=== PATIENT | female | born 1950 | race Caucasian/White ===

== ENCOUNTER 2017-06-25 18:42 | Inpatient (IN) | payer MEDICARE, OTHER ==
[~2017-06-25] VITALS: Ht 165.1 cm; Wt 77.0 kg
[~2017-06-25 18:42] MED LIST: ATROPINE 1 MG/10 ML SYRINGE ONE; CA CHLORIDE 10% 10 ML SYRINGE ONE; EPINEPHrine 0.1 MG/ML SYG ONE; NA BICARBONATE 8.4% 50 ML SYG ONE
[2017-06-25 19:22] LABS: ABNORMAL IP MESSAGE 1; HEMATOCRIT 38.6 % (37.0-47.0); HEMOGLOBIN 12.5 g/dl (12.0-16.0); MEAN CORPUSCULAR HEMOGLOBIN 33.4 pg (29.0-33.0); MEAN CORPUSCULAR HGB CONC 32.4 g/dl (32.0-37.0); MEAN CORPUSCULAR VOLUME 103.2 fl (82.0-101.0); MEAN PLATELET VOLUME 10.5 fl (7.4-10.4); NUCLEATED RED BLOOD CELLS% 0.5 /100WBC (0.0-0.0); PLATELET COUNT 165 10^3/UL (140-415); RED BLOOD COUNT 3.74 10^6/ul (4.20-5.40); RED CELL DISTRIBUTION WIDTH 12.4 % (11.5-14.5); WHITE BLOOD COUNT 6.4 10^3/ul (4.8-10.8)
[2017-06-25 19:25] LABS: POSITIVE DIFF @See below
[2017-06-25 19:37] LABS: INR 1.15; PROTIME 14.7 Sec (12.2-14.2); PT RATIO 1.1
[2017-06-25 19:38] LABS: PARTIAL THROMBOPLASTIN TIME 45.8 Sec (25.0-35.0)
--- NOTE | 2017-06-25 19:39 | RADRPT ---
PROCEDURE: XR Chest. CLINICAL INDICATION: Chest Pain. TECHNIQUE: Single frontal view of the chest was obtained COMPARISON: None FINDINGS: External defibrillator pads project over the lower thorax and left upper quadrant, obscuring underly ing anatomy, and limiting evaluation. There is an endotracheal tube which terminates approximate are centimeters above the walker. There are low lung volumes. The cardiomediastinal silhouette is likely within normal limits, evaluation is limited, as above. There is atherosclerotic calcification of the aorta. There is mild central bronchial wall thickening and diffuse mild interstitial prominence with hazy i nterstitial opacities throughout the left lung. No pneumothorax or significant pleural effusion is seen. The osseous structures, as visualized, are unremarkable. IMPRESSION: 1. Endotracheal tube terminating approximate 4 cm above the walker. 2. Central bronchial wall thickening and diffuse mild prominence of interstitial markings with diff use interstitial opacities, more prominent throughout the left lung, nonspecific but suggestive of a symmetric interstitial pulmonary edema versus bronchogenic pneumonia. 3. Thoracic aortic atherosclerotic disease. RPTAT: QQ Physician Poncho Date Time Electronically viewed and signed by Physician Poncho on 06/25/2017 19:38 LEONIDAS/
[2017-06-25 19:48] LABS: AADO2 Arterial 559.3 mmHg (7.0-24.0); Arterial Base Excess -23.8 mmol/L (-3.0-3); Arterial COHb 0.3 % (0.0-3.0); Arterial Fraction of Oxyhgb 93.1 % (93.0-99.0); Arterial HCO3 8.7 mmol/L (22.0-26.0); Arterial MetHb 0.4 % (0.0-1.5); Arterial Total Hemglobin 12.7 g/dl (12.0-18.0); Blood Gas Mean Airway Pressure 9.7; Blood Gas PS 15; MODE VENT - AC
[2017-06-25 20:00] LABS: MONOCYTES % (M) 3 % (0-11); PLATELET ESTIMATE NORMAL
[2017-06-25] MEDS ORDERED: NA BICARBONATE 8.4% 50 ML SYG IV ONE ×2 (20:00→21:30)
[2017-06-25 20:19] LABS: ALBUMIN 3.4 g/dl (3.3-4.9); ALBUMIN/GLOBULIN RATIO 1.47; BILIRUBIN,INDIRECT 0.1 mg/dl (0-1.1); BILIRUBIN,TOTAL 0.1 mg/dl (0.2-1.3); CALCIUM 9.3 mg/dl (8.4-10.2); CREATININE 1.18 mg/dl (0.44-1.00); TOTAL PROTEIN 5.7 g/dl (6.1-8.1)
[2017-06-25 20:30] LABS: TROPONIN-I 0.078 ng/ml (0.00-0.12)
[2017-06-25] MEDS ORDERED: IOHEXOL 350MG/ML 50 ML BTL ONE (20:59)
[2017-06-25] MEDS ORDERED: IOHEXOL 100 ML ONE (20:59)
[2017-06-25] MEDS ORDERED: SOD CHLORIDE 0.9% 100 ML ONE (20:59)
[2017-06-25] MEDS ORDERED: SOD CHLORIDE 0.9% 1,000 ML IV SCH (21:01)
[2017-06-25] MEDS: SOD CHLORIDE 0.9% 1,000 ML IV SCH (21:01)
[2017-06-25] MEDS ORDERED: ALBUTEROL/IPRATROPIUM (NEB) 3 ML AMP NEB PRN (21:30)
[2017-06-25] MEDS ORDERED: ACETAMINOPHEN 650MG/20.3ML CUP PO PRN ×2 (21:30)
[2017-06-25] MEDS ORDERED: LORAZEPAM 2 MG INJ IV PRN (21:30)
[2017-06-25] MEDS ORDERED: PROPOFOL 100 ML IV SCH (21:30)
[2017-06-25] MEDS ORDERED: ONDANSETRON 4 MG INJ IV PRN (21:30)
[2017-06-25] MEDS ORDERED: ACETAMINOPHEN 650 MG SUPP PR PRN ×2 (21:30)
[2017-06-25] MEDS: ACCU-CHEK XX SCH ×3 (21:30→23:30)
[2017-06-25] MEDS ORDERED: DEXTROSE 50% 50 ML SYRINGE IV PRN ×2 (21:30)
[2017-06-25] MEDS ORDERED: LEVETIRACETAM 1000 MG (PMX) 100 ML IVPB ONE (21:30)
[2017-06-25] MEDS ORDERED: DEXAMETHASONE 10 MG/ML 1 ML INJ IV ONE (21:30)
[2017-06-25] MEDS ORDERED: MEPERIDINE 25 MG INJ IV PRN ×2 (21:30)
[2017-06-25] MEDS ORDERED: NORepinephrine 8MG/250 ML (PMX 250 ML IV SCH (21:30)
--- NOTE | 2017-06-25 23:28 | RADRPT ---
PROCEDURE: CTA chest pulmonary angiography. CLINICAL INDICATION: Cardiac arrest. Possible pulmonary embolism. TECHNIQUE: CT angiography of the chest was performed after the uneventful intravenous administratio n of 125 cc of Omnipaque 350. Coronal and sagittal reformations were performed. 3-D/multiplanar re formations were performed by the technologist and an independent workstation. The total exam CTDI = 42.25, 90.15 mGy and the DLP equals 770.64 mGy-cm. One or more of the following dose reduction techniques were used: - Automated exposure control. - Adjustment of the mA and/or kV according to patient size. - Use of iterative reconstruction technique. COMPARISON: Chest x-ray dated 06/25/2017. FINDINGS: Pulmonary angiogram: There are no emboli through the level of the subsegmental pulmonary arteries. The main pulmonary artery is normal in caliber and there is no evidence of right heart strain. Lungs, pleura, airways, and thoracic inlet: There is dense consolidation throughout the entire left lower lobe, within the superior segment of the right lower lobe, and dependent upper lobes bilatera lly. There is extensive interlobular septal thickening with superimpose ground-glass opacity in the remaining aerated upper lobes, which is patchy through the remaining aerated lower lobes. There are small bilateral pleural effusions. There is no pneumothorax. There is a well-positioned tracheosto my in place and an NG tube with its tip in the stomach. There is a 15 mm hypodense nodule in the lef t thyroid lobe. Cardiovascular system, mediastinum, and lymphatics: The heart is normal in size without pericardial thickening or effusion. There is a small retrosternal hematoma, possibly related to resuscitation. T here are atherosclerotic changes of the aorta, which is nonaneurysmal. There is a ductus diverticulu m of the aorta. There is no axillary, hilar, or mediastinal adenopathy. Visualized upper abdomen: There are benign cysts within the visualized liver. Musculoskeletal system and soft tissues: There are no concerning osseous lesions. The soft tissues are unremarkable. IMPRESSION: 1. No pulmonary emboli through the level of the subsegmental pulmonary arteries. 2. Extensive consolidation involving the entire left lower lobe, superior segment of the right lowe r lobe, and dependent upper lobes bilaterally. Extensive interlobular septal thickening with superim posed ground-glass opacity throughout the remaining aerated lung. Differential considerations inclu de ARDS, extensive aspiration, and multifocal pneumonia. Small bilateral pleural effusions. No pneu mothorax. 3. Small retrosternal hematoma, which may be related to resuscitation. 4. Hypodense nodule in the left thyroid lobe measuring 1.5 cm. Ultrasound can be performed for fur ther evaluation. RPTAT: HLBP .Jani Uribe MD, MD Date Time Electronically viewed and signed by .Jani Uribe MD, on 06/25/2017 23:28 .P/
[2017-06-25 23:29] LABS: AADO2 Arterial 570.2 mmHg (7.0-24.0); Arterial COHb 0.3 % (0.0-3.0); Arterial Fraction of Oxyhgb 96.8 % (93.0-99.0); Arterial HCO3 15.5 mmol/L (22.0-26.0); Arterial MetHb 0.3 % (0.0-1.5); Arterial Total Hemglobin 12.3 g/dl (12.0-18.0); Blood Gas Mean Airway Pressure 14; MODE VENT - AC
--- NOTE | 2017-06-25 23:39 | RADRPT ---
PROCEDURE: CT brain without contrast. CLINICAL INDICATION: Altered mental status. TECHNIQUE: CT scan of the brain was performed on a multi-detector high-resolution CT scanner. Co ntiguous axial images were obtained from the skull base to the vertex without intravenous contrast. Coronal and sagittal reformatted images were also obtained. Images were reviewed on the PACS works tation. One or more of the following dose reduction techniques were used: - Automated exposure control. - Adjustment of the mA and/or kV according to patient size. - Use of iterative reconstruction technique. Exam CTD/vol = 43.18 mGy. Total exam DLP = 851.98 mGy-cm. COMPARISON: None. FINDINGS: The ventricles and cortical sulci are prominent consistent with mild cerebral volume loss. There are no areas of abnormal attenuation within the brain parenchyma. There is no mass effect or midline sh ift. There is no intracranial hemorrhage or abnormal extra-axial collection. There is a small calcif ication within the right lateral ventricle. There are mild atherosclerotic calcifications within keri ateral distal internal carotid arteries. The calvarium is intact. There is no evidence of fracture. Visualized paranasal sinuses and mastoid air cells are clear. IMPRESSION: No acute intracranial abnormality identified. Mild cerebral volume loss. Mild cerebral atherosclerosis. .Ric Montez MD, Date Time Electronically viewed and signed by .Ric Montez MD, on 06/25/2017 23:38 .T/
[2017-06-25] MEDS: PROPOFOL 100 ML IV SCH (23:59)
[2017-06-26] VITALS (48 sets, daily range): BP systolic 94–166; BP diastolic 56–118; PULSE 56–86; RESP 15–20; TEMP 92; Ht 165.1 cm; Wt 77.0 kg
[2017-06-26] MEDS ORDERED: VECURONIUM 10 MG VIAL IV SCH
[2017-06-26] MEDS: INSULIN HUMAN REGULAR 100 UNIT in SOD CHLORIDE 0.9% 99 ML IV SCH (00:18)
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
[2017-06-26] MEDS: ACCU-CHEK XX SCH ×24 (00:31→23:39)
[2017-06-26] MEDS: VECURONIUM 100 MG in DEXTROSE 5% 100 ML IV SCH ×2 (01:30→21:48)
[2017-06-26 01:51] LABS: CK-MB 80.1 ng/ml (0.0-2.4)
[2017-06-26] MEDS ORDERED: NA BICARBONATE 8.4% 50 ML SYG IV ONE (02:00)
[2017-06-26] MEDS ORDERED: CEFEPIME 1GM/50 ML (PMX) 50 ML IVPB ONE (02:00)
[2017-06-26] MEDS ORDERED: VANCOMYCIN 1.5 GM in SOD CHLORIDE 0.9% 250 ML IVPB ONE (02:00)
[2017-06-26 02:06] LABS: TROPONIN-I 1.18 ng/ml (0.00-0.12)
[2017-06-26] MEDS: ARTIFICIAL TEARS 15 ML OPH BOTH EYES SCH ×4 (04:30→18:28)
[2017-06-26] MEDS: OCULAR LUBRICANT 3.5 GM OPH OINT BOTH EYES SCH ×4 (04:30→18:22)
[2017-06-26 05:59] LABS: ABNORMAL IP MESSAGE 1; BASOPHILS % 0.1 % (0.0-2.0); HEMATOCRIT 40.5 % (37.0-47.0); HEMOGLOBIN 13.2 g/dl (12.0-16.0); LYMPHOCYTES # 0.6 10^3/ul (0.8-2.9); MEAN CORPUSCULAR HEMOGLOBIN 31.4 pg (29.0-33.0); MEAN CORPUSCULAR HGB CONC 32.6 g/dl (32.0-37.0); MEAN CORPUSCULAR VOLUME 96.2 fl (82.0-101.0); MEAN PLATELET VOLUME 9.6 fl (7.4-10.4); MONOCYTE # 0.4 10^3/ul (0.3-0.9); MONOCYTES % 2.9 % (0.0-11.0); NEUTROPHILS % 92.5 % (39.0-77.0); PLATELET COUNT 141 10^3/UL (140-415); RED BLOOD COUNT 4.21 10^6/ul (4.20-5.40); RED CELL DISTRIBUTION WIDTH 12.9 % (11.5-14.5); WHITE BLOOD COUNT 14.1 10^3/ul (4.8-10.8)
[2017-06-26] MEDS ORDERED: PANTOPRAZOLE 40 MG INJ IV SCH (06:00)
[2017-06-26 06:02] LABS: INR 1.15; PROTIME 14.7 Sec (12.2-14.2); PT RATIO 1.1
[2017-06-26 06:03] LABS: PARTIAL THROMBOPLASTIN TIME 24.4 Sec (25.0-35.0)
[2017-06-26 06:15] LABS: ALBUMIN 3.7 g/dl (3.3-4.9); ALBUMIN/GLOBULIN RATIO 1.68; BILIRUBIN,INDIRECT 0.4 mg/dl (0-1.1); BILIRUBIN,TOTAL 0.4 mg/dl (0.2-1.3); CALCIUM 8.3 mg/dl (8.4-10.2); CREATININE 0.83 mg/dl (0.44-1.00); TOTAL PROTEIN 5.9 g/dl (6.1-8.1)
[2017-06-26 06:17] LABS: MAGNESIUM 1.8 mg/dl (1.7-2.5); PHOSPHORUS 2.4 mg/dl (2.5-4.9); POSITIVE DIFF @See below; POTASSIUM 2.9 mmol/L (3.5-5.1)
[2017-06-26] MEDS: SOD CHLORIDE 0.9% 1,000 ML IV SCH (06:54)
[2017-06-26] MEDS ORDERED: VANCOMYCIN IV PER PHARMACY XX SCH (07:00)
[2017-06-26] MEDS ORDERED: POTASSIUM CHLORIDE 250 ML IVPB ONE (07:00)
[2017-06-26 07:09] LABS: TROPONIN-I 1.2 ng/ml (0.00-0.12)
--- NOTE | 2017-06-26 07:13 | HP ---
Date/Time of Note Date/Time of Note DATE: 06/26/17 TIME: 06:55 Assessment/Plan VTE Prophylaxis VTE Prophylaxis Intervention: SCD's Lines/Catheters IV C[facility]ter Type [facility]from [facility] Central Line Urinary Cath still in place: Yes Assessment/Plan Assessment/Plan 1. Status post V-fib cardiopulmonary arrest: 40 minutes of resuscitation before ROSC -Will initiate hypothermia protocol -Broad-spectrum antibiotic -Continue vent support. Pressor support as needed -Cardiology and pulmonary consult -will obtain a 2D echo -Neurology consult to evaluate for brain activity -Prognosis is extremely poor 2. Vent dependent respiratory failure -Chest x-ray with extensive consolidation in the right lower lung, most likely aspiration aspiration -Continue vent support and antibiotic -Pulmonary to manage 3. Severe metabolic acidosis -Started bicarb drip 4. Shock liver -Continue hemodynamic stability 5. Renal insufficiency -Nephrology consult CODE STATUS: Full Prognosis: Extremely poor Total critical time spent: About 1 hour HPI/ROS Admit Date/Time Admit Date/Time Jun 25, 2017 at 21:12 Hx of Present Illness This is a 51-year-old female with no past medical history who was brought to the ER after cardiac arrest. Patient was doing water aerobic exercise when she collapsed. CPR was initiated by bystanders. When EMS arrived, she had agonal breathing and had very faint pulse. Shortly after however pulse was lost and was found to be in ventricular fibrillation. ROSC after about 40 minutes of resuscitation including shocks. When she arrived to the ER, she was unresponsive with dilated pupils. No gag or corneal reflex. Initially febrile with a temperature of 100.5. Labs shows creatinine 1.18, bicarb 12, glucose 369, AST 534, ALT 340. ABG on 100% FiO2 showed a pH of 6.9, PCO2 44, PO2 109 bicarb 9. . PMH/Family/Social Past Medical History Medical History: other (Unknown) Past Surgical History Past Surgical Hx: other (Unknown) Family History Significant Family History: other (Unknown) Social History Alcohol Use: other (Unknown) Smoking Status: Unknown if ever smoked Drug Use: other (Unknown) Exam/Review of Systems Vital Signs Vitals Vital Signs Date Time Temp Pulse Resp B/P Pulse Ox O2 Delivery O2 Flow Rate FiO2 06/26/17 06:30 74 20 122/92 100 06/26/17 06:25 50 06/26/17 06:00 Mechanical Ventilator 06/26/17 05:00 90.6 Intake and Output 06/25/17 06/25/17 06/26/17 15:00 23:00 07:00 Intake Total 0 ml Output Total 1613 ml Balance -1613 ml Exam Constitutional: other (Intubated sedated, unresponsive) Head: atraumatic, normocephalic Respiratory: crackles/rales, diminished breath sounds, wheezing Cardiovascular: other (Tachycardic) Gastrointestinal: soft Extremities: normal pulses Labs Result Diagram: 06/26/1751906/26/17 05 Medications Medications Current Medications Sodium Chloride (NS) 1,000 ml @ 100 mls/hr Q10H IV Last administered on 21:01; Admin Dose 100 MLS/HR; Start 06/25/17 at 21:01 Ondansetron HCl (Zofran Inj) 4 mg Q6H PRN IV NAUSEA AND/OR VOMITING; Start at 21:30 Acetaminophen (Tylenol Supp) 650 mg Q4H PRN [place] PAIN LEVEL 1-3 OR FEVER; Start 06/25/17 at 21:30 Lorazepam (Ativan) 1 mg Q2H PRN IV ANXIETY Last administered on 06/25/17 22:02 ; Admin Dose 1 MG; Start 06/25/17 at 21:30 Pantoprazole (Protonix Iv) 40 mg DAILY@06 IV ; Start 06/26/17 at 06:00 Diagnostic Test (Pha) (Accu-Chek) 1 ea Q1H XX Last administered on 06/26/17 05 :41; Admin Dose 1 EA; Start 06/25/17 at 21:30 Dextrose (D50w Syringe) 25 ml Q15M PRN IV Till BS 80 mg/dL or above x2; Start 06/25/17 at 21:30 Dextrose (D50w Syringe) 50 ml Q15M PRN IV Till BS 80 mg/dL or above x2; Start 06/25/17 at 21:30 Meperidine HCl (Demerol) 12.5 mg Q4H PRN IV POST OPERATIVE SHIVERING; Start at 21:30 Meperidine HCl (Demerol) 25 mg Q4H PRN IV POST OPERATIVE SHIVERING; Start 06/25 at 21:30 Eye Lubricant (Akwa Oint) 1 applic Q6 BOTH EYES ; Start 06/26/17 at 00:00 Eye Lubricant 2 drop 2 drop Q6 BOTH EYES ; Start 06/26/17 at 00:00 Vecuronium [place] 100 mg/ Dextrose 100 ml @ 4.62 mls/hr [id number] IV Last administered on 06/26/17t 01:30; Admin Dose 4.62 MLS/HR; Start 06/26/17 at 00:30 Potassium Chloride 250 ml @ 62.5 mls/hr ONCE ONCE IVPB ; Start 06/26/17 at 07: 00; Stop 06/26/17 at 10:59 Potassium Chloride 20 meq/ Sodium Chloride 110 ml @ 55 mls/hr ONCE ONCE IVPB ; Start 06/26/17 at 11:00; Stop 06/26/17 at 12:59 Cefepime HCl (Maxipime 1gm/50 ml (Pmx)) 50 ml @ 100 mls/hr Q12 IVPB ; Start at 09:00; Status UNV DIA RODRIGUEZ MD Jun 26, 2017 07:11
[2017-06-26 08:49] LABS: AADO2 Arterial 493.8 mmHg (7.0-24.0); Arterial Base Excess -12.3 mmol/L (-3.0-3); Arterial COHb 0.3 % (0.0-3.0); Arterial Fraction of Oxyhgb 98.3 % (93.0-99.0); Arterial HCO3 14.7 mmol/L (22.0-26.0); Arterial MetHb 0.4 % (0.0-1.5); Arterial Total Hemglobin 14.1 g/dl (12.0-18.0); Blood Gas Mean Airway Pressure 15; MODE VENT - AC
[2017-06-26] MEDS: CEFEPIME 1GM/50 ML (PMX) 50 ML IVPB SCH ×2 (09:02→22:19)
[2017-06-26 09:46] LABS: Allen Test ACCEPTAB; Arterial Base Excess -9.6 mmol/L (-3.0-3); Arterial COHb 0.3 % (0.0-3.0); Arterial Fraction of Oxyhgb 96.6 % (93.0-99.0); Arterial HCO3 15.6 mmol/L (22.0-26.0); Arterial MetHb 0.3 % (0.0-1.5); Arterial Total Hemglobin 14.6 g/dl (12.0-18.0); MODE VENT - AC
--- NOTE | 2017-06-26 10:24 | CONS ---
Date/Time of Note Date/Time of Note DATE: 06/26/17 TIME: 10:18 Assessment/Plan Assessment/Plan Additional Assessment/Plan CT head was done yesterday which is essentially unremarkable. Chest x-ray also was reviewed which is showing endotracheal tube at an adequate level. There are patchy bilateral alveolar infiltrates. Next Current ventilator setting; AC of 20, tidal volume 500, PEEP of 5, 40% FiO2. Patient is on propofol at 5 mics per kilogram per minute. Insulin drip. Vecuronium drip. Assessment and recommendations; 1. Patient admitted with cardiac arrest status post along CPR. 2. Likely aspiration pneumonia. 3. Rhabdo myelolysis. 4. Acute renal injury. 5. Shock liver. Continue current treatment. Add sodium bicarbonate drip. Monitor renal function. Will obtain follow-up chest x-ray in 24 hours. Continue current antibiotics. Outcome will depend upon adequate neurological recovery. Consultation Date/Type/Reason Admit Date/Time Jun 25, 2017 at 21:12 Date of Consultation: Jun 26, 2017 Type of Consultation: Pulmonary/critical care Reason for Consultation Pulmonary consultation obtained for evaluation of respiratory failure. Next History of presenting illness; patient is a 66-year-old white lady who was brought into the hospital yesterday after sustaining cardiac arrest while doing aerobic exercise. Patient had a long CPR done lasting approximately 40 minutes with revival of vital signs. By the time I saw the patient this morning the patient is orally intubated, on mechanical ventilation and on hypothermia protocol. History was obtained from medical records. Past medical history; essentially unremarkable. Next Medications; reviewed. Allergies; not available. Family history, social history, occupational histories not available. Review of systems; currently unable to be obtained. General exam; elderly woman, orally intubated, sedated and paralyzed. Past Medical History Medical History: other (Unknown) Past Surgical History Past Surgical Hx: other (Unknown) Social History Alcohol Use: other (Unknown) Smoking Status: Unknown if ever smoked Drug Use: other (Unknown) Exam/Review of Systems Vital Signs Vitals Vital Signs Date Time Temp Pulse Resp B/P Pulse Ox O2 Delivery O2 Flow Rate FiO2 06/26/17 08:00 82 06/26/17 07:00 91.5 06/26/17 06:30 20 122/92 100 06/26/17 06:25 50 06/26/17 06:00 Mechanical Ventilator Intake and Output 06/25/17 06/25/17 06/26/17 15:00 23:00 07:00 Intake Total 16.32 ml Output Total 1792 ml Balance -1775.68 ml Exam HEENT exam; supple neck, no JVD. No lymphadenopathy. Midline trachea. No thyromegaly. Orally intubated. Pupils are midsize and sluggishly reactive to light. Patient has fair dentition. Chest exam; clear to auscultation. S1-S2 audible, no murmurs. Regular rhythm. Abdomen exam; soft, no organomegaly. Bowel sounds are absent. Extremity exam; no peripheral edema. Pulses 1+ bilaterally. TRAINING DEVELOPMENT SPECIALIST exam; patient is sedated and paralyzed. Results Result Diagram: 06/26/17 0520 06/26/17 0520 Results 24 hrs Laboratory Tests Test 06/25/17 19:00 06/25/17 19:10 06/25/17 19:50 06/25/17 21:01 Blood Gas Specimen Source Blood arterial Blood arterial Arterial Blood Date Drawn 06/25/2017 7:40:28 PM 06/25/2017 11:20:35 PM Arterial Blood pH (Temp corrected) 6.907 *L 7.256 *L Arterial Blood pCO2 (Temp correct) 44.5 35.3 Arterial Blood pO2 (Temp corrected) 109.2 H 110.1 H Arterial Blood HCO3 8.7 *L 15.5 L Arterial Blood Base Excess -23.8 L -11.0 L Arterial Blood Oxygen Saturation 93.8 L 97.4 Azeem Test N/A N/A Arterial Blood Gas Puncture Site LB Femoral Arterial Blood Carboxyhemoglobin 0.3 0.3 Arterial Blood Methemoglobin 0.4 0.3 Blood Gas A-a O2 Differential 559.3 H 570.2 H Oxyhemoglobin Percent 93.1 96.8 Total Hemoglobin 12.7 12.3 Blood Gas Temperature 37.0 36.0 Blood Gas Respiration Rate 20.0 20.0 Blood Gas Actual Respiration Rate 27 30 Blood Gas Modality VENT - AC VENT - AC FiO2 100.0 100.0 Blood Gas Tidal Volume 450.0 450.0 Blood Gas Mean Airway Pressure 9.7 14 Blood Gas Low PEEP Setting 10.0 10.0 Blood Gas Inspiratory Pressure 15.0 24.0 Blood Gas Pressure Support 15 Blood Gas Critical Value Read Back [place] PERDOMO DR., G. Blood Gas Notified Whom BL BL Blood Gas Notified Time 06/25/2017 7:48:27 PM 06/25/2017 11:28:50 PM White Blood Count 6.4 Red Blood Count 3.74 L Hemoglobin 12.5 Hematocrit 38.6 Mean Corpuscular Volume 103.2 H Mean Corpuscular Hemoglobin 33.4 H Mean Corpuscular Hemoglobin Concent 32.4 Red Cell Distribution Width 12.4 Platelet Count 165 Mean Platelet Volume 10.5 H Neutrophils % Segmented Neutrophils % (Manual) 6 L Lymphocytes % Lymphocytes % (Manual) 91 H Monocytes % Monocytes % (Manual) 3 Eosinophils % Basophils % Nucleated Red Blood Cells % 0.5 H Neutrophils # (Manual) Absolute Lymphocytes (Manual) 5.8 H Lymphocytes # Monocytes # Absolute Monocytes (Manual) 0.1 L Eosinophils # Basophils # Nucleated Red Blood Cells # Platelet Estimate NORMAL Prothrombin Time 14.7 H Prothrombin Time Ratio 1.1 INR International Normalized Ratio 1.15 Activated Partial Thromboplast Time 45.8 H Sodium Level 137 Potassium Level 4.0 Chloride Level 104 Carbon Dioxide Level 12 L Anion Gap 25 H Blood Urea Nitrogen 18 Creatinine 1.18 H Glucose Level 369 H Calcium Level 9.3 Total Bilirubin 0.1 L Direct Bilirubin 0.00 Indirect Bilirubin 0.1 Aspartate Amino Transf (AST/SGOT) 534 H Alanine Aminotransferase (ALT/SGPT) 340 H Alkaline Phosphatase 64 Troponin I 0.078 Total Protein 5.7 L Albumin 3.4 Globulin 2.30 Albumin/Globulin Ratio 1.47 Test 06/25/17 23:59 06/26/17 00:37 06/26/17 01:09 06/26/17 01:27 Bedside Glucose 237 H 235 H 193 Creatine Kinase Creatine Kinase Index 0.8 Creatinine Kinase MB (Mass) 80.10 H Troponin I 1.180 *H Test 06/26/17 02:28 06/26/17 03:01 06/26/17 03:27 06/26/17 04:52 Bedside Glucose 165 170 171 Blood Gas Specimen Source Blood arterial Arterial Blood Date Drawn 06/26/2017 3:10:20 AM Arterial Blood pH (Temp corrected) 7.263 *L Arterial Blood pCO2 (Temp correct) 31.7 L Arterial Blood pO2 (Temp corrected) 196.5 H Arterial Blood HCO3 14.7 L Arterial Blood Base Excess -12.3 L Arterial Blood Oxygen Saturation 99.0 H Azeem Test N/A Arterial Blood Gas Puncture Site Femoral Arterial Blood Carboxyhemoglobin 0.3 Arterial Blood Methemoglobin 0.4 Blood Gas A-a O2 Differential 493.8 H Oxyhemoglobin Percent 98.3 Total Hemoglobin 14.1 Blood Gas Temperature 33.2 Blood Gas Respiration Rate 20.0 Blood Gas Actual Respiration Rate 20 Blood Gas Modality VENT - AC FiO2 100.0 Blood Gas Tidal Volume 450.0 Blood Gas Mean Airway Pressure 15 Blood Gas Low PEEP Setting 10.0 Blood Gas Inspiratory Pressure 26.0 Blood Gas Critical Value Read Back HYDRO EXCAVATION OPERATORJIMMY ARTEAGA. Blood Gas Notified Whom BL Blood Gas Notified Time 06/26/2017 3:19:02 AM Test 06/26/17 05:20 06/26/17 05:40 06/26/17 06:31 06/26/17 07:59 White Blood Count 14.1 #H Red Blood Count 4.21 Hemoglobin 13.2 Hematocrit 40.5 Mean Corpuscular Volume 96.2 Mean Corpuscular Hemoglobin 31.4 Mean Corpuscular Hemoglobin Concent 32.6 Red Cell Distribution Width 12.9 Platelet Count 141 Mean Platelet Volume 9.6 Neutrophils % 92.5 H Lymphocytes % 4.0 L Monocytes % 2.9 Eosinophils % 0.0 Basophils % 0.1 Nucleated Red Blood Cells % 0.0 Neutrophils # (Manual) 13 H Lymphocytes # 0.6 L Monocytes # 0.4 Eosinophils # 0.0 Basophils # 0.0 Nucleated Red Blood Cells # 0.0 Prothrombin Time 14.7 H Prothrombin Time Ratio 1.1 INR International Normalized Ratio 1.15 Activated Partial Thromboplast Time 24.4 L Fibrinogen 160.0 L Sodium Level 148 H Potassium Level 2.9 *L Chloride Level 109 Carbon Dioxide Level 21 Anion Gap 21 H Blood Urea Nitrogen 19 Creatinine 0.83 Glucose Level 185 # Calcium Level 8.3 L Phosphorus Level 2.4 L Magnesium Level 1.8 Total Bilirubin 0.4 Direct Bilirubin 0.00 Indirect Bilirubin 0.4 Aspartate Amino Transf (AST/SGOT) 992 H Alanine Aminotransferase (ALT/SGPT) 406 H Alkaline Phosphatase 75 Creatine Kinase 00330 H Creatine Kinase Index 0.8 Creatinine Kinase MB (Mass) 115.00 H Troponin I 1.200 *H Total Protein 5.9 L Albumin 3.7 Globulin 2.20 Albumin/Globulin Ratio 1.68 Amylase Level 244 H Bedside Glucose 167 167 136 Test 06/26/17 09:01 06/26/17 10:05 Blood Gas Specimen Source Blood arterial Arterial Blood Date Drawn 06/26/2017 9:35:27 AM Arterial Blood pH (Temp corrected) 7.338 L Arterial Blood pCO2 (Temp correct) 28.9 L Arterial Blood pO2 (Temp corrected) 85.6 Arterial Blood HCO3 15.6 L Arterial Blood Base Excess -9.6 L Arterial Blood Oxygen Saturation 97.2 Azeem Test ACCEPTAB Arterial Blood Gas Puncture Site Right Radial Arterial Blood Carboxyhemoglobin 0.3 Arterial Blood Methemoglobin 0.3 Blood Gas A-a O2 Differential 169.0 H Oxyhemoglobin Percent 96.6 Total Hemoglobin 14.6 Blood Gas Temperature 34.3 Blood Gas Respiration Rate 20.0 Blood Gas Actual Respiration Rate 20 Blood Gas Modality VENT - AC FiO2 40.0 Blood Gas Tidal Volume 500.0 Blood Gas Low PEEP Setting 5.0 Blood Gas Notified Whom CW Blood Gas Notified Time 06/26/2017 9:46:28 AM Bedside Glucose 150 Medications Medications Current Medications Sodium Chloride (NS) 1,000 ml @ 100 mls/hr Q10H IV Last administered on 06:54; Admin Dose 100 MLS/HR; Start 06/25/17 at 21:01 Ondansetron HCl (Zofran Inj) 4 mg Q6H PRN IV NAUSEA AND/OR VOMITING; Start at 21:30 Acetaminophen (Tylenol Supp) 650 mg Q4H PRN [place] PAIN LEVEL 1-3 OR FEVER; Start 06/25/17 at 21:30 Lorazepam (Ativan) 1 mg Q2H PRN IV ANXIETY Last administered on 06/25/17 22:02 ; Admin Dose 1 MG; Start 06/25/17 at 21:30 Pantoprazole (Protonix Iv) 40 mg DAILY@06 IV Last administered on 06/26/17 06: 53; Admin Dose 40 MG; Start 06/26/17 at 06:00 Diagnostic Test (Pha) (Accu-Chek) 1 ea Q1H XX Last administered on 06/26/17 08 :00; Admin Dose 1 EA; Start 06/25/17 at 21:30 Dextrose (D50w Syringe) 25 ml Q15M PRN IV Till BS 80 mg/dL or above x2; Start 06/25/17 at 21:30 Dextrose (D50w Syringe) 50 ml Q15M PRN IV Till BS 80 mg/dL or above x2; Start 06/25/17 at 21:30 Meperidine HCl (Demerol) 12.5 mg Q4H PRN IV POST OPERATIVE SHIVERING; Start at 21:30 Meperidine HCl (Demerol) 25 mg Q4H PRN IV POST OPERATIVE SHIVERING; Start 06/25 at 21:30 Eye Lubricant (Akwa Oint) 1 applic Q6 BOTH EYES Last administered on 06/26/17 06:53; Admin Dose 1 APPLIC; Start 06/26/17 at 00:00 Eye Lubricant 2 drop 2 drop Q6 BOTH EYES Last administered on 06/26/17 06:53; Admin Dose 2 DROP; Start 06/26/17 at 00:00 Vecuronium [place] 100 mg/ Dextrose 100 ml @ 4.62 mls/hr [id number] IV Last administered on 06/26/17 01:30; Admin Dose 4.62 MLS/HR; Start 06/26/17 at 00:30 Potassium Chloride 250 ml @ 62.5 mls/hr ONCE ONCE IVPB Last administered on 06:54; Admin Dose 62.5 MLS/HR; Start 06/26/17 at 07:00; Stop 06/26/17 at 10:59 Potassium Chloride 20 meq/ Sodium Chloride 110 ml @ 55 mls/hr ONCE ONCE IVPB ; Start 06/26/17 at 11:00; Stop 06/26/17 at 12:59 Cefepime HCl 50 ml @ 100 mls/hr Q12 IVPB Last administered on 06/26/17 09:02 ; Admin Dose 100 MLS/HR; Start 06/26/17 at 09:00 Vancomycin HCl (Vancocin) 250 ml @ 125 mls/hr Q12H IVPB ; Start 06/26/17 at 15: 00 KATEY ROWE Jun 26, 2017 10:24
--- NOTE | 2017-06-26 10:52 | RADRPT ---
PROCEDURE: XR Chest. CLINICAL INDICATION: Shortness of breath. TECHNIQUE: A single portable view of the chest was obtained. COMPARISON: 06/25/2017 FINDINGS: A nasogastric tube is seen in the proximal gastric lumen. The endotracheal tube is essentially uncha nged. The cardiomediastinal silhouette is within normal limits. Diffuse ill-defined air space diseas e is seen which is increased compared to the prior examination. No discrete pleural effusion is seen . The soft tissues and osseous structures are unremarkable. IMPRESSION: 1. Interval placement of a nasogastric tube with the tip in the proximal gastric lumen. Recommend advancement approximately 45 cm. 2. Diffuse ill-defined air space disease which is increased compared to the prior examination. RPTAT: HPNM Physician Kavin Date Time Electronically viewed and signed by Physician Kavin on 06/26/2017 10:52 /
[2017-06-26] MEDS ORDERED: POTASSIUM CHLORIDE 20 MEQ in SOD CHLORIDE 0.9% 100 ML IVPB ONE (11:00)
[2017-06-26 11:26] LABS: ABNORMAL IP MESSAGE 1; BASOPHILS % 0.2 % (0.0-2.0); HEMOGLOBIN 13.4 g/dl (12.0-16.0); LYMPHOCYTES # 0.6 10^3/ul (0.8-2.9); LYMPHOCYTES % 4.1 % (15.0-51.0); MEAN CORPUSCULAR HEMOGLOBIN 32.4 pg (29.0-33.0); MEAN CORPUSCULAR HGB CONC 34.4 g/dl (32.0-37.0); MEAN CORPUSCULAR VOLUME 94.4 fl (82.0-101.0); MEAN PLATELET VOLUME 9.6 fl (7.4-10.4); MONOCYTE # 0.6 10^3/ul (0.3-0.9); MONOCYTES % 4.2 % (0.0-11.0); PLATELET COUNT 132 10^3/UL (140-415); RED BLOOD COUNT 4.13 10^6/ul (4.20-5.40); RED CELL DISTRIBUTION WIDTH 12.6 % (11.5-14.5); WHITE BLOOD COUNT 14.5 10^3/ul (4.8-10.8)
[2017-06-26 11:29] LABS: POSITIVE DIFF @See below
[2017-06-26 11:30] LABS: NEUTROPHILS % 90.9 % (39.0-77.0)
[2017-06-26 11:36] LABS: INR 1.03; PARTIAL THROMBOPLASTIN TIME 23.3 Sec (25.0-35.0); PROTIME 13.5 Sec (12.2-14.2); PT RATIO 1.1
[2017-06-26 11:40] LABS: CALCIUM 7.9 mg/dl (8.4-10.2); CREATININE 0.73 mg/dl (0.44-1.00); MAGNESIUM 1.6 mg/dl (1.7-2.5); PHOSPHORUS 2.2 mg/dl (2.5-4.9); POTASSIUM 3.5 mmol/L (3.5-5.1)
[2017-06-26 11:51] LABS: TROPONIN-I 1.25 ng/ml (0.00-0.12)
[2017-06-26] MEDS: SODIUM BICARBONATE (IV ADD) 100 MEQ in DEXTROSE 5% 900 ML IV SCH (12:16)
--- NOTE | 2017-06-26 13:48 | RADRPT ---
Vent Rate: 71 bpm RR Interval: 0 msec CO Interval: 174 msec QRS Duration: 104 msec QT Interval: 484 msec QTC Interval: 525 msec P-R-T [place]: 77 - 20 - 72 degrees Sinus rhythm with occasional , and consecutive premature ventricular complexes Nonspecific ST abnormality Prolonged QT Abnormal ECG Electronically Signed By: Leif Obrien [id number]
--- NOTE | 2017-06-26 13:53 | RADRPT ---
Vent Rate: 72 bpm RR Interval: 0 msec NM Interval: 176 msec QRS Duration: 104 msec QT Interval: 470 msec QTC Interval: 514 msec P-R-T [place]: 73 - 18 - 70 degrees Sinus rhythm with occasional premature ventricular complexes Nonspecific ST abnormality Prolonged QT Abnormal ECG Electronically Signed By: Leif Obrien [id number]
[2017-06-26] MEDS ORDERED: LABETALOL HCL 20MG INJ IV PRN (15:00)
[2017-06-26] MEDS ORDERED: MAGNESIUM SULFATE 1 GM/D5W 100 ML IVPB ONE (15:00)
[2017-06-26] MEDS: VANCOMYCIN 1 GM in NS 250 ML IVPB SCH (15:20)
[2017-06-26 15:21] LABS: AADO2 Arterial 195.8 mmHg (7.0-24.0); Allen Test ACCEPTAB; Arterial Base Excess -10.1 mmol/L (-3.0-3); Arterial COHb 0.3 % (0.0-3.0); Arterial Fraction of Oxyhgb 94.7 % (93.0-99.0); Arterial HCO3 14.9 mmol/L (22.0-26.0); Arterial MetHb 0.1 % (0.0-1.5); Arterial Total Hemglobin 14.5 g/dl (12.0-18.0); MODE VENT - AC
[2017-06-26 18:06] LABS: BASOPHILS % 0.1 % (0.0-2.0); HEMATOCRIT 35.3 % (37.0-47.0); HEMOGLOBIN 12.1 g/dl (12.0-16.0); LYMPHOCYTES # 0.8 10^3/ul (0.8-2.9); LYMPHOCYTES % 7.7 % (15.0-51.0); MEAN CORPUSCULAR HEMOGLOBIN 32.2 pg (29.0-33.0); MEAN CORPUSCULAR HGB CONC 34.3 g/dl (32.0-37.0); MEAN CORPUSCULAR VOLUME 93.9 fl (82.0-101.0); MEAN PLATELET VOLUME 9.5 fl (7.4-10.4); MONOCYTE # 0.3 10^3/ul (0.3-0.9); NEUTROPHILS % 88.6 % (39.0-77.0); PLATELET COUNT 115 10^3/UL (140-415); RED BLOOD COUNT 3.76 10^6/ul (4.20-5.40); RED CELL DISTRIBUTION WIDTH 12.5 % (11.5-14.5); WHITE BLOOD COUNT 10.7 10^3/ul (4.8-10.8)
[2017-06-26 18:22] LABS: INR 1.03; PROTIME 13.5 Sec (12.2-14.2); PT RATIO 1.1
[2017-06-26 18:23] LABS: PARTIAL THROMBOPLASTIN TIME 23.5 Sec (25.0-35.0)
[2017-06-26 18:27] LABS: CALCIUM 7.6 mg/dl (8.4-10.2); CREATININE 0.66 mg/dl (0.44-1.00); MAGNESIUM 2.1 mg/dl (1.7-2.5)
[2017-06-26 18:41] LABS: TROPONIN-I 1.43 ng/ml (0.00-0.12)
[2017-06-26] MEDS: PROPOFOL 100 ML IV SCH (20:05)
[2017-06-26 21:05] LABS: Allen Test ACCEPTAB; Arterial Base Excess -4.7 mmol/L (-3.0-3); Arterial COHb 0.3 % (0.0-3.0); Arterial Fraction of Oxyhgb 96.8 % (93.0-99.0); Arterial HCO3 18.5 mmol/L (22.0-26.0); Arterial MetHb 0.1 % (0.0-1.5); Arterial Total Hemglobin 13.3 g/dl (12.0-18.0); Blood Gas Mean Airway Pressure 11; MODE VENT - AC
[2017-06-26] MEDS ORDERED: ACETAMINOPHEN 650 MG SUPP PR SCH (21:30)
[2017-06-26] MEDS ORDERED: ACETAMINOPHEN 650MG/20.3ML CUP PO SCH (21:30)
[2017-06-26] MEDS: FAMOTIDINE 20 MG INJ IV SCH (22:19)
[2017-06-26 23:41] LABS: BASOPHILS % 0.1 % (0.0-2.0); EOSINOPHILS % 0.1 % (0.0-7.0); HEMATOCRIT 35.1 % (37.0-47.0); HEMOGLOBIN 12.5 g/dl (12.0-16.0); LYMPHOCYTES # 0.9 10^3/ul (0.8-2.9); LYMPHOCYTES % 5.7 % (15.0-51.0); MEAN CORPUSCULAR HEMOGLOBIN 32.6 pg (29.0-33.0); MEAN CORPUSCULAR HGB CONC 35.6 g/dl (32.0-37.0); MEAN CORPUSCULAR VOLUME 91.4 fl (82.0-101.0); MEAN PLATELET VOLUME 10.3 fl (7.4-10.4); MONOCYTE # 0.6 10^3/ul (0.3-0.9); MONOCYTES % 3.7 % (0.0-11.0); NEUTROPHILS % 89.7 % (39.0-77.0); PLATELET COUNT 127 10^3/UL (140-415); RED BLOOD COUNT 3.84 10^6/ul (4.20-5.40); RED CELL DISTRIBUTION WIDTH 12.5 % (11.5-14.5); WHITE BLOOD COUNT 15.2 10^3/ul (4.8-10.8)
[2017-06-27] VITALS (62 sets, daily range): BP systolic 77–159; BP diastolic 44–107; PULSE 55–111; RESP 14–24
[2017-06-27 00:01] LABS: INR 0.95; PROTIME 12.7 Sec (12.2-14.2)
[2017-06-27 00:01] LABS: AADO2 Arterial 276.8 mmHg (7.0-24.0); Allen Test ACCEPTAB; Arterial Base Excess -3.7 mmol/L (-3.0-3); Arterial COHb 0.3 % (0.0-3.0); Arterial Fraction of Oxyhgb 98.4 % (93.0-99.0); Arterial HCO3 18.8 mmol/L (22.0-26.0); Arterial MetHb 0.1 % (0.0-1.5); Arterial Total Hemglobin 13.7 g/dl (12.0-18.0); Blood Gas Mean Airway Pressure 11; MODE VENT - AC
[2017-06-27 00:02] LABS: CALCIUM 7.7 mg/dl (8.4-10.2); CREATININE 0.53 mg/dl (0.44-1.00); MAGNESIUM 1.7 mg/dl (1.7-2.5); PHOSPHORUS 2.7 mg/dl (2.5-4.9); POTASSIUM 3.1 mmol/L (3.5-5.1)
[2017-06-27 00:15] LABS: TROPONIN-I 1.57 ng/ml (0.00-0.12)
[2017-06-27] MEDS: ACCU-CHEK XX SCH ×24 (00:30→23:32)
[2017-06-27] MEDS: ARTIFICIAL TEARS 15 ML OPH BOTH EYES SCH ×5 (00:56→23:55)
[2017-06-27] MEDS: OCULAR LUBRICANT 3.5 GM OPH OINT BOTH EYES SCH ×5 (00:56→23:55)
[2017-06-27] MEDS: INSULIN HUMAN REGULAR 100 UNIT in SOD CHLORIDE 0.9% 99 ML IV SCH (00:59)
[2017-06-27] MEDS ORDERED: SOD CHLORIDE 0.9% 1,000 ML IV ONE (01:00)
[2017-06-27] MEDS: SODIUM BICARBONATE (IV ADD) 100 MEQ in DEXTROSE 5% 900 ML IV SCH (01:03)
[2017-06-27] MEDS: ACETAMINOPHEN 650MG/20.3ML CUP NGT SCH ×5 (02:13→23:54)
[2017-06-27] MEDS: VANCOMYCIN 1 GM in NS 250 ML IVPB SCH ×2 (03:58→15:20)
[2017-06-27 05:34] LABS: BASOPHILS % 0.1 % (0.0-2.0); HEMOGLOBIN 11.5 g/dl (12.0-16.0); LYMPHOCYTES % 6.4 % (15.0-51.0); MEAN CORPUSCULAR HEMOGLOBIN 31.2 pg (29.0-33.0); MEAN CORPUSCULAR HGB CONC 34.8 g/dl (32.0-37.0); MEAN CORPUSCULAR VOLUME 89.4 fl (82.0-101.0); MEAN PLATELET VOLUME 10.2 fl (7.4-10.4); MONOCYTE # 0.6 10^3/ul (0.3-0.9); NEUTROPHILS % 88.9 % (39.0-77.0); PLATELET COUNT 121 10^3/UL (140-415); RED BLOOD COUNT 3.69 10^6/ul (4.20-5.40); RED CELL DISTRIBUTION WIDTH 12.3 % (11.5-14.5); WHITE BLOOD COUNT 15.6 10^3/ul (4.8-10.8)
[2017-06-27 05:52] LABS: INR 1.01; PROTIME 13.3 Sec (12.2-14.2)
[2017-06-27 05:53] LABS: PARTIAL THROMBOPLASTIN TIME 25.5 Sec (25.0-35.0)
[2017-06-27 06:03] LABS: CALCIUM 7.2 mg/dl (8.4-10.2); CREATININE 0.46 mg/dl (0.44-1.00); MAGNESIUM 1.5 mg/dl (1.7-2.5); PHOSPHORUS 2.7 mg/dl (2.5-4.9)
[2017-06-27 06:08] LABS: POTASSIUM 2.8 mmol/L (3.5-5.1); TROPONIN-I 1.66 ng/ml (0.00-0.12)
[2017-06-27 07:39] LABS: AADO2 Arterial 224.7 mmHg (7.0-24.0); Allen Test ACCEPTAB; Arterial Base Excess -5.6 mmol/L (-3.0-3); Arterial COHb 0.3 % (0.0-3.0); Arterial Fraction of Oxyhgb 98.1 % (93.0-99.0); Arterial MetHb 0.1 % (0.0-1.5); Arterial Total Hemglobin 12.3 g/dl (12.0-18.0); Blood Gas Mean Airway Pressure 11; MODE VENT - AC
[2017-06-27] MEDS ORDERED: VECURONIUM 100 MG in DEXTROSE 5% 100 ML IV SCH (08:00)
[2017-06-27] MEDS: CEFEPIME 1GM/50 ML (PMX) 50 ML IVPB SCH ×2 (09:08→21:13)
[2017-06-27] MEDS: FAMOTIDINE 20 MG INJ IV SCH ×2 (09:08→21:08)
--- NOTE | 2017-06-27 09:14 | RADRPT ---
Echocardiogram Report Patient Name: VICKI TEIXEIRA Gender: Female Date: 1950 Study Date: 26-Jun-2017 Social Media Strategist: MELISSA Location: I Ref. Physician: DIA RODRIGUEZ Quality: Technically Difficult Study Procedures: Transthoracic echocardiogram examination. Indications: Cardiac Arrest. 2D/M Mode Doppler Measurement Value Normal Range Measurement Value Normal Range AV Peak Power 0.8 m/sec AV Peak PG 2.7 mmHg LVOT Peak Power 0.5 m/sec LVOT Peak PG 1.2 mmHg MV E Peak Power 0.4 m/sec MV A Peak Power 0.8 m/sec MV E/A 0.4 MV Decel Time 163 msec MV Decel Mower 2 MV E/A 0.4 Findings Left Ventricle: Normal left ventricular cavity size. Severe left ventricular systolic dysfunction. Tissue Doppler/Mitral Doppler indices are consistent with impaired relaxation (Stage I diastolic dysfunction). Normal left ventricular wall thickness. The left ventricular ejection fraction is visually estimated at <25 %. These segments of the LV are akinetic: anterior apex segment, lateral apex segment, inferior apex segment, mid anterior segment, lateral mid segment, posterior mid segment, inferior mid segment and mid septum segment. Right Ventricle: Normal right ventricular size. Left Atrium: The left atrium is normal in size and appearance. Right Atrium: The right atrium is normal in size and appearance. Atrial Septum: The atrial septum is not well visualized. Mitral Valve: Normal appearance of the mitral valve leaflets. No mitral valve regurgitation is seen. Aortic Valve: The aortic valve is not well visualized. No hemodynamically significant aortic stenosis by Doppler. No aortic regurgitation. Tricuspid Valve: Normal appearance of the tricuspid valve. No evidence of tricuspid regurgitation. Pulmonic Valve: The pulmonic valve is not well visualized. Pericardium: Normal pericardium with no significant pericardial effusion. Aorta: Normal aortic root. IVC: Normal inferior vena cava appearance. Pulmonary Artery: Pulmonary artery is not well visualized. Conclusions 1.Normal left ventricular cavity size. Severe left ventricular systolic dysfunction. Tissue Doppler/Mitral Doppler indices are consistent with impaired relaxation (Stage I diastolic dysfunction). Normal left ventricular wall thickness. The left ventricular ejection fraction is visually estimated at <25 %. These segments of the LV are akinetic: anterior apex segment, lateral apex segment, inferior apex segment, mid anterior segment, lateral mid segment, posterior mid segment, inferior mid segment and mid septum segment. Electronically Signed By: Ygoi Ozuna 27-Jun-2017 09:13:37 -0700 Patient Name: VICKI TEIXEIRA Study Date: 26-Jun-2017 [id number]
--- NOTE | 2017-06-27 09:24 | CONS ---
Date/Time of Note Date/Time of Note DATE: 06/27/17 TIME: 09:21 Assessment/Plan Assessment/Plan Additional Assessment/Plan Ventilator settings AC of 20, tidal volume 500, PEEP of 5, 40% FiO2. Patient also is on bicarb drip. Currently been weaned off paralytic agent. Assessment and recommendations; 1. Patient admitted with cardiac arrest status post along CPR likely causing anoxic brain injury as evidenced by myoclonic jerking. 2. Shock liver. 3. Possibly some element of aspiration pneumonia. 4. Patient currently has been hyperventilated. 5. Rhabdomyolysis. Ventilator settings have been adjusted. Discontinue sodium bicarbonate drip. Add Depakote 500 mg every 8 hours. Obtain follow-up chest x-ray. Prognosis depends upon adequate mental status recovery. 35 minutes of critical care time was spent evaluating the patient. Consultation Date/Type/Reason Admit Date/Time Jun 25, 2017 at 21:12 Initial Consult Date 06/26/17 Type of Consultation: Pulmonary/critical care 24 HR Interval Summary Free Text/Dictation Patient condition remains critical. Patient now been taken off hypothermia protocol. Currently still sedated and paralyzed. Patient is having what appears to be myoclonic jerking. General exam; elderly woman, orally intubated, sedated and paralyzed. Currently in no distress. Occasional ocular myoclonic jerking observed. Exam/Review of Systems Vital Signs Vitals Vital Signs Date Time Temp Pulse Resp B/P Pulse Ox O2 Delivery O2 Flow Rate FiO2 06/27/17 08:00 40 06/27/17 08:00 86 06/27/17 07:00 93.0 06/27/17 06:30 20 138/105 100 Mechanical Ventilator Intake and Output 06/26/17 06/26/17 06/27/17 15:00 23:00 07:00 Intake Total 982.32 ml 1072.76 ml 1941.12 ml Output Total 1110 ml 282 ml 787 ml Balance -127.68 ml 790.76 ml 1154.12 ml Exam HEENT exam; supple neck, no JVD. No lymphadenopathy. Midline trachea. No thyromegaly. Orally intubated. Pupils are very sluggishly reactive to light. Patient has fair dentition. Chest exam; clear to auscultation. S1-S2 audible, no murmurs. Regular rhythm. Abdomen exam; soft, nondistended. Bowel sounds are sluggish. No organomegaly felt. Extremity exam; no peripheral edema. [employer] exam; patient is sedated and paralyzed but is still having occasional ocular myoclonic jerking. Results Result Diagram: 06/27/17 0510 06/27/17 0510 Results 24 hrs Laboratory Tests Test 06/26/17 10:05 06/26/17 11:05 06/26/17 12:38 06/26/17 13:31 Bedside Glucose 150 193 150 White Blood Count 14.5 H Red Blood Count 4.13 L Hemoglobin 13.4 Hematocrit 39.0 Mean Corpuscular Volume 94.4 Mean Corpuscular Hemoglobin 32.4 Mean Corpuscular Hemoglobin Concent 34.4 Red Cell Distribution Width 12.6 Platelet Count 132 L Mean Platelet Volume 9.6 Neutrophils % 90.9 H Lymphocytes % 4.1 L Monocytes % 4.2 Eosinophils % 0.0 Basophils % 0.2 Nucleated Red Blood Cells % 0.0 Neutrophils # (Manual) 13 H Lymphocytes # 0.6 L Monocytes # 0.6 Eosinophils # 0.0 Basophils # 0.0 Nucleated Red Blood Cells # 0.0 Prothrombin Time 13.5 Prothrombin Time Ratio 1.1 INR International Normalized Ratio 1.03 Activated Partial Thromboplast Time 23.3 L Fibrinogen 170.0 L Sodium Level 142 Potassium Level 3.5 Chloride Level 112 H Carbon Dioxide Level 19 L Anion Gap 15 Blood Urea Nitrogen 16 Creatinine 0.73 Glucose Level 178 Calcium Level 7.9 L Phosphorus Level 2.2 L Magnesium Level 1.6 L Troponin I 1.250 *H Amylase Level 179 H Lipase 26 Test 06/26/17 15:00 06/26/17 15:47 06/26/17 17:01 06/26/17 17:50 Blood Gas Specimen Source Blood arterial Arterial Blood Date Drawn 06/26/2017 3:10:05 PM Arterial Blood pH (Temp corrected) 7.352 Arterial Blood pCO2 (Temp correct) 26.4 L Arterial Blood pO2 (Temp corrected) 62.4 L Arterial Blood HCO3 14.9 L Arterial Blood Base Excess -10.1 L Arterial Blood Oxygen Saturation 95.1 Azeem Test ACCEPTAB Arterial Blood Gas Puncture Site Right Radial Arterial Blood Carboxyhemoglobin 0.3 Arterial Blood Methemoglobin 0.1 Blood Gas A-a O2 Differential 195.8 H Oxyhemoglobin Percent 94.7 Total Hemoglobin 14.5 Blood Gas Temperature 33.5 Blood Gas Respiration Rate 20.0 Blood Gas Actual Respiration Rate 20 Blood Gas Modality VENT - AC FiO2 40.0 Blood Gas Tidal Volume 500.0 Blood Gas Low PEEP Setting 5.0 Blood Gas Notified Whom CW Blood Gas Notified Time 06/26/2017 3:21:22 PM Bedside Glucose 187 142 White Blood Count 10.7 # Red Blood Count 3.76 L Hemoglobin 12.1 Hematocrit 35.3 L Mean Corpuscular Volume 93.9 Mean Corpuscular Hemoglobin 32.2 Mean Corpuscular Hemoglobin Concent 34.3 Red Cell Distribution Width 12.5 Platelet Count 115 L Mean Platelet Volume 9.5 Neutrophils % 88.6 H Lymphocytes % 7.7 L Monocytes % 3.0 Eosinophils % 0.0 Basophils % 0.1 Nucleated Red Blood Cells % 0.0 Neutrophils # (Manual) 9 H Lymphocytes # 0.8 Monocytes # 0.3 Eosinophils # 0.0 Basophils # 0.0 Nucleated Red Blood Cells # 0.0 Prothrombin Time 13.5 Prothrombin Time Ratio 1.1 INR International Normalized Ratio 1.03 Activated Partial Thromboplast Time 23.5 L Fibrinogen 239.0 # Sodium Level 140 Potassium Level 3.0 L Chloride Level 110 Carbon Dioxide Level 19 L Anion Gap 14 Blood Urea Nitrogen 15 Creatinine 0.66 Glucose Level 134 # Calcium Level 7.6 L Phosphorus Level 2.0 L Magnesium Level 2.1 Troponin I 1.430 *H Amylase Level 170 H Lipase 16 L Test 06/26/17 18:21 06/26/17 20:23 06/26/17 21:00 06/26/17 21:50 Bedside Glucose 135 111 112 Blood Gas Specimen Source Blood arterial Arterial Blood Date Drawn 06/26/2017 8:55:40 PM Arterial Blood pH (Temp corrected) 7.483 H Arterial Blood pCO2 (Temp correct) 24.2 L Arterial Blood pO2 (Temp corrected) 71.5 L Arterial Blood HCO3 18.5 L Arterial Blood Base Excess -4.7 L Arterial Blood Oxygen Saturation 97.2 Azeem Test ACCEPTAB Arterial Blood Gas Puncture Site Right Radial Arterial Blood Carboxyhemoglobin 0.3 Arterial Blood Methemoglobin 0.1 Blood Gas A-a O2 Differential 263.0 H Oxyhemoglobin Percent 96.8 Total Hemoglobin 13.3 Blood Gas Temperature 32.6 Blood Gas Respiration Rate 20.0 Blood Gas Actual Respiration Rate 20 Blood Gas Modality VENT - AC FiO2 50.0 Blood Gas Tidal Volume 500.0 Blood Gas Mean Airway Pressure 11 Blood Gas Low PEEP Setting 5.0 Blood Gas Inspiratory Pressure 23.0 Blood Gas Notified Whom Wilmer[facility]aribelROX [facility] Blood Gas Notified Time 06/26/2017 9:05:34 PM Test 06/26/17 23:29 06/26/17 23:30 06/27/17 02:00 06/27/17 03:01 Bedside Glucose 134 107 White Blood Count 15.2 #H Red Blood Count 3.84 L Hemoglobin 12.5 Hematocrit 35.1 L Mean Corpuscular Volume 91.4 Mean Corpuscular Hemoglobin 32.6 Mean Corpuscular Hemoglobin Concent 35.6 Red Cell Distribution Width 12.5 Platelet Count 127 L Mean Platelet Volume 10.3 Neutrophils % 89.7 H Lymphocytes % 5.7 L Monocytes % 3.7 Eosinophils % 0.1 Basophils % 0.1 Nucleated Red Blood Cells % 0.0 Neutrophils # (Manual) 14 H Lymphocytes # 0.9 Monocytes # 0.6 Eosinophils # 0.0 Basophils # 0.0 Nucleated Red Blood Cells # 0.0 Prothrombin Time 12.7 Prothrombin Time Ratio 1.0 INR International Normalized Ratio 0.95 Activated Partial Thromboplast Time 24.0 L Fibrinogen 357.0 # Sodium Level 142 Potassium Level 3.1 L Chloride Level 104 Carbon Dioxide Level 23 Anion Gap 18 H Blood Urea Nitrogen 15 Creatinine 0.53 Glucose Level 127 Calcium Level 7.7 L Phosphorus Level 2.7 Magnesium Level 1.7 Troponin I 1.570 *H Amylase Level 157 H Lipase 13 L Blood Gas Specimen Source Blood arterial Arterial Blood Date Drawn 06/27/2017 2:46:25 AM Arterial Blood pH (Temp corrected) 7.518 H Arterial Blood pCO2 (Temp correct) 20.4 L Arterial Blood pO2 (Temp corrected) 114.5 H Arterial Blood HCO3 17.0 L Arterial Blood Base Excess -5.6 L Arterial Blood Oxygen Saturation 98.5 H Azeem Test ACCEPTAB Arterial Blood Gas Puncture Site Right Radial Arterial Blood Carboxyhemoglobin 0.3 Arterial Blood Methemoglobin 0.1 Blood Gas A-a O2 Differential 224.7 H Oxyhemoglobin Percent 98.1 Total Hemoglobin 12.3 Blood Gas Temperature 32.0 Blood Gas Respiration Rate 20.0 Blood Gas Actual Respiration Rate 20 Blood Gas Modality VENT - AC FiO2 50.0 Blood Gas Tidal Volume 500.0 Blood Gas Mean Airway Pressure 11 Blood Gas Low PEEP Setting 5.0 Blood Gas Inspiratory Pressure 25.0 Blood Gas Notified Whom [email or web address] [facility] Blood Gas Notified Time 06/27/2017 2:58:17 AM Test 06/27/17 04:02 06/27/17 05:10 06/27/17 06:14 06/27/17 07:51 Bedside Glucose 121 136 168 White Blood Count 15.6 H Red Blood Count 3.69 L Hemoglobin 11.5 L Hematocrit 33.0 L Mean Corpuscular Volume 89.4 Mean Corpuscular Hemoglobin 31.2 Mean Corpuscular Hemoglobin Concent 34.8 Red Cell Distribution Width 12.3 Platelet Count 121 L Mean Platelet Volume 10.2 Neutrophils % 88.9 H Lymphocytes % 6.4 L Monocytes % 4.0 Eosinophils % 0.0 Basophils % 0.1 Nucleated Red Blood Cells % 0.0 Neutrophils # (Manual) 14 H Lymphocytes # 1.0 Monocytes # 0.6 Eosinophils # 0.0 Basophils # 0.0 Nucleated Red Blood Cells # 0.0 Prothrombin Time 13.3 Prothrombin Time Ratio 1.0 INR International Normalized Ratio 1.01 Activated Partial Thromboplast Time 25.5 Fibrinogen 290.0 # Sodium Level 140 Potassium Level 2.8 *L Chloride Level 103 Carbon Dioxide Level 23 Anion Gap 17 H Blood Urea Nitrogen 11 Creatinine 0.46 Glucose Level 130 Hemoglobin A1c 5.3 Calcium Level 7.2 L Phosphorus Level 2.7 Magnesium Level 1.5 L Troponin I 1.660 *H Amylase Level 125 H Lipase 15 L Medications Medications Current Medications Ondansetron HCl (Zofran Inj) 4 mg Q6H PRN IV NAUSEA AND/OR VOMITING; Start at 21:30 Acetaminophen (Tylenol Supp) 650 mg Q4H PRN PA PAIN LEVEL 1-3 OR FEVER; Start 06/25/17 at 21:30 Lorazepam (Ativan) 1 mg Q2H PRN IV ANXIETY Last administered on 06/25/17 22:02 ; Admin Dose 1 MG; Start 06/25/17 at 21:30 Diagnostic Test (Pha) (Accu-Chek) 1 ea Q1H XX Last administered on 06/27/17 08 :00; Admin Dose 1 EA; Start 06/25/17 at 21:30 Dextrose (D50w Syringe) 25 ml Q15M PRN IV Till BS 80 mg/dL or above x2; Start 06/25/17 at 21:30 Dextrose (D50w Syringe) 50 ml Q15M PRN IV Till BS 80 mg/dL or above x2; Start 06/25/17 at 21:30 Meperidine HCl (Demerol) 12.5 mg Q4H PRN IV POST OPERATIVE SHIVERING; Start at 21:30 Meperidine HCl (Demerol) 25 mg Q4H PRN IV POST OPERATIVE SHIVERING; Start 06/25 at 21:30 Eye Lubricant (Akwa Oint) 1 applic Q6 BOTH EYES Last administered on 06/27/17 06:10; Admin Dose 1 APPLIC; Start 06/26/17 at 00:00 Eye Lubricant 2 drop 2 drop Q6 BOTH EYES Last administered on 06/27/17 06:10; Admin Dose 2 DROP; Start 06/26/17 at 00:00 Cefepime HCl 50 ml @ 100 mls/hr Q12 IVPB Last administered on 06/27/17 09:08 ; Admin Dose 100 MLS/HR; Start 06/26/17 at 09:00 Vancomycin HCl 250 ml @ 125 mls/hr Q12H IVPB Last administered on 06/27/17 03 :58; Admin Dose 125 MLS/HR; Start 06/26/17 at 15:00 Norepinephrine/ Dextrose (Levophed/D5W) 500 ml @ 1.87 mls/hr TITRATE IV ; Start 06/26/17 at 10:30 Miscellaneous Information VANCOMYCIN TROUGH AT 1400 ONCE ONCE XX ; Start 06/27/17 at 14:00; Stop 06/27/17 at 14:01 Sodium Bicarbonate/ Dextrose (Na Bicarb/D5W) 1,000 ml @ 75 mls/hr [id number] IV Last administered on 06/27/17 01:03; Admin Dose 75 MLS/HR; Start 06/26/17 at 11 :30 Famotidine (Pepcid Iv) 20 mg Q12H IV Last administered on 06/27/17 09:08; Admin Dose 20 MG; Start 06/26/17 at 21:00 Labetalol HCl (Labetalol) 10 mg Q2 PRN IV SBP GREATER THAN 160 Last administered on 06/26/17 15:24; Admin Dose 10 MG; Start 06/26/17 at 15:00 Acetaminophen 500 mg 500 mg Q6 NGT Last administered on 06/27/17t 06:10; Admin Dose 500 MG; Start 06/27/17 at 02:00; Stop 06/28/17 at 01:59 Vecuronium [place]/Dextrose (Norcuron/D5W) 100 ml @ 4.762 mls/ hr TITRATE IV ; Start 06/27/17 at 08:00 KATEY ROWE Jun 27, 2017 09:24
[2017-06-27 09:27] LABS: Allen Test ACCEPTAB; Arterial Base Excess -3.6 mmol/L (-3.0-3); Arterial COHb 0.3 % (0.0-3.0); Arterial Fraction of Oxyhgb 96.2 % (93.0-99.0); Arterial HCO3 19.1 mmol/L (22.0-26.0); Arterial MetHb 0.2 % (0.0-1.5); Arterial Total Hemglobin 12.7 g/dl (12.0-18.0); MODE VENT - AC
--- NOTE | 2017-06-27 10:02 | RADRPT ---
PROCEDURE: XR Chest. CLINICAL INDICATION: Follow-up TECHNIQUE: AP Portable chest. COMPARISON: 06/25/2017 FINDINGS: Defibrillator pad overlies the left chest. Interval placement of a nasogastric tube with the tip in the stomach. The endotracheal tube is in satisfactory position. The cardiomediastinal silhouette is normal.The aortic arch is calcified. Bilateral interstitial dens ities and small pleural effusions are visualized, increased in the right lower lobe. The left hemid iaphragm is obscured. No pneumothorax is seen. The osseous structures are intact. IMPRESSION: Interval placement of an NG tube with the tip in the stomach. ET tube in satisfactory position. Bilateral interstitial infiltrates or edema. Small bilateral pleural effusions. Physician Ramirez Date Time Electronically viewed and signed by Physician Ramirez on 06/27/2017 10:02 CS/
[2017-06-27] MEDS: DIVALPROEX (EC) 500 MG TAB PO SCH ×2 (10:38→14:30)
[2017-06-27 12:10] LABS: HEMATOCRIT 34.2 % (37.0-47.0); HEMOGLOBIN 11.8 g/dl (12.0-16.0); MEAN CORPUSCULAR HEMOGLOBIN 31.6 pg (29.0-33.0); MEAN CORPUSCULAR HGB CONC 34.5 g/dl (32.0-37.0); MEAN CORPUSCULAR VOLUME 91.4 fl (82.0-101.0); MEAN PLATELET VOLUME 10.3 fl (7.4-10.4); PLATELET COUNT 122 10^3/UL (140-415); RED BLOOD COUNT 3.74 10^6/ul (4.20-5.40); RED CELL DISTRIBUTION WIDTH 12.8 % (11.5-14.5); WHITE BLOOD COUNT 19.7 10^3/ul (4.8-10.8)
[2017-06-27 12:22] LABS: POSITIVE DIFF @See below
[2017-06-27 12:32] LABS: CREATININE 0.53 mg/dl (0.44-1.00); MAGNESIUM 1.5 mg/dl (1.7-2.5); PHOSPHORUS 3.6 mg/dl (2.5-4.9); PROTIME 13.2 Sec (12.2-14.2)
[2017-06-27 12:33] LABS: PARTIAL THROMBOPLASTIN TIME 23.4 Sec (25.0-35.0)
[2017-06-27 12:52] LABS: ANISOCYTOSIS 1+ (0-0); MICROCYTOSIS 1+ (0-0); MONOCYTES % (M) 3 % (0-11); POIKILOCYTOSIS 1+ (0-0); POLYCHROMASIA 3+ (0-0)
[2017-06-27 12:53] LABS: TROPONIN-I 1.59 ng/ml (0.00-0.12)
--- NOTE | 2017-06-27 13:45 | RADRPT ---
Vent Rate: 82 bpm RR Interval: 0 msec DE Interval: 142 msec QRS Duration: 86 msec QT Interval: 492 msec QTC Interval: 574 msec P-R-T [place]: 61 - 46 - 94 degrees Normal sinus rhythm Nonspecific T wave abnormality Prolonged QT Abnormal ECG Electronically Signed By: Leif Obrien [id number]
--- NOTE | 2017-06-27 13:47 | RADRPT ---
Vent Rate: 97 bpm RR Interval: 0 msec MO Interval: 144 msec QRS Duration: 72 msec QT Interval: 380 msec QTC Interval: 482 msec P-R-T [place]: -22 - 18 - 89 degrees Normal sinus rhythm Anterolateral TW inversions, consider ischemia Abnormal ECG Electronically Signed By: Leif Obrien [id number]
[2017-06-27] MEDS: DEXTROSE 5%-0.9% NACL 1,000 ML IV SCH (14:02)
[2017-06-27 17:24] LABS: HEMATOCRIT 31.8 % (37.0-47.0); HEMOGLOBIN 11.2 g/dl (12.0-16.0); MEAN CORPUSCULAR HEMOGLOBIN 32.5 pg (29.0-33.0); MEAN CORPUSCULAR HGB CONC 35.2 g/dl (32.0-37.0); MEAN CORPUSCULAR VOLUME 92.2 fl (82.0-101.0); MEAN PLATELET VOLUME 9.6 fl (7.4-10.4); PLATELET COUNT 127 10^3/UL (140-415); RED BLOOD COUNT 3.45 10^6/ul (4.20-5.40); RED CELL DISTRIBUTION WIDTH 12.9 % (11.5-14.5); WHITE BLOOD COUNT 19.5 10^3/ul (4.8-10.8)
[2017-06-27 17:29] LABS: POSITIVE DIFF @See below
[2017-06-27 17:38] LABS: INR 1.07; PROTIME 13.9 Sec (12.2-14.2); PT RATIO 1.1
[2017-06-27 17:39] LABS: PARTIAL THROMBOPLASTIN TIME 22.6 Sec (25.0-35.0)
[2017-06-27 17:46] LABS: CALCIUM 6.5 mg/dl (8.4-10.2); CREATININE 0.59 mg/dl (0.44-1.00); MAGNESIUM 1.4 mg/dl (1.7-2.5); PHOSPHORUS 3.6 mg/dl (2.5-4.9); POTASSIUM 3.5 mmol/L (3.5-5.1)
[2017-06-27 17:54] LABS: LYMPHOCYTES # 2.3 10^3/ul (0.8-2.9); MONOCYTE # 1.4 10^3/ul (0.3-0.9); MONOCYTES % (M) 7 % (0-11); NEUTROPHIL # 13.3 10^3/ul (1.6-7.5)
[2017-06-27 17:57] LABS: TROPONIN-I 1.3 ng/ml (0.00-0.12)
--- NOTE | 2017-06-27 18:17 | PN ---
Date/Time of Note Date/Time of Note DATE: 06/27/17 TIME: 17:52 Assessment/Plan VTE Prophylaxis VTE Prophylaxis Intervention: SCD's Assessment/Plan Chief Complaint/Hosp Course 1. Status post V-fib cardiopulmonary arrest: 40 minutes of resuscitation before ROSC -Echo shows cardiomyopathy with an EF less than 25% -s/p hypothermia protocol -Broad-spectrum antibiotic -Continue vent support. Pressor support as needed -Cardiology and pulmonary consults obtained -Neurology consult obtained to evaluate for brain activity 2. Vent dependent respiratory failure secondary to above -Chest x-ray with extensive consolidation in the right lower lung, most likely aspiration -Continue vent support and antibiotics -Pulmonary to manage 3. Severe metabolic acidosis-resolved -s/p bicarb drip 4. Shock liver -Continue hemodynamic stability 5. Renal insufficiency-resolved 6. Anoxic encephalopathy -Neurology consultation obtained Prophylaxis: SCDs CODE STATUS: Full Problems: Subjective 24 Hr Interval Summary Subjective hx not possible: pt non-verbal Exam/Review of Systems Vital Signs Vitals Vital Signs Date Time Temp Pulse Resp B/P Pulse Ox O2 Delivery O2 Flow Rate FiO2 06/27/17 17:30 111 14 96 30 06/27/17 16:30 127/77 06/27/17 16:00 97.6 Mechanical Ventilator Intake and Output 06/26/17 06/26/17 06/27/17 15:00 23:00 07:00 Intake Total 982.32 ml 1072.76 ml 2023.43 ml Output Total 1110 ml 282 ml 787 ml Balance -127.68 ml 790.76 ml 1236.43 ml Exam Constitutional: non-verbal Head: normocephalic ENMT: intubated Respiratory: clear to auscultation Gastrointestinal: soft, No distended Musculoskeletal: nl extremities to inspection Results Result Diagram: 06/27/175 06/27/17 1715 Results 24 hrs Laboratory Tests Test 06/26/17 18:21 06/26/17 20:23 06/26/17 21:00 06/26/17 21:50 Bedside Glucose 135 111 112 Blood Gas Specimen Source Blood arterial Arterial Blood Date Drawn 06/26/2017 8:55:40 PM Arterial Blood pH (Temp corrected) 7.483 H Arterial Blood pCO2 (Temp correct) 24.2 L Arterial Blood pO2 (Temp corrected) 71.5 L Arterial Blood HCO3 18.5 L Arterial Blood Base Excess -4.7 L Arterial Blood Oxygen Saturation 97.2 Azeem Test ACCEPTAB Arterial Blood Gas Puncture Site Right Radial Arterial Blood Carboxyhemoglobin 0.3 Arterial Blood Methemoglobin 0.1 Blood Gas A-a O2 Differential 263.0 H Oxyhemoglobin Percent 96.8 Total Hemoglobin 13.3 Blood Gas Temperature 32.6 Blood Gas Respiration Rate 20.0 Blood Gas Actual Respiration Rate 20 Blood Gas Modality VENT - AC FiO2 50.0 Blood Gas Tidal Volume 500.0 Blood Gas Mean Airway Pressure 11 Blood Gas Low PEEP Setting 5.0 Blood Gas Inspiratory Pressure 23.0 Blood Gas Notified Whom TYRON POLE SHAVER Blood Gas Notified Time 06/26/2017 9:05:34 PM Test 06/26/17 23:29 06/26/17 23:30 06/27/17 02:00 06/27/17 03:01 Bedside Glucose 134 107 White Blood Count 15.2 #H Red Blood Count 3.84 L Hemoglobin 12.5 Hematocrit 35.1 L Mean Corpuscular Volume 91.4 Mean Corpuscular Hemoglobin 32.6 Mean Corpuscular Hemoglobin Concent 35.6 Red Cell Distribution Width 12.5 Platelet Count 127 L Mean Platelet Volume 10.3 Neutrophils % 89.7 H Lymphocytes % 5.7 L Monocytes % 3.7 Eosinophils % 0.1 Basophils % 0.1 Nucleated Red Blood Cells % 0.0 Neutrophils # (Manual) 14 H Lymphocytes # 0.9 Monocytes # 0.6 Eosinophils # 0.0 Basophils # 0.0 Nucleated Red Blood Cells # 0.0 Prothrombin Time 12.7 Prothrombin Time Ratio 1.0 INR International Normalized Ratio 0.95 Activated Partial Thromboplast Time 24.0 L Fibrinogen 357.0 # Sodium Level 142 Potassium Level 3.1 L Chloride Level 104 Carbon Dioxide Level 23 Anion Gap 18 H Blood Urea Nitrogen 15 Creatinine 0.53 Glucose Level 127 Calcium Level 7.7 L Phosphorus Level 2.7 Magnesium Level 1.7 Troponin I 1.570 *H Amylase Level 157 H Lipase 13 L Blood Gas Specimen Source Blood arterial Arterial Blood Date Drawn 06/27/2017 2:46:25 AM Arterial Blood pH (Temp corrected) 7.518 H Arterial Blood pCO2 (Temp correct) 20.4 L Arterial Blood pO2 (Temp corrected) 114.5 H Arterial Blood HCO3 17.0 L Arterial Blood Base Excess -5.6 L Arterial Blood Oxygen Saturation 98.5 H Azeem Test ACCEPTAB Arterial Blood Gas Puncture Site Right Radial Arterial Blood Carboxyhemoglobin 0.3 Arterial Blood Methemoglobin 0.1 Blood Gas A-a O2 Differential 224.7 H Oxyhemoglobin Percent 98.1 Total Hemoglobin 12.3 Blood Gas Temperature 32.0 Blood Gas Respiration Rate 20.0 Blood Gas Actual Respiration Rate 20 Blood Gas Modality VENT - AC FiO2 50.0 Blood Gas Tidal Volume 500.0 Blood Gas Mean Airway Pressure 11 Blood Gas Low PEEP Setting 5.0 Blood Gas Inspiratory Pressure 25.0 Blood Gas Notified Yassine ACKERMAN RCP Blood Gas Notified Time 06/27/2017 2:58:17 AM Test 06/27/17 04:02 06/27/17 05:10 06/27/17 06:14 06/27/17 07:51 Bedside Glucose 121 136 168 White Blood Count 15.6 H Red Blood Count 3.69 L Hemoglobin 11.5 L Hematocrit 33.0 L Mean Corpuscular Volume 89.4 Mean Corpuscular Hemoglobin 31.2 Mean Corpuscular Hemoglobin Concent 34.8 Red Cell Distribution Width 12.3 Platelet Count 121 L Mean Platelet Volume 10.2 Neutrophils % 88.9 H Lymphocytes % 6.4 L Monocytes % 4.0 Eosinophils % 0.0 Basophils % 0.1 Nucleated Red Blood Cells % 0.0 Neutrophils # (Manual) 14 H Lymphocytes # 1.0 Monocytes # 0.6 Eosinophils # 0.0 Basophils # 0.0 Nucleated Red Blood Cells # 0.0 Prothrombin Time 13.3 Prothrombin Time Ratio 1.0 INR International Normalized Ratio 1.01 Activated Partial Thromboplast Time 25.5 Fibrinogen 290.0 # Sodium Level 140 Potassium Level 2.8 *L Chloride Level 103 Carbon Dioxide Level 23 Anion Gap 17 H Blood Urea Nitrogen 11 Creatinine 0.46 Glucose Level 130 Hemoglobin A1c 5.3 Calcium Level 7.2 L Phosphorus Level 2.7 Magnesium Level 1.5 L Troponin I 1.660 *H Amylase Level 125 H Lipase 15 L Test 06/27/17 09:00 06/27/17 10:49 06/27/17 11:35 06/27/17 12:27 Blood Gas Specimen Source Blood arterial Arterial Blood Date Drawn 06/27/2017 9:05:25 AM Arterial Blood pH (Temp corrected) 7.487 H Arterial Blood pCO2 (Temp correct) 25.3 L Arterial Blood pO2 (Temp corrected) 76.3 L Arterial Blood HCO3 19.1 L Arterial Blood Base Excess -3.6 L Arterial Blood Oxygen Saturation 96.7 Azeem Test ACCEPTAB Arterial Blood Gas Puncture Site Right Radial Arterial Blood Carboxyhemoglobin 0.3 Arterial Blood Methemoglobin 0.2 Blood Gas A-a O2 Differential 182.0 H Oxyhemoglobin Percent 96.2 Total Hemoglobin 12.7 Blood Gas Temperature 34.7 Blood Gas Respiration Rate 20.0 Blood Gas Actual Respiration Rate 20 Blood Gas Modality VENT - AC FiO2 40.0 Blood Gas Tidal Volume 500.0 Blood Gas Low PEEP Setting 5.0 Blood Gas Notified Whom CW Blood Gas Notified Time 06/27/2017 9:26:41 AM Bedside Glucose 129 119 White Blood Count 19.7 #H Red Blood Count 3.74 L Hemoglobin 11.8 L Hematocrit 34.2 L Mean Corpuscular Volume 91.4 Mean Corpuscular Hemoglobin 31.6 Mean Corpuscular Hemoglobin Concent 34.5 Red Cell Distribution Width 12.8 Platelet Count 122 L Mean Platelet Volume 10.3 Neutrophils % Segmented Neutrophils % (Manual) 67 Band Neutrophils % (Manual) 20 H Lymphocytes % Lymphocytes % (Manual) 10 L Monocytes % Monocytes % (Manual) 3 Eosinophils % Basophils % Nucleated Red Blood Cells % 0.0 Neutrophils # (Manual) 14 H Band Neutrophils # 3.9 H Absolute Lymphocytes (Manual) 1.9 Lymphocytes # Monocytes # Absolute Monocytes (Manual) 0.5 Eosinophils # Basophils # Nucleated Red Blood Cells # Polychromasia 3+ Poikilocytosis 1+ Anisocytosis 1+ Microcytosis 1+ Prothrombin Time 13.2 Prothrombin Time Ratio 1.0 INR International Normalized Ratio 1.00 Activated Partial Thromboplast Time 23.4 L Fibrinogen 401.0 # Sodium Level 136 Potassium Level 3.0 L Chloride Level 102 Carbon Dioxide Level 23 Anion Gap 14 Blood Urea Nitrogen 10 Creatinine 0.53 Glucose Level 112 Calcium Level 7.0 L Phosphorus Level 3.6 Magnesium Level 1.5 L Troponin I 1.590 *H Amylase Level 104 Lipase 14 L Test 06/27/17 13:50 06/27/17 14:41 06/27/17 16:12 06/27/17 17:15 Vancomycin Level Trough 6.5 L Bedside Glucose 98 112 White Blood Count 19.5 H Red Blood Count 3.45 L Hemoglobin 11.2 L Hematocrit 31.8 L Mean Corpuscular Volume 92.2 Mean Corpuscular Hemoglobin 32.5 Mean Corpuscular Hemoglobin Concent 35.2 Red Cell Distribution Width 12.9 Platelet Count 127 L Mean Platelet Volume 9.6 Neutrophils % Lymphocytes % Monocytes % Eosinophils % Basophils % Nucleated Red Blood Cells % 0.0 Neutrophils # (Manual) 17 H Lymphocytes # Monocytes # Eosinophils # Basophils # Nucleated Red Blood Cells # Prothrombin Time 13.9 Prothrombin Time Ratio 1.1 INR International Normalized Ratio 1.07 Activated Partial Thromboplast Time 22.6 L Fibrinogen Pending Sodium Level 136 Potassium Level 3.5 Chloride Level 103 Carbon Dioxide Level 25 Anion Gap 12 Blood Urea Nitrogen 10 Creatinine 0.59 Glucose Level 119 Calcium Level 6.5 L Phosphorus Level 3.6 Magnesium Level 1.4 L Troponin I Pending Amylase Level 78 Lipase 11 L Medications Medications Current Medications Ondansetron HCl (Zofran Inj) 4 mg Q6H PRN IV NAUSEA AND/OR VOMITING; Start at 21:30 Acetaminophen (Tylenol Supp) 650 mg Q4H PRN [place] PAIN LEVEL 1-3 OR FEVER; Start 06/25/17 at 21:30 Lorazepam (Ativan) 1 mg Q2H PRN IV ANXIETY Last administered on 06/25/17 22:02 ; Admin Dose 1 MG; Start 06/25/17 at 21:30 Diagnostic Test (Pha) (Accu-Chek) 1 ea Q1H XX Last administered on 06/27/17 16 :00; Admin Dose 1 EA; Start 06/25/17 at 21:30 Dextrose (D50w Syringe) 25 ml Q15M PRN IV Till BS 80 mg/dL or above x2; Start 06/25/17 at 21:30 Dextrose (D50w Syringe) 50 ml Q15M PRN IV Till BS 80 mg/dL or above x2; Start 06/25/17 at 21:30 Meperidine HCl (Demerol) 12.5 mg Q4H PRN IV POST OPERATIVE SHIVERING; Start at 21:30 Meperidine HCl (Demerol) 25 mg Q4H PRN IV POST OPERATIVE SHIVERING; Start 06/25 at 21:30 Eye Lubricant (Akwa Oint) 1 applic Q6 BOTH EYES Last administered on 06/27/17 12:19; Admin Dose 1 APPLIC; Start 06/26/17 at 00:00 Eye Lubricant 2 drop 2 drop Q6 BOTH EYES Last administered on 06/27/17 12:18; Admin Dose 2 DROP; Start 06/26/17 at 00:00 Cefepime HCl 50 ml @ 100 mls/hr Q12 IVPB Last administered on 06/27/17 09:08 ; Admin Dose 100 MLS/HR; Start 06/26/17 at 09:00 Vancomycin HCl 250 ml @ 125 mls/hr Q12H IVPB Last administered on 06/27/17 15 :20; Admin Dose 125 MLS/HR; Start 06/26/17 at 15:00; Stop 06/27/17 at 19:00 Norepinephrine/ Dextrose (Levophed/D5W) 500 ml @ 1.87 mls/hr TITRATE IV ; Start 06/26/17 at 10:30 Famotidine (Pepcid Iv) 20 mg Q12H IV Last administered on 06/27/17 09:08; Admin Dose 20 MG; Start 06/26/17 at 21:00 Labetalol HCl (Labetalol) 10 mg Q2 PRN IV SBP GREATER THAN 160 Last administered on 06/26/17 15:24; Admin Dose 10 MG; Start 06/26/17 at 15:00 Acetaminophen 500 mg 500 mg Q6 NGT Last administered on 06/27/17 12:17; Admin Dose 500 MG; Start 06/27/17 at 02:00; Stop 06/28/17 at 01:59 Vecuronium [place]/Dextrose (Norcuron/D5W) 100 ml @ 4.762 mls/ hr TITRATE IV ; Start 06/27/17 at 08:00 Divalproex Sodium 500 mg 500 mg TID PO Last administered on 06/27/17 14:30; Admin Dose 500 MG; Start 06/27/17 at 10:00 Dextrose/Sodium Chloride 1,000 ml @ 75 mls/hr [id number] IV Last administered on 06/27/17 14:02; Admin Dose 75 MLS/HR; Start 06/27/17 at 13:00 Vancomycin HCl/ Sodium Chloride (Vancocin/NS) 250 ml @ 83.333 mls/ hr Q12H IVPB ; Start 06/28/17 at 00:00 HAYDEN LACEY Jun 27, 2017 18:02
[2017-06-27] MEDS ORDERED: MAGNESIUM SULFATE 4 GM/100 ML 100 ML IVPB ONE (19:30)
[2017-06-27] MEDS: LEVETIRACETAM 500 MG (PMX) 100 ML IVPB SCH (20:26)
[2017-06-27] MEDS ORDERED: SOD CHLORIDE 0.9% 500 ML IV ONE (20:30)
[2017-06-28] VITALS (92 sets, daily range): BP systolic 71–139; BP diastolic 44–87; PULSE 86–127; RESP 15–32
[2017-06-28] MEDS: ACCU-CHEK XX SCH ×7 (00:02→05:54)
[2017-06-28] MEDS: VANCOMYCIN 1.5 GM in SOD CHLORIDE 0.9% 250 ML IVPB SCH ×2 (01:19→12:00)
[2017-06-28] MEDS: DEXTROSE 5%-0.9% NACL 1,000 ML IV SCH ×3 (02:24→19:05)
[2017-06-28] MEDS: OCULAR LUBRICANT 3.5 GM OPH OINT BOTH EYES SCH ×3 (05:50→17:51)
[2017-06-28] MEDS: ARTIFICIAL TEARS 15 ML OPH BOTH EYES SCH ×3 (05:50→17:51)
[2017-06-28 06:01] LABS: ABNORMAL IP MESSAGE 1; HEMATOCRIT 30.2 % (37.0-47.0); HEMOGLOBIN 9.9 g/dl (12.0-16.0); MEAN CORPUSCULAR HEMOGLOBIN 32.5 pg (29.0-33.0); MEAN CORPUSCULAR HGB CONC 32.8 g/dl (32.0-37.0); MEAN PLATELET VOLUME 10.7 fl (7.4-10.4); PLATELET COUNT 77 10^3/UL (140-415); RED BLOOD COUNT 3.05 10^6/ul (4.20-5.40); RED CELL DISTRIBUTION WIDTH 13.3 % (11.5-14.5); WHITE BLOOD COUNT 16.2 10^3/ul (4.8-10.8)
[2017-06-28 06:13] LABS: POSITIVE DIFF @See below
[2017-06-28 06:22] LABS: CREATININE 0.67 mg/dl (0.44-1.00); MAGNESIUM 2.5 mg/dl (1.7-2.5); PHOSPHORUS 2.9 mg/dl (2.5-4.9); POTASSIUM 3.9 mmol/L (3.5-5.1)
--- NOTE | 2017-06-28 07:43 | CONS ---
Date/Time of Note Date/Time of Note DATE: 06/28/17 TIME: 07:38 Assessment/Plan Assessment/Plan Additional Assessment/Plan Status post V-fib cardiopulmonary arrest: 40 minutes of resuscitation before ROSC RLL Aspiration PNA Vent dependent respiratory failure secondary to above Shock Liver Anoxic encephalopathy Hypotension Severe Cardiomyopathy -s/p hyopthermia protocol -continue pressor support -no antiarrythmics necessar at this time -recheck echo in a few days -if patient recovers possible cath/AICD -no caridac meds for low EF due to hypotension -possible dobutamine if bp improves Consultation Date/Type/Reason Admit Date/Time Jun 25, 2017 at 21:12 Hx of Present Illness This is a 51-year-old female with no past medical history who was brought to the ER after cardiac arrest. Patient was doing water aerobic exercise when she collapsed. CPR was initiated by bystanders. When EMS arrived, she had agonal breathing and had very faint pulse. Shortly after however pulse was lost and was found to be in ventricular fibrillation. ROSC after about 40 minutes of resuscitation including shocks. When she arrived to the ER, she was unresponsive with dilated pupils. No gag or corneal reflex. Initially febrile with a temperature of 100.5. Labs shows creatinine 1.18, bicarb 12, glucose 369, AST 534, ALT 340. ABG on 100% FiO2 showed a pH of 6.9, PCO2 44, PO2 109 bicarb 9. Past Medical History Medical History: other (Unknown) Past Surgical History Past Surgical Hx: other (Unknown) Social History Alcohol Use: other (Unknown) Smoking Status: Unknown if ever smoked Drug Use: other (Unknown) Exam/Review of Systems Vital Signs Vitals Vital Signs Date Time Temp Pulse Resp B/P Pulse Ox O2 Delivery O2 Flow Rate FiO2 06/28/17 06:45 91 15 104/63 100 Mechanical Ventilator 06/28/17 05:00 30 06/28/17 04:00 99.3 Intake and Output 06/27/17 06/27/17 06/28/17 15:00 23:00 07:00 Intake Total 490.34 ml 770.62 ml 981.75 ml Output Total 329 ml 247 ml 346 ml Balance 161.34 ml 523.62 ml 635.75 ml Results Result Diagram: 06/28/17 0500 06/28/17 0500 Results 24 hrs Laboratory Tests Test 06/27/17 07:51 06/27/17 09:00 06/27/17 10:49 06/27/17 11:35 Bedside Glucose 168 129 Blood Gas Specimen Source Blood arterial Arterial Blood Date Drawn 06/27/2017 9:05:25 AM Arterial Blood pH (Temp corrected) 7.487 H Arterial Blood pCO2 (Temp correct) 25.3 L Arterial Blood pO2 (Temp corrected) 76.3 L Arterial Blood HCO3 19.1 L Arterial Blood Base Excess -3.6 L Arterial Blood Oxygen Saturation 96.7 Azeem Test ACCEPTAB Arterial Blood Gas Puncture Site Right Radial Arterial Blood Carboxyhemoglobin 0.3 Arterial Blood Methemoglobin 0.2 Blood Gas A-a O2 Differential 182.0 H Oxyhemoglobin Percent 96.2 Total Hemoglobin 12.7 Blood Gas Temperature 34.7 Blood Gas Respiration Rate 20.0 Blood Gas Actual Respiration Rate 20 Blood Gas Modality VENT - AC FiO2 40.0 Blood Gas Tidal Volume 500.0 Blood Gas Low PEEP Setting 5.0 Blood Gas Notified Whom CW Blood Gas Notified Time 06/27/2017 9:26:41 AM White Blood Count 19.7 #H Red Blood Count 3.74 L Hemoglobin 11.8 L Hematocrit 34.2 L Mean Corpuscular Volume 91.4 Mean Corpuscular Hemoglobin 31.6 Mean Corpuscular Hemoglobin Concent 34.5 Red Cell Distribution Width 12.8 Platelet Count 122 L Mean Platelet Volume 10.3 Neutrophils % Segmented Neutrophils % (Manual) 67 Band Neutrophils % (Manual) 20 H Lymphocytes % Lymphocytes % (Manual) 10 L Monocytes % Monocytes % (Manual) 3 Eosinophils % Basophils % Nucleated Red Blood Cells % 0.0 Neutrophils # (Manual) 14 H Band Neutrophils # 3.9 H Absolute Lymphocytes (Manual) 1.9 Lymphocytes # Monocytes # Absolute Monocytes (Manual) 0.5 Eosinophils # Basophils # Nucleated Red Blood Cells # Polychromasia 3+ Poikilocytosis 1+ Anisocytosis 1+ Microcytosis 1+ Prothrombin Time 13.2 Prothrombin Time Ratio 1.0 INR International Normalized Ratio 1.00 Activated Partial Thromboplast Time 23.4 L Fibrinogen 401.0 # Sodium Level 136 Potassium Level 3.0 L Chloride Level 102 Carbon Dioxide Level 23 Anion Gap 14 Blood Urea Nitrogen 10 Creatinine 0.53 Glucose Level 112 Calcium Level 7.0 L Phosphorus Level 3.6 Magnesium Level 1.5 L Troponin I 1.590 *H Amylase Level 104 Lipase 14 L Test 06/27/17 12:27 06/27/17 13:50 06/27/17 14:41 06/27/17 16:12 Bedside Glucose 119 98 112 Vancomycin Level Trough 6.5 L Test 06/27/17 17:15 06/27/17 18:14 06/27/17 20:13 06/27/17 21:07 White Blood Count 19.5 H Red Blood Count 3.45 L Hemoglobin 11.2 L Hematocrit 31.8 L Mean Corpuscular Volume 92.2 Mean Corpuscular Hemoglobin 32.5 Mean Corpuscular Hemoglobin Concent 35.2 Red Cell Distribution Width 12.9 Platelet Count 127 L Mean Platelet Volume 9.6 Neutrophils % Segmented Neutrophils % (Manual) 68 Band Neutrophils % (Manual) 13 H Lymphocytes % Lymphocytes % (Manual) 12 L Monocytes % Monocytes % (Manual) 7 Eosinophils % Basophils % Nucleated Red Blood Cells % 0.0 Neutrophils # 13.3 H Neutrophils # (Manual) 14 H Band Neutrophils # 2.5 H Absolute Lymphocytes (Manual) 2.3 Lymphocytes # 2.3 Monocytes # 1.4 H Absolute Monocytes (Manual) 1.3 H Eosinophils # Basophils # Nucleated Red Blood Cells # Prothrombin Time 13.9 Prothrombin Time Ratio 1.1 INR International Normalized Ratio 1.07 Activated Partial Thromboplast Time 22.6 L Fibrinogen 442.0 # Sodium Level 136 Potassium Level 3.5 Chloride Level 103 Carbon Dioxide Level 25 Anion Gap 12 Blood Urea Nitrogen 10 Creatinine 0.59 Glucose Level 119 Calcium Level 6.5 L Phosphorus Level 3.6 Magnesium Level 1.4 L Troponin I 1.300 *H Amylase Level 78 Lipase 11 L Bedside Glucose 112 105 90 Test 06/27/17 22:19 06/27/17 23:09 06/28/17 00:00 06/28/17 01:11 Bedside Glucose 94 89 85 106 Test 06/28/17 02:14 06/28/17 04:33 06/28/17 05:00 Bedside Glucose 89 100 White Blood Count 16.2 H Red Blood Count 3.05 L Hemoglobin 9.9 L Hematocrit 30.2 L Mean Corpuscular Volume 99.0 Mean Corpuscular Hemoglobin 32.5 Mean Corpuscular Hemoglobin Concent 32.8 Red Cell Distribution Width 13.3 Platelet Count 77 #L Mean Platelet Volume 10.7 H Neutrophils % Lymphocytes % Monocytes % Eosinophils % Basophils % Nucleated Red Blood Cells % 0.0 Neutrophils # (Manual) 13 H Lymphocytes # Monocytes # Eosinophils # Basophils # Nucleated Red Blood Cells # Sodium Level 138 Potassium Level 3.9 Chloride Level 105 Carbon Dioxide Level 20 L Anion Gap 17 H Blood Urea Nitrogen 10 Creatinine 0.67 Glucose Level 82 Calcium Level 7.0 L Phosphorus Level 2.9 Magnesium Level 2.5 # Medications Medications Current Medications Ondansetron HCl (Zofran Inj) 4 mg Q6H PRN IV NAUSEA AND/OR VOMITING; Start at 21:30 Acetaminophen (Tylenol Supp) 650 mg Q4H PRN [place] PAIN LEVEL 1-3 OR FEVER; Start 06/25/17 at 21:30 Lorazepam (Ativan) 1 mg Q2H PRN IV ANXIETY Last administered on 06/25/17 22:02 ; Admin Dose 1 MG; Start 06/25/17 at 21:30 Diagnostic Test (Pha) (Accu-Chek) 1 ea Q1H XX Last administered on 06/28/17 04 :30; Admin Dose 1 EA; Start 06/25/17 at 21:30 Dextrose (D50w Syringe) 25 ml Q15M PRN IV Till BS 80 mg/dL or above x2; Start 06/25/17 at 21:30 Dextrose (D50w Syringe) 50 ml Q15M PRN IV Till BS 80 mg/dL or above x2; Start 06/25/17 at 21:30 Meperidine HCl (Demerol) 12.5 mg Q4H PRN IV POST OPERATIVE SHIVERING; Start at 21:30 Meperidine HCl (Demerol) 25 mg Q4H PRN IV POST OPERATIVE SHIVERING; Start 06/25 at 21:30 Eye Lubricant (Akwa Oint) 1 applic Q6 BOTH EYES Last administered on 06/28/17 05:50; Admin Dose 1 APPLIC; Start 06/26/17 at 00:00 Eye Lubricant 2 drop 2 drop Q6 BOTH EYES Last administered on 06/28/17 05:50; Admin Dose 2 DROP; Start 06/26/17 at 00:00 Cefepime HCl 50 ml @ 100 mls/hr Q12 IVPB Last administered on 06/27/17 21:13 ; Admin Dose 100 MLS/HR; Start 06/26/17 at 09:00 Norepinephrine/ Dextrose (Levophed/D5W) 500 ml @ 1.87 mls/hr TITRATE IV Last administered on 06/28/17 00:51; Admin Dose 3.75 MLS/HR; Start 06/26/17 at 10:30 Famotidine (Pepcid Iv) 20 mg Q12H IV Last administered on 06/27/17 21:08; Admin Dose 20 MG; Start 06/26/17 at 21:00 Labetalol HCl 10 mg 10 mg Q2 PRN IV SBP GREATER THAN 160 Last administered on 15:24; Admin Dose 10 MG; Start 06/26/17 at 15:00 Vecuronium [place] 100 mg/ Dextrose 100 ml @ 4.762 mls/ hr TITRATE IV ; Start 06/27/17 at 08:00 Dextrose/Sodium Chloride 1,000 ml @ 75 mls/hr [id number] IV Last administered on 06/28/17 02:24; Admin Dose 75 MLS/HR; Start 06/27/17 at 13:00 Vancomycin HCl 1.5 gm/Sodium Chloride 250 ml @ 83.333 mls/ hr Q12H IVPB Last administered on 06/28/17 01:19; Admin Dose 83.333 MLS/HR; Start 06/28/17 at 00: 00 Levetiracetam (Keppra 500 Mg/ 100ml (Pmx)) 100 ml @ 400 mls/hr Q12 IVPB Last administered on 06/27/17 20:26; Admin Dose 400 MLS/HR; Start 06/27/17 at 21:00 JON EUCEDA MD Jun 28, 2017 07:43
[2017-06-28] MEDS: CEFEPIME 1GM/50 ML (PMX) 50 ML IVPB SCH ×2 (08:28→20:03)
[2017-06-28] MEDS: FAMOTIDINE 20 MG INJ IV SCH ×2 (08:28→20:02)
[2017-06-28] MEDS: LEVETIRACETAM 500 MG (PMX) 100 ML IVPB SCH ×2 (08:28→22:29)
--- NOTE | 2017-06-28 08:49 | RADRPT ---
PROCEDURE: Chest radiograph CLINICAL INDICATION: Respiratory failure. COMPARISON: Radiograph from 06/27/2017. TECHNIQUE: Single frontal chest radiograph. FINDINGS: The endotracheal tube terminates about 3 cm above the walker. The enteric tube terminates in the gastric body. The left diaphragm and costophrenic sulcus are obscured, which may be due to a combination of atelec tasis, pneumonia, or effusion. Veiled opacification of the left mid and lower lung, consistent with pleural effusion. The cardiomediastinal silhouette is normal. No suspicious bone lesion. IMPRESSION: 1. All support lines and tubes in appropriate position. 2. Moderate left pleural effusion. This opacity could obscure a underlying atelectasis or a pneumo stephan. RPTAT: PP Physician Delia Date Time Electronically viewed and signed by Physician Delia on 06/28/2017 08:48 LG/
[2017-06-28 09:27] LABS: MONOCYTES % (M) 4 % (0-11); PLATELET ESTIMATE DECREASED
--- NOTE | 2017-06-28 10:11 | CONS ---
Date/Time of Note Date/Time of Note DATE: 06/28/17 TIME: 10:04 Assessment/Plan Assessment/Plan Chief Complaint/Hosp Course 66 yo female admitted with cardiac arrest with ROSC after 40 mins was in PEA and V fib s/p shock admitted to ICU with shock liver, respiratory failure, VPA added for myoclonus. Recommendations: continue seizure precautions may c/w VPA 500 mg q8h check free total/levels MRI Brain w/o contrast Routine EEG prognosis guarded at this time, will continue to follow Problems: Consultation Date/Type/Reason Admit Date/Time Jun 25, 2017 at 21:12 Date of Consultation: Jun 28, 2017 Type of Consultation: Neurology Reason for Consultation cardiac arrest s/p hypothermia Referring Provider: HAYDEN LACEY Hx of Present Illness 51 year old female with no known medical history, admitted 06/25 after she was doing water aerobic exercises and she collapsed CPR initiated by bystanders with PEA and V Fib, ROSC after 40 mins including shocks. On arrival to ED was unresponsive with dilated pupils absent gag and corneal treated with hypothermia protocol off sedation since 6 pm yesterday she remains intubated on bicarb drip with shock liver. Myoclonic jerking was observed Depakote 500 mg q8h has been initiated. Initial Head CT 06/25 shows no acute process. Subjective hx not possible: pt non-verbal, pt critical Past Medical History Medical History: other (Unknown) Past Surgical History Past Surgical Hx: other (Unknown) Social History Alcohol Use: other (Unknown) Smoking Status: Unknown if ever smoked Drug Use: other (Unknown) Exam/Review of Systems Vital Signs Vitals Vital Signs Date Time Temp Pulse Resp B/P Pulse Ox O2 Delivery O2 Flow Rate FiO2 06/28/17 09:00 95 18 100 30 06/28/17 06:45 104/63 Mechanical Ventilator 06/28/17 04:00 99.3 Intake and Output 06/27/17 06/27/17 06/28/17 15:00 23:00 07:00 Intake Total 490.34 ml 770.62 ml 981.75 ml Output Total 329 ml 247 ml 346 ml Balance 161.34 ml 523.62 ml 635.75 ml Exam intubated off any sedation unable to open her eyes to verbal stimuli CN: 5 mm non reactive, applied saline drops to check corneals, brisk bilaterally she maintains eye opening for a few minutes afterwards, no tracking limited/partial doll's Motor: no myoclonus noted, tone decreased throughout cold extremities absent withdrawal to noxious stimuli Reflexes absent UE and LE toes mute to babinski Results Result Diagram: 06/28/17 0500 06/28/17 0500 Results 24 hrs Laboratory Tests Test 06/27/17 10:49 06/27/17 11:35 06/27/17 12:27 06/27/17 13:50 Bedside Glucose 129 119 White Blood Count 19.7 #H Red Blood Count 3.74 L Hemoglobin 11.8 L Hematocrit 34.2 L Mean Corpuscular Volume 91.4 Mean Corpuscular Hemoglobin 31.6 Mean Corpuscular Hemoglobin Concent 34.5 Red Cell Distribution Width 12.8 Platelet Count 122 L Mean Platelet Volume 10.3 Neutrophils % Segmented Neutrophils % (Manual) 67 Band Neutrophils % (Manual) 20 H Lymphocytes % Lymphocytes % (Manual) 10 L Monocytes % Monocytes % (Manual) 3 Eosinophils % Basophils % Nucleated Red Blood Cells % 0.0 Neutrophils # (Manual) 14 H Band Neutrophils # 3.9 H Absolute Lymphocytes (Manual) 1.9 Lymphocytes # Monocytes # Absolute Monocytes (Manual) 0.5 Eosinophils # Basophils # Nucleated Red Blood Cells # Polychromasia 3+ Poikilocytosis 1+ Anisocytosis 1+ Microcytosis 1+ Prothrombin Time 13.2 Prothrombin Time Ratio 1.0 INR International Normalized Ratio 1.00 Activated Partial Thromboplast Time 23.4 L Fibrinogen 401.0 # Sodium Level 136 Potassium Level 3.0 L Chloride Level 102 Carbon Dioxide Level 23 Anion Gap 14 Blood Urea Nitrogen 10 Creatinine 0.53 Glucose Level 112 Calcium Level 7.0 L Phosphorus Level 3.6 Magnesium Level 1.5 L Troponin I 1.590 *H Amylase Level 104 Lipase 14 L Vancomycin Level Trough 6.5 L Test 06/27/17 14:41 06/27/17 16:12 06/27/17 17:15 06/27/17 18:14 Bedside Glucose 98 112 112 White Blood Count 19.5 H Red Blood Count 3.45 L Hemoglobin 11.2 L Hematocrit 31.8 L Mean Corpuscular Volume 92.2 Mean Corpuscular Hemoglobin 32.5 Mean Corpuscular Hemoglobin Concent 35.2 Red Cell Distribution Width 12.9 Platelet Count 127 L Mean Platelet Volume 9.6 Neutrophils % Segmented Neutrophils % (Manual) 68 Band Neutrophils % (Manual) 13 H Lymphocytes % Lymphocytes % (Manual) 12 L Monocytes % Monocytes % (Manual) 7 Eosinophils % Basophils % Nucleated Red Blood Cells % 0.0 Neutrophils # 13.3 H Neutrophils # (Manual) 14 H Band Neutrophils # 2.5 H Absolute Lymphocytes (Manual) 2.3 Lymphocytes # 2.3 Monocytes # 1.4 H Absolute Monocytes (Manual) 1.3 H Eosinophils # Basophils # Nucleated Red Blood Cells # Prothrombin Time 13.9 Prothrombin Time Ratio 1.1 INR International Normalized Ratio 1.07 Activated Partial Thromboplast Time 22.6 L Fibrinogen 442.0 # Sodium Level 136 Potassium Level 3.5 Chloride Level 103 Carbon Dioxide Level 25 Anion Gap 12 Blood Urea Nitrogen 10 Creatinine 0.59 Glucose Level 119 Calcium Level 6.5 L Phosphorus Level 3.6 Magnesium Level 1.4 L Troponin I 1.300 *H Amylase Level 78 Lipase 11 L Test 06/27/17 20:13 06/27/17 21:07 06/27/17 22:19 06/27/17 23:09 Bedside Glucose 105 90 94 89 Test 06/28/17 00:00 06/28/17 01:11 06/28/17 02:14 06/28/17 04:33 Bedside Glucose 85 106 89 100 Test 06/28/17 05:00 White Blood Count 16.2 H Red Blood Count 3.05 L Hemoglobin 9.9 L Hematocrit 30.2 L Mean Corpuscular Volume 99.0 Mean Corpuscular Hemoglobin 32.5 Mean Corpuscular Hemoglobin Concent 32.8 Red Cell Distribution Width 13.3 Platelet Count 77 #L Mean Platelet Volume 10.7 H Neutrophils % Segmented Neutrophils % (Manual) 77 Band Neutrophils % (Manual) 6 H Lymphocytes % Lymphocytes % (Manual) 13 L Monocytes % Monocytes % (Manual) 4 Eosinophils % Basophils % Nucleated Red Blood Cells % 0.0 Neutrophils # (Manual) 13 H Band Neutrophils # 0.9 H Absolute Lymphocytes (Manual) 2.1 Lymphocytes # Monocytes # Absolute Monocytes (Manual) 0.6 Eosinophils # Basophils # Nucleated Red Blood Cells # Platelet Estimate DECREASED Sodium Level 138 Potassium Level 3.9 Chloride Level 105 Carbon Dioxide Level 20 L Anion Gap 17 H Blood Urea Nitrogen 10 Creatinine 0.67 Glucose Level 82 Calcium Level 7.0 L Phosphorus Level 2.9 Magnesium Level 2.5 # Medications Medications Current Medications Ondansetron HCl (Zofran Inj) 4 mg Q6H PRN IV NAUSEA AND/OR VOMITING; Start at 21:30 Acetaminophen (Tylenol Supp) 650 mg Q4H PRN [place] PAIN LEVEL 1-3 OR FEVER; Start 06/25/17 at 21:30 Lorazepam (Ativan) 1 mg Q2H PRN IV ANXIETY Last administered on 06/25/17 22:02 ; Admin Dose 1 MG; Start 06/25/17 at 21:30 Diagnostic Test (Pha) (Accu-Chek) 1 ea Q1H XX Last administered on 06/28/17 04 :30; Admin Dose 1 EA; Start 06/25/17 at 21:30 Dextrose (D50w Syringe) 25 ml Q15M PRN IV Till BS 80 mg/dL or above x2; Start 06/25/17 at 21:30 Dextrose (D50w Syringe) 50 ml Q15M PRN IV Till BS 80 mg/dL or above x2; Start 06/25/17 at 21:30 Meperidine HCl (Demerol) 12.5 mg Q4H PRN IV POST OPERATIVE SHIVERING; Start at 21:30 Meperidine HCl (Demerol) 25 mg Q4H PRN IV POST OPERATIVE SHIVERING; Start 06/25 at 21:30 Eye Lubricant (Akwa Oint) 1 applic Q6 BOTH EYES Last administered on 06/28/17 05:50; Admin Dose 1 APPLIC; Start 06/26/17 at 00:00 Eye Lubricant 2 drop 2 drop Q6 BOTH EYES Last administered on 06/28/17 05:50; Admin Dose 2 DROP; Start 06/26/17 at 00:00 Cefepime HCl 50 ml @ 100 mls/hr Q12 IVPB Last administered on 06/28/17 08:28 ; Admin Dose 100 MLS/HR; Start 06/26/17 at 09:00 Norepinephrine/ Dextrose (Levophed/D5W) 500 ml @ 1.87 mls/hr TITRATE IV Last administered on 06/28/17 00:51; Admin Dose 3.75 MLS/HR; Start 06/26/17 at 10:30 Famotidine (Pepcid Iv) 20 mg Q12H IV Last administered on 06/28/17 08:28; Admin Dose 20 MG; Start 06/26/17 at 21:00 Labetalol HCl 10 mg 10 mg Q2 PRN IV SBP GREATER THAN 160 Last administered on 15:24; Admin Dose 10 MG; Start 06/26/17 at 15:00 Vecuronium [place] 100 mg/ Dextrose 100 ml @ 4.762 mls/ hr TITRATE IV ; Start 06/27/17 at 08:00 Dextrose/Sodium Chloride 1,000 ml @ 75 mls/hr [id number] IV Last administered on 06/28/17 02:24; Admin Dose 75 MLS/HR; Start 06/27/17 at 13:00 Vancomycin HCl 1.5 gm/Sodium Chloride 250 ml @ 83.333 mls/ hr Q12H IVPB Last administered on 06/28/17 01:19; Admin Dose 83.333 MLS/HR; Start 06/28/17 at 00: 00 Levetiracetam (Keppra 500 Mg/ 100ml (Pmx)) 100 ml @ 400 mls/hr Q12 IVPB Last administered on 06/28/17 08:28; Admin Dose 400 MLS/HR; Start 06/27/17 at 21:00 JESSICA HALL MD Jun 28, 2017 10:11
--- NOTE | 2017-06-28 10:48 | CONS ---
Date/Time of Note Date/Time of Note DATE: 06/28/17 TIME: 10:44 Assessment/Plan Assessment/Plan Additional Assessment/Plan Chest x-ray was reviewed from today which is showing a small left pleural effusion/atelectasis. Endotracheal tube is at an adequate level. Patient currently on assist control of 14, tidal volume 500, PEEP of 5, 30% FiO2. Levophed at 8 mics per minute. Assessment recommendations; 1. Patient admitted with cardiac arrest status post long CPR lasting 40 minutes. 2. Likely significant anoxic brain injury as exhibited by myoclonic jerking, currently well controlled with Depakote. 3. Hypotension now requiring Levophed for blood pressure administration. 4. Possibly some element of aspiration pneumonia currently on appropriate antibiotic regimen. Continue current supportive care. Outcome will depend upon adequate neurological recovery. I did have a very detailed discussion the patient's sister who is visiting from [place] as well as her [id number] at bedside and answered all their questions. Prognosis remains guarded. 35 minutes of critical care time was spent evaluating the patient. Consultation Date/Type/Reason Admit Date/Time Jun 25, 2017 at 21:12 Initial Consult Date 06/26/17 Type of Consultation: Pulmonary/critical care Referring Provider: HAYDEN LACEY 24 HR Interval Summary Free Text/Dictation Patient's condition remains critical. Has been off hypothermia protocol and exhibiting profound mental unresponsiveness. However no overt seizure activity noted. No further myoclonic jerking observed as well. General exam; elderly woman, orally intubated, unresponsive, currently in no distress. Exam/Review of Systems Vital Signs Vitals Vital Signs Date Time Temp Pulse Resp B/P Pulse Ox O2 Delivery O2 Flow Rate FiO2 06/28/17 09:00 95 18 100 30 06/28/17 06:45 104/63 Mechanical Ventilator 06/28/17 04:00 99.3 Intake and Output 06/27/17 06/27/17 06/28/17 15:00 23:00 07:00 Intake Total 490.34 ml 770.62 ml 981.75 ml Output Total 329 ml 247 ml 346 ml Balance 161.34 ml 523.62 ml 635.75 ml Exam HEENT exam; supple neck, no JVD. No lymphadenopathy. Midline trachea. No thyromegaly. Pupils are dilated and nonreactive to light. Patient has fair dentition. Orally intubated. Chest exam; diminished but clear breath sound. S1-S2 audible, no murmurs. Regular rhythm. Abdomen exam; soft, no organomegaly. Bowel sounds are audible. Extremity exam; no peripheral edema. Pulses 1+ bilaterally. [employer] exam; patient exhibits only minimal grimacing on deep sternal rubbing. Results Result Diagram: 06/28/17 0500 06/28/17 0500 Results 24 hrs Laboratory Tests Test 06/27/17 10:49 06/27/17 11:35 06/27/17 12:27 06/27/17 13:50 Bedside Glucose 129 119 White Blood Count 19.7 #H Red Blood Count 3.74 L Hemoglobin 11.8 L Hematocrit 34.2 L Mean Corpuscular Volume 91.4 Mean Corpuscular Hemoglobin 31.6 Mean Corpuscular Hemoglobin Concent 34.5 Red Cell Distribution Width 12.8 Platelet Count 122 L Mean Platelet Volume 10.3 Neutrophils % Segmented Neutrophils % (Manual) 67 Band Neutrophils % (Manual) 20 H Lymphocytes % Lymphocytes % (Manual) 10 L Monocytes % Monocytes % (Manual) 3 Eosinophils % Basophils % Nucleated Red Blood Cells % 0.0 Neutrophils # (Manual) 14 H Band Neutrophils # 3.9 H Absolute Lymphocytes (Manual) 1.9 Lymphocytes # Monocytes # Absolute Monocytes (Manual) 0.5 Eosinophils # Basophils # Nucleated Red Blood Cells # Polychromasia 3+ Poikilocytosis 1+ Anisocytosis 1+ Microcytosis 1+ Prothrombin Time 13.2 Prothrombin Time Ratio 1.0 INR International Normalized Ratio 1.00 Activated Partial Thromboplast Time 23.4 L Fibrinogen 401.0 # Sodium Level 136 Potassium Level 3.0 L Chloride Level 102 Carbon Dioxide Level 23 Anion Gap 14 Blood Urea Nitrogen 10 Creatinine 0.53 Glucose Level 112 Calcium Level 7.0 L Phosphorus Level 3.6 Magnesium Level 1.5 L Troponin I 1.590 *H Amylase Level 104 Lipase 14 L Vancomycin Level Trough 6.5 L Test 06/27/17 14:41 06/27/17 16:12 06/27/17 17:15 06/27/17 18:14 Bedside Glucose 98 112 112 White Blood Count 19.5 H Red Blood Count 3.45 L Hemoglobin 11.2 L Hematocrit 31.8 L Mean Corpuscular Volume 92.2 Mean Corpuscular Hemoglobin 32.5 Mean Corpuscular Hemoglobin Concent 35.2 Red Cell Distribution Width 12.9 Platelet Count 127 L Mean Platelet Volume 9.6 Neutrophils % Segmented Neutrophils % (Manual) 68 Band Neutrophils % (Manual) 13 H Lymphocytes % Lymphocytes % (Manual) 12 L Monocytes % Monocytes % (Manual) 7 Eosinophils % Basophils % Nucleated Red Blood Cells % 0.0 Neutrophils # 13.3 H Neutrophils # (Manual) 14 H Band Neutrophils # 2.5 H Absolute Lymphocytes (Manual) 2.3 Lymphocytes # 2.3 Monocytes # 1.4 H Absolute Monocytes (Manual) 1.3 H Eosinophils # Basophils # Nucleated Red Blood Cells # Prothrombin Time 13.9 Prothrombin Time Ratio 1.1 INR International Normalized Ratio 1.07 Activated Partial Thromboplast Time 22.6 L Fibrinogen 442.0 # Sodium Level 136 Potassium Level 3.5 Chloride Level 103 Carbon Dioxide Level 25 Anion Gap 12 Blood Urea Nitrogen 10 Creatinine 0.59 Glucose Level 119 Calcium Level 6.5 L Phosphorus Level 3.6 Magnesium Level 1.4 L Troponin I 1.300 *H Amylase Level 78 Lipase 11 L Test 06/27/17 20:13 06/27/17 21:07 06/27/17 22:19 06/27/17 23:09 Bedside Glucose 105 90 94 89 Test 06/28/17 00:00 06/28/17 01:11 06/28/17 02:14 06/28/17 04:33 Bedside Glucose 85 106 89 100 Test 06/28/17 05:00 White Blood Count 16.2 H Red Blood Count 3.05 L Hemoglobin 9.9 L Hematocrit 30.2 L Mean Corpuscular Volume 99.0 Mean Corpuscular Hemoglobin 32.5 Mean Corpuscular Hemoglobin Concent 32.8 Red Cell Distribution Width 13.3 Platelet Count 77 #L Mean Platelet Volume 10.7 H Neutrophils % Segmented Neutrophils % (Manual) 77 Band Neutrophils % (Manual) 6 H Lymphocytes % Lymphocytes % (Manual) 13 L Monocytes % Monocytes % (Manual) 4 Eosinophils % Basophils % Nucleated Red Blood Cells % 0.0 Neutrophils # (Manual) 13 H Band Neutrophils # 0.9 H Absolute Lymphocytes (Manual) 2.1 Lymphocytes # Monocytes # Absolute Monocytes (Manual) 0.6 Eosinophils # Basophils # Nucleated Red Blood Cells # Platelet Estimate DECREASED Sodium Level 138 Potassium Level 3.9 Chloride Level 105 Carbon Dioxide Level 20 L Anion Gap 17 H Blood Urea Nitrogen 10 Creatinine 0.67 Glucose Level 82 Calcium Level 7.0 L Phosphorus Level 2.9 Magnesium Level 2.5 # Medications Medications Current Medications Ondansetron HCl (Zofran Inj) 4 mg Q6H PRN IV NAUSEA AND/OR VOMITING; Start at 21:30 Acetaminophen (Tylenol Supp) 650 mg Q4H PRN [place] PAIN LEVEL 1-3 OR FEVER; Start 06/25/17 at 21:30 Lorazepam (Ativan) 1 mg Q2H PRN IV ANXIETY Last administered on 06/25/17 22:02 ; Admin Dose 1 MG; Start 06/25/17 at 21:30 Diagnostic Test (Pha) (Accu-Chek) 1 ea Q1H XX Last administered on 06/28/17 04 :30; Admin Dose 1 EA; Start 06/25/17 at 21:30 Dextrose (D50w Syringe) 25 ml Q15M PRN IV Till BS 80 mg/dL or above x2; Start 06/25/17 at 21:30 Dextrose (D50w Syringe) 50 ml Q15M PRN IV Till BS 80 mg/dL or above x2; Start 06/25/17 at 21:30 Meperidine HCl (Demerol) 12.5 mg Q4H PRN IV POST OPERATIVE SHIVERING; Start at 21:30 Meperidine HCl (Demerol) 25 mg Q4H PRN IV POST OPERATIVE SHIVERING; Start 06/25 at 21:30 Eye Lubricant (Akwa Oint) 1 applic Q6 BOTH EYES Last administered on 06/28/17 05:50; Admin Dose 1 APPLIC; Start 06/26/17 at 00:00 Eye Lubricant 2 drop 2 drop Q6 BOTH EYES Last administered on 06/28/17 05:50; Admin Dose 2 DROP; Start 06/26/17 at 00:00 Cefepime HCl 50 ml @ 100 mls/hr Q12 IVPB Last administered on 06/28/17 08:28 ; Admin Dose 100 MLS/HR; Start 06/26/17 at 09:00 Norepinephrine/ Dextrose (Levophed/D5W) 500 ml @ 1.87 mls/hr TITRATE IV Last administered on 06/28/17 00:51; Admin Dose 3.75 MLS/HR; Start 06/26/17 at 10:30 Famotidine (Pepcid Iv) 20 mg Q12H IV Last administered on 06/28/17 08:28; Admin Dose 20 MG; Start 06/26/17 at 21:00 Labetalol HCl 10 mg 10 mg Q2 PRN IV SBP GREATER THAN 160 Last administered on 15:24; Admin Dose 10 MG; Start 06/26/17 at 15:00 Vecuronium [place] 100 mg/ Dextrose 100 ml @ 4.762 mls/ hr TITRATE IV ; Start 06/27/17 at 08:00 Dextrose/Sodium Chloride 1,000 ml @ 75 mls/hr [id number] IV Last administered on 06/28/17 02:24; Admin Dose 75 MLS/HR; Start 06/27/17 at 13:00 Vancomycin HCl 1.5 gm/Sodium Chloride 250 ml @ 83.333 mls/ hr Q12H IVPB Last administered on 06/28/17 01:19; Admin Dose 83.333 MLS/HR; Start 06/28/17 at 00: 00 Levetiracetam (Keppra 500 Mg/ 100ml (Pmx)) 100 ml @ 400 mls/hr Q12 IVPB Last administered on 06/28/17 08:28; Admin Dose 400 MLS/HR; Start 06/27/17 at 21:00 KATEY ROWE Jun 28, 2017 10:48
--- NOTE | 2017-06-28 12:52 | RADRPT ---
Vent Rate: 71 bpm RR Interval: 0 msec ND Interval: 174 msec QRS Duration: 104 msec QT Interval: 484 msec QTC Interval: 525 msec P-R-T [place]: 77 - 20 - 72 degrees Sinus rhythm with occasional , and consecutive premature ventricular complexes Nonspecific ST abnormality Prolonged QT Abnormal ECG Electronically Signed By: Leif Obrien [id number]
--- NOTE | 2017-06-28 12:54 | RADRPT ---
Vent Rate: 74 bpm RR Interval: 0 msec CA Interval: 162 msec QRS Duration: 98 msec QT Interval: 416 msec QTC Interval: 461 msec P-R-T [place]: 73 - 58 - 87 degrees Normal sinus rhythm Nonspecific T wave abnormality Abnormal ECG Electronically Signed By: Leif Obrien [id number]
--- NOTE | 2017-06-28 16:15 | RADRPT ---
PROCEDURE: MR Brain without intravenous contrast CLINICAL INDICATION: Cardiac arrest and concern for hypoxic injury. COMPARISON: CT 06/25/2017. TECHNIQUE: Multiplanar multi-sequence images of the brain were obtained. Images acquired on a 3.0 T esla magnet. FINDINGS: Parenchyma: No acute hemorrhage or mass. Restricted diffusion within the para hippocampal gyri bilat erally (series 3, images 14-15). Ventricles: No ventricular enlargement or ventricular effacement. Extra-axial spaces: No herniation or midline shift. Orbits: Normal. Major intracranial flow voids: Preserved. Paranasal sinuses: Mild paranasal sinus mucosal thickening. Mastoids and middle ears: Bilateral mastoid effusions, larger on the right. Bones: Normal. Extracranial soft tissues: Normal. Additional comment: None. IMPRESSION: 1. 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 2. Bilateral mastoid effusions. Dr. Pat discussed findings with Bethanie Fisher RN, the ICU nurse responsible for this patient, via telephone at 06/28/2017 4:14:15 PM with read back confirmation. RPTAT: PP Physician Delia Date Time Electronically viewed and signed by Physician Delia on 06/28/2017 16:15 /
[2017-06-28] MEDS ORDERED: LIDOCAINE 1% (MPF) 5 ML VIAL SC ONE (16:30)
--- NOTE | 2017-06-28 18:17 | PN ---
Date/Time of Note Date/Time of Note DATE: 06/28/17 TIME: 18:09 Assessment/Plan VTE Prophylaxis VTE Prophylaxis Intervention: LMWH Lines/Catheters IV Catheter Type (from Nrsg): Central Line Central line still needed: Yes Urinary Cath still in place: Yes Reason Cath still needed: urinary retention Assessment/Plan Chief Complaint/Hosp Course 66 yo female who suffered VT arrest with ROSC, found to have systolic cardiomyopathy. S/p hypothermia protocol with poor neurologic status CV: Systolic cardiomyopathy, s/p VT arrest, s/p hypothremia protocol - Continue pressor as needed for BP support - ICD/cath if improved - BB/JESSIE if improved PULM Resipratoyr faiulre 2/2 cerebral ischemia: - contineu MV as needed NEURO: Watershed ischemic injury -Seizure ppx per neurology - MRI - serial neuro checks ID: [email or web address] PPx: HSQ, PPI Full Code Problems: Subjective 24 Hr Interval Summary Free Text/Dictation Completed hypothermia protocol yesterday 6 PM, all sedatives held as well Today, still on pressor, but BP is recovering Sister/brother in law at bedside, informed of very ill state and poor prognosis They are aware, considering GOC, full code at this time Exam/Review of Systems Vital Signs Vitals Vital Signs Date Time Temp Pulse Resp B/P Pulse Ox O2 Delivery O2 Flow Rate FiO2 06/28/17 17:11 103 22 99 30 06/28/17 16:15 110/67 Mechanical Ventilator 06/28/17 14:00 101.0 Intake and Output 06/27/17 06/27/17 06/28/17 14:59 22:59 06:59 Intake Total 493.84 ml 773.93 ml 967.25 ml Output Total 394 ml 240 ml 382 ml Balance 99.84 ml 533.93 ml 585.25 ml Exam Intubated spotnateonus breaths + Gag reflex Negative cranial nerves otherwise, fixed dilated pupils, no dolls eye or blink reflex No response to noxious stimuli throughout Results Result Diagram: 06/28/17 0500 06/28/17 0500 Results 24 hrs Laboratory Tests Test 06/27/17 18:14 06/27/17 20:13 06/27/17 21:07 06/27/17 22:19 Bedside Glucose 112 105 90 94 Test 06/27/17 23:09 06/28/17 00:00 06/28/17 01:11 06/28/17 02:14 Bedside Glucose 89 85 106 89 Test 06/28/17 04:33 06/28/17 05:00 Bedside Glucose 100 White Blood Count 16.2 H Red Blood Count 3.05 L Hemoglobin 9.9 L Hematocrit 30.2 L Mean Corpuscular Volume 99.0 Mean Corpuscular Hemoglobin 32.5 Mean Corpuscular Hemoglobin Concent 32.8 Red Cell Distribution Width 13.3 Platelet Count 77 #L Mean Platelet Volume 10.7 H Neutrophils % Segmented Neutrophils % (Manual) 77 Band Neutrophils % (Manual) 6 H Lymphocytes % Lymphocytes % (Manual) 13 L Monocytes % Monocytes % (Manual) 4 Eosinophils % Basophils % Nucleated Red Blood Cells % 0.0 Neutrophils # (Manual) 13 H Band Neutrophils # 0.9 H Absolute Lymphocytes (Manual) 2.1 Lymphocytes # Monocytes # Absolute Monocytes (Manual) 0.6 Eosinophils # Basophils # Nucleated Red Blood Cells # Platelet Estimate DECREASED Sodium Level 138 Potassium Level 3.9 Chloride Level 105 Carbon Dioxide Level 20 L Anion Gap 17 H Blood Urea Nitrogen 10 Creatinine 0.67 Glucose Level 82 Calcium Level 7.0 L Phosphorus Level 2.9 Magnesium Level 2.5 # Medications Medications Current Medications Ondansetron HCl (Zofran Inj) 4 mg Q6H PRN IV NAUSEA AND/OR VOMITING; Start at 21:30 Acetaminophen (Tylenol Supp) [address] PAIN LEVEL 1-3 OR FEVER; Start 06/25/17 at 21:30 Lorazepam (Ativan) 1 mg Q2H PRN IV ANXIETY Last administered on 06/25/17 22:02 ; Admin Dose 1 MG; Start 06/25/17 at 21:30 Meperidine HCl (Demerol) 12.5 mg Q4H PRN IV POST OPERATIVE SHIVERING; Start at 21:30 Meperidine HCl (Demerol) 25 mg Q4H PRN IV POST OPERATIVE SHIVERING; Start 06/25 at 21:30 Eye Lubricant (Akwa Oint) 1 applic Q6 BOTH EYES Last administered on 06/28/17 17:51; Admin Dose 1 APPLIC; Start 06/26/17 at 00:00 Eye Lubricant 2 drop 2 drop Q6 BOTH EYES Last administered on 06/28/17 17:51; Admin Dose 2 DROP; Start 06/26/17 at 00:00 Cefepime HCl 50 ml @ 100 mls/hr Q12 IVPB Last administered on 06/28/17 08:28 ; Admin Dose 100 MLS/HR; Start 06/26/17 at 09:00 Norepinephrine/ Dextrose (Levophed/D5W) 500 ml @ 1.87 mls/hr TITRATE IV Last administered on 06/28/17 00:51; Admin Dose 3.75 MLS/HR; Start 06/26/17 at 10:30 Famotidine (Pepcid Iv) 20 mg Q12H IV Last administered on 06/28/17 08:28; Admin Dose 20 MG; Start 06/26/17 at 21:00 Labetalol HCl 10 mg 10 mg Q2 PRN IV SBP GREATER THAN 160 Last administered on 15:24; Admin Dose 10 MG; Start 06/26/17 at 15:00 Vecuronium [place] 100 mg/ Dextrose 100 ml @ 4.762 mls/ hr TITRATE IV ; Start 06/27/17 at 08:00 Dextrose/Sodium Chloride 1,000 ml @ 75 mls/hr [id number] IV Last administered on 06/28/17 02:24; Admin Dose 75 MLS/HR; Start 06/27/17 at 13:00 Vancomycin HCl 1.5 gm/Sodium Chloride 250 ml @ 83.333 mls/ hr Q12H IVPB Last administered on 06/28/17 12:00; Admin Dose 83.333 MLS/HR; Start 06/28/17 at 00: 00 Levetiracetam (Keppra 500 Mg/ 100ml (Pmx)) 100 ml @ 400 mls/hr Q12 IVPB Last administered on 06/28/17 08:28; Admin Dose 400 MLS/HR; Start 06/27/17 at 21:00 Miscellaneous Information (*Rx Drug Level Order Reminder*) VANCOMYCIN TROUGH AT 1100 ONCE ONCE XX ; Start 06/29/17 at 11:00; Stop 06/29/17 at 11:01 JULY BOCANEGRA MD Jun 28, 2017 18:16
[2017-06-28] MEDS ORDERED: NACL 3% FOR INHALATION 15 ML NEBU NEB ONE (21:30)
[2017-06-28] MEDS ORDERED: ACETAMINOPHEN 1000MG/100ML IV 100 ML IVPB ONE (21:30)
[2017-06-29] VITALS (45 sets, daily range): BP systolic 118–156; BP diastolic 64–97; PULSE 88–131; RESP 16–28
[2017-06-29] MEDS: ARTIFICIAL TEARS 15 ML OPH BOTH EYES SCH ×5 (00:05→23:36)
[2017-06-29] MEDS: OCULAR LUBRICANT 3.5 GM OPH OINT BOTH EYES SCH ×5 (00:06→23:42)
[2017-06-29] MEDS: VANCOMYCIN 1.5 GM in SOD CHLORIDE 0.9% 250 ML IVPB SCH ×3 (00:08→23:37)
[2017-06-29] MEDS: DEXTROSE 5%-0.9% NACL 1,000 ML IV SCH (04:03)
[2017-06-29] MEDS: LEVETIRACETAM 500 MG (PMX) 100 ML IVPB SCH ×2 (08:08→22:07)
[2017-06-29] MEDS: CEFEPIME 1GM/50 ML (PMX) 50 ML IVPB SCH ×2 (08:08→20:42)
[2017-06-29] MEDS: FAMOTIDINE 20 MG INJ IV SCH ×2 (08:08→20:42)
--- NOTE | 2017-06-29 08:21 | PN ---
Date/Time of Note Date/Time of Note DATE: 06/29/17 TIME: 08:21 Assessment/Plan VTE Prophylaxis VTE Prophylaxis Intervention: SCD's Lines/Catheters IV Catheter Type (from Nrs): Central Line Central line still needed: No Urinary Cath still in place: Yes Reason Cath still needed: urinary retention Assessment/Plan Chief Complaint/Hosp Course This is a 51-year-old female with no past medical history who was brought to the ER after cardiac arrest. Patient was doing water aerobic exercise when she collapsed. CPR was initiated by bystanders. When EMS arrived, she had agonal breathing and had very faint pulse. Shortly after however pulse was lost and was found to be in ventricular fibrillation. ROSC after about 40 minutes of resuscitation including shocks. When she arrived to the ER, she was unresponsive with dilated pupils. No gag or corneal reflex. Initially febrile with a temperature of 100.5. Labs shows creatinine 1.18, bicarb 12, glucose 369, AST 534, ALT 340. ABG on 100% FiO2 showed a pH of 6.9, PCO2 44, PO2 109 bicarb 9. Problems: Assessment/Plan Status post V-fib cardiopulmonary arrest: 40 minutes of resuscitation before ROSC RLL Aspiration PNA Vent dependent respiratory failure secondary to above Shock Liver Anoxic encephalopathy Hypotension Severe Cardiomyopathy -s/p hyopthermia protocol -continue pressor support -no antiarrythmics necessary at this time -recheck echo in a few days -if patient recovers possible cath/AICD -no caridac meds for low EF due to hypotension -possible dobutamine if bp improves Subjective 24 Hr Interval Summary Free Text/Dictation The patient iwth no cahnge Exam/Review of Systems Vital Signs Vitals Vital Signs Date Time Temp Pulse Resp B/P Pulse Ox O2 Delivery O2 Flow Rate FiO2 06/29/17 08:00 101.5 06/29/17 06:00 109 20 139/75 97 Mechanical Ventilator 06/29/17 05:22 30 Intake and Output 06/28/17 06/28/17 06/29/17 15:00 23:00 07:00 Intake Total 922.50 ml 813.12 ml 675 ml Output Total 471 ml 358 ml 311 ml Balance 451.50 ml 455.12 ml 364 ml Results Result Diagram: 06/28/17 0500 06/28/17 0500 Medications Medications Current Medications Ondansetron HCl (Zofran Inj) 4 mg Q6H PRN IV NAUSEA AND/OR VOMITING; Start at 21:30 Acetaminophen (Tylenol Supp) 650 mg Q4H PRN [place] PAIN LEVEL 1-3 OR FEVER; Start 06/25/17 at 21:30 Lorazepam (Ativan) 1 mg Q2H PRN IV ANXIETY Last administered on 06/25/17 22:02 ; Admin Dose 1 MG; Start 06/25/17 at 21:30 Meperidine HCl (Demerol) 12.5 mg Q4H PRN IV POST OPERATIVE SHIVERING; Start at 21:30 Meperidine HCl (Demerol) 25 mg Q4H PRN IV POST OPERATIVE SHIVERING; Start 06/25 at 21:30 Eye Lubricant (Akwa Oint) 1 applic Q6 BOTH EYES Last administered on 06/29/17 05:33; Admin Dose 1 APPLIC; Start 06/26/17 at 00:00 Eye Lubricant 2 drop 2 drop Q6 BOTH EYES Last administered on 06/29/17 05:39; Admin Dose 2 DROP; Start 06/26/17 at 00:00 Cefepime HCl 50 ml @ 100 mls/hr Q12 IVPB Last administered on 06/29/17 08:08 ; Admin Dose 100 MLS/HR; Start 06/26/17 at 09:00 Norepinephrine/ Dextrose (Levophed/D5W) 500 ml @ 1.87 mls/hr TITRATE IV Last administered on 06/28/17 00:51; Admin Dose 3.75 MLS/HR; Start 06/26/17 at 10:30 Famotidine (Pepcid Iv) 20 mg Q12H IV Last administered on 06/29/17 08:08; Admin Dose 20 MG; Start 06/26/17 at 21:00 Labetalol HCl 10 mg 10 mg Q2 PRN IV SBP GREATER THAN 160 Last administered on 15:24; Admin Dose 10 MG; Start 06/26/17 at 15:00 Vecuronium [place] 100 mg/ Dextrose 100 ml @ 4.762 mls/ hr TITRATE IV ; Start 06/27/17 at 08:00 Dextrose/Sodium Chloride 1,000 ml @ 75 mls/hr [id number] IV Last administered on 06/28/17 19:05; Admin Dose 75 MLS/HR; Start 06/27/17 at 13:00 Vancomycin HCl 1.5 gm/Sodium Chloride 250 ml @ 83.333 mls/ hr Q12H IVPB Last administered on 06/29/17 00:08; Admin Dose 83.333 MLS/HR; Start 06/28/17 at 00: 00 Levetiracetam (Keppra 500 Mg/ 100ml (Pmx)) 100 ml @ 400 mls/hr Q12 IVPB Last administered on 06/29/17 08:08; Admin Dose 400 MLS/HR; Start 06/27/17 at 21:00 Miscellaneous Information (*Rx Drug Level Order Reminder*) VANCOMYCIN TROUGH AT 1100 ONCE ONCE XX ; Start 06/29/17 at 11:00; Stop 06/29/17 at 11:01 JON EUCEDA MD Jun 29, 2017 08:21
--- NOTE | 2017-06-29 10:05 | CONS ---
Date/Time of Note Date/Time of Note DATE: 06/29/17 TIME: 10:02 Consult Date/Type/Reason Admit Date/Time Jun 25, 2017 at 21:12 Initial Consult Date 06/28/17 Type of Consultation: Pulmonary/critical care Ordering Provider: HAYDEN LACEY Subjective Patient remains unresponsive on mechanical ventilation Breathing above the set ventilator rate Pupils appears sluggish today Objective Vital Signs Date Time Temp Pulse Resp B/P Pulse Ox O2 Delivery O2 Flow Rate FiO2 06/29/17 08:30 105 19 136/74 98 Mechanical Ventilator 06/29/17 08:00 101.5 06/29/17 05:22 30 Intake and Output 06/28/17 06/28/17 06/29/17 15:00 23:00 07:00 Intake Total 922.50 ml 813.12 ml 675 ml Output Total 471 ml 358 ml 311 ml Balance 451.50 ml 455.12 ml 364 ml Exam PHYSICAL EXAMINATION GENERAL: Well-nourished well-developed lady intubated on mechanical ventilation. Somnolent. VITAL SIGNS: see below. HEENT: Pupils equal, round, and reactive to light. CARDIAC: S1, S2, 2/6 systolic ejection murmur CHEST: Diminished air entry bilaterally. ABDOMEN: Mildly distended. Bowel sounds present no guarding or rebound EXTREMITIES: No cyanosis, clubbing edema +1 NEUROLOGIC: Unable to assess. Results/Medications Result Diagram: 06/28/17 0500 06/28/17 0500 Medications Current Medications Ondansetron HCl (Zofran Inj) 4 mg Q6H PRN IV NAUSEA AND/OR VOMITING; Start at 21:30 Acetaminophen (Tylenol Supp) 650 mg Q4H PRN [place] PAIN LEVEL 1-3 OR FEVER; Start 06/25/17 at 21:30 Lorazepam (Ativan) 1 mg Q2H PRN IV ANXIETY Last administered on 06/25/17t 22:02 ; Admin Dose 1 MG; Start 06/25/17 at 21:30 Meperidine HCl (Demerol) 12.5 mg Q4H PRN IV POST OPERATIVE SHIVERING; Start at 21:30 Meperidine HCl (Demerol) 25 mg Q4H PRN IV POST OPERATIVE SHIVERING; Start 06/25 at 21:30 Eye Lubricant (Akwa Oint) 1 applic Q6 BOTH EYES Last administered on 06/29/17 05:33; Admin Dose 1 APPLIC; Start 06/26/17 at 00:00 Eye Lubricant 2 drop 2 drop Q6 BOTH EYES Last administered on 06/29/17 05:39; Admin Dose 2 DROP; Start 06/26/17 at 00:00 Cefepime HCl 50 ml @ 100 mls/hr Q12 IVPB Last administered on 06/29/17 08:08 ; Admin Dose 100 MLS/HR; Start 06/26/17 at 09:00 Norepinephrine/ Dextrose (Levophed/D5W) 500 ml @ 1.87 mls/hr TITRATE IV Last administered on 06/28/17 00:51; Admin Dose 3.75 MLS/HR; Start 06/26/17 at 10:30 Famotidine (Pepcid Iv) 20 mg Q12H IV Last administered on 06/29/17 08:08; Admin Dose 20 MG; Start 06/26/17 at 21:00 Labetalol HCl 10 mg 10 mg Q2 PRN IV SBP GREATER THAN 160 Last administered on 15:24; Admin Dose 10 MG; Start 06/26/17 at 15:00 Vecuronium [place] 100 mg/ Dextrose 100 ml @ 4.762 mls/ hr TITRATE IV ; Start 06/27/17 at 08:00 Dextrose/Sodium Chloride 1,000 ml @ 75 mls/hr [id number] IV Last administered on 06/28/17 19:05; Admin Dose 75 MLS/HR; Start 06/27/17 at 13:00 Vancomycin HCl 1.5 gm/Sodium Chloride 250 ml @ 83.333 mls/ hr Q12H IVPB Last administered on 06/29/17 00:08; Admin Dose 83.333 MLS/HR; Start 06/28/17 at 00: 00 Levetiracetam (Keppra 500 Mg/ 100ml (Pmx)) 100 ml @ 400 mls/hr Q12 IVPB Last administered on 06/29/17 08:08; Admin Dose 400 MLS/HR; Start 06/27/17 at 21:00 Miscellaneous Information (*Rx Drug Level Order Reminder*) VANCOMYCIN TROUGH AT 1100 ONCE ONCE XX ; Start 06/29/17 at 11:00; Stop 06/29/17 at 11:01 Assessment/Plan Chief Complaint/Hosp Course Assessment 1. V. fib arrest prolonged resuscitation before return of circulation 2. Probable anoxic brain injury 3. Hypoxemic respiratory failure with left lower lobe infiltrate and/or effusion 4. Severe cardiomyopathy with decreased ejection fraction 5. Shock liver., Prolonged resuscitation Plan 1. Continue mechanical ventilation 2. Continue antibiotic coverage 3. Start tube feeding 4. Cardiology recommendations 5. Neurology recommendations Overall prognosis is very poor. Problems: MICHAEL IRENE MD, [facility] Jun 29, 2017 10:05
[2017-06-29 10:45] LABS: ABNORMAL IP MESSAGE 1; BASOPHILS % 0.1 % (0.0-2.0); HEMATOCRIT 24.7 % (37.0-47.0); HEMOGLOBIN 8.1 g/dl (12.0-16.0); LYMPHOCYTES # 1.6 10^3/ul (0.8-2.9); LYMPHOCYTES % 13.2 % (15.0-51.0); MEAN CORPUSCULAR HEMOGLOBIN 31.4 pg (29.0-33.0); MEAN CORPUSCULAR HGB CONC 32.8 g/dl (32.0-37.0); MEAN CORPUSCULAR VOLUME 95.7 fl (82.0-101.0); MEAN PLATELET VOLUME 10.3 fl (7.4-10.4); MONOCYTE # 0.5 10^3/ul (0.3-0.9); MONOCYTES % 4.2 % (0.0-11.0); NEUTROPHILS % 81.6 % (39.0-77.0); PLATELET COUNT 93 10^3/UL (140-415); RED BLOOD COUNT 2.58 10^6/ul (4.20-5.40); RED CELL DISTRIBUTION WIDTH 13.7 % (11.5-14.5); WHITE BLOOD COUNT 12.3 10^3/ul (4.8-10.8)
[2017-06-29 10:47] LABS: POSITIVE DIFF @See below
--- NOTE | 2017-06-29 11:00 | PRO ---
DATE OF PROCEDURE: 06/28/2017 PROCEDURE PERFORMED: Electroencephalogram. INDICATION: The patient is a 66-year-old woman admitted following a cardiorespiratory arrest and was in PEA and ventricular fibrillation. She was resuscitated. CURRENT MEDICATIONS: Keppra. PROCEDURE: Utilizing a 16 channel EEG machine cap scalp electrodes were applied in accordance with the International 10/20 system. Scalp to scalp and scalp to ear montages were displayed. Electrical impedances were measured and reported. DESCRIPTION OF PROCEDURE: During a resting state posterior dominant rhythm was 3-4 hertz delta activity with burst suppression pattern was seen throughout the tracing. INTERPRETATION: This is an abnormal EEG due to presence of burst suppression pattern with extreme slowing with delta waves. Appearance is consistent with severe encephalopathy. Please correlate these findings with the patient's clinical picture. Dictated By: Nieves Galarza MD /[email or web address]/lali /Document#: [id number]
[2017-06-29 11:05] LABS: CALCIUM 7.1 mg/dl (8.4-10.2); CREATININE 0.64 mg/dl (0.44-1.00); POTASSIUM 3.4 mmol/L (3.5-5.1)
--- NOTE | 2017-06-29 11:16 | CONS ---
Date/Time of Note Date/Time of Note DATE: 06/29/17 TIME: 11:14 Consult Date/Type/Reason Admit Date/Time Jun 25, 2017 at 21:12 Initial Consult Date 06/28/17 Type of Consultation: Neurolgoy Reason for Consultation eval for ischemic injury Ordering Provider: HAYDEN LACEY Subjective remains intubated unresponsive gag and corneals present Objective Vital Signs Date Time Temp Pulse Resp B/P Pulse Ox O2 Delivery O2 Flow Rate FiO2 06/29/17 08:30 105 19 136/74 98 Mechanical Ventilator 06/29/17 08:00 101.5 06/29/17 05:22 30 Intake and Output 06/28/17 06/28/17 06/29/17 15:00 23:00 07:00 Intake Total 922.50 ml 813.12 ml 675 ml Output Total 471 ml 358 ml 311 ml Balance 451.50 ml 455.12 ml 364 ml Exam unresponsive to verbal stimuli CN; sluggish dolls partial corneals and gag present Motor absent w/d Results/Medications Result Diagram: 06/29/17 1035 06/29/17 1035 Results 24 hrs Laboratory Tests Test 06/29/17 10:35 White Blood Count 12.3 #H Red Blood Count 2.58 L Hemoglobin 8.1 L Hematocrit 24.7 L Mean Corpuscular Volume 95.7 Mean Corpuscular Hemoglobin 31.4 Mean Corpuscular Hemoglobin Concent 32.8 Red Cell Distribution Width 13.7 Platelet Count 93 #L Mean Platelet Volume 10.3 Neutrophils % 81.6 H Lymphocytes % 13.2 L Monocytes % 4.2 Eosinophils % 0.0 Basophils % 0.1 Nucleated Red Blood Cells % 0.0 Neutrophils # (Manual) 10 H Lymphocytes # 1.6 Monocytes # 0.5 Eosinophils # 0.0 Basophils # 0.0 Nucleated Red Blood Cells # 0.0 Sodium Level 141 Potassium Level 3.4 L Chloride Level 106 Carbon Dioxide Level 27 Anion Gap 11 Blood Urea Nitrogen 14 Creatinine 0.64 Glucose Level 113 Calcium Level 7.1 L Medications Current Medications Ondansetron HCl (Zofran Inj) 4 mg Q6H PRN IV NAUSEA AND/OR VOMITING; Start at 21:30 Acetaminophen (Tylenol Supp) 650 mg Q4H PRN [place] PAIN LEVEL 1-3 OR FEVER; Start 06/25/17 at 21:30 Lorazepam (Ativan) 1 mg Q2H PRN IV ANXIETY Last administered on 06/25/17 22:02 ; Admin Dose 1 MG; Start 06/25/17 at 21:30 Meperidine HCl (Demerol) 12.5 mg Q4H PRN IV POST OPERATIVE SHIVERING; Start at 21:30 Meperidine HCl (Demerol) 25 mg Q4H PRN IV POST OPERATIVE SHIVERING; Start 06/25 at 21:30 Eye Lubricant (Akwa Oint) 1 applic Q6 BOTH EYES Last administered on 06/29/17 05:33; Admin Dose 1 APPLIC; Start 06/26/17 at 00:00 Eye Lubricant 2 drop 2 drop Q6 BOTH EYES Last administered on 06/29/17 05:39; Admin Dose 2 DROP; Start 06/26/17 at 00:00 Cefepime HCl 50 ml @ 100 mls/hr Q12 IVPB Last administered on 06/29/17 08:08 ; Admin Dose 100 MLS/HR; Start 06/26/17 at 09:00 Norepinephrine/ Dextrose (Levophed/D5W) 500 ml @ 1.87 mls/hr TITRATE IV Last administered on 06/28/17 00:51; Admin Dose 3.75 MLS/HR; Start 06/26/17 at 10:30 Famotidine (Pepcid Iv) 20 mg Q12H IV Last administered on 06/29/17 08:08; Admin Dose 20 MG; Start 06/26/17 at 21:00 Labetalol HCl 10 mg 10 mg Q2 PRN IV SBP GREATER THAN 160 Last administered on 15:24; Admin Dose 10 MG; Start 06/26/17 at 15:00 Vecuronium [place] 100 mg/ Dextrose 100 ml @ 4.762 mls/ hr TITRATE IV ; Start 06/27/17 at 08:00 Dextrose/Sodium Chloride 1,000 ml @ 75 mls/hr [id number] IV Last administered on 06/28/17 19:05; Admin Dose 75 MLS/HR; Start 06/27/17 at 13:00 Vancomycin HCl 1.5 gm/Sodium Chloride 250 ml @ 83.333 mls/ hr Q12H IVPB Last administered on 06/29/17 00:08; Admin Dose 83.333 MLS/HR; Start 06/28/17 at 00: 00 Levetiracetam (Keppra 500 Mg/ 100ml (Pmx)) 100 ml @ 400 mls/hr Q12 IVPB Last administered on 06/29/17 08:08; Admin Dose 400 MLS/HR; Start 06/27/17 at 21:00 Assessment/Plan Chief Complaint/Hosp Course 66 yo female admitted with cardiac arrest with ROSC after 40 mins was in PEA and V fib s/p shock admitted to ICU with shock liver, respiratory failure, VPA added for myoclonus. MRI Brain: ischemic injury to bilateral hippocampal gyri EEG with burst suppression pattern 3-4 Hz- generally a/w poor prognosis for meaningful neurologic recovery Recommendations: continue seizure precautions may c/w VPA 500 mg q8h given result of EEG and MRI likely poor prognosis for meaningful recovery appreciate palliative care input as well Problems: JESSICA HALL MD Jun 29, 2017 11:16
--- NOTE | 2017-06-29 13:24 | PN ---
Date/Time of Note Date/Time of Note DATE: 06/29/17 TIME: 13:18 Assessment/Plan VTE Prophylaxis VTE Prophylaxis Intervention: LMWH Lines/Catheters IV Catheter Type (from Nrs): Central Line Central line still needed: Yes Urinary Cath still in place: Yes Reason Cath still needed: urinary retention Assessment/Plan Chief Complaint/Hosp Course 66 yo female who suffered VT arrest with ROSC, found to have systolic cardiomyopathy. S/p hypothermia protocol with poor neurologic status. Family in discussions for possible palliative extubation CV: Systolic cardiomyopathy, s/p VT arrest, s/p hypothermia protocol - Continue pressor as needed for BP support PULM Resipratory faiulre 12/10 cerebral ischemia: - continue MV for now NEURO: Anoxic brain injury leading to comatose state -Seizure ppx per neurology - MRI - serial neuro checks - Consider palliative extubation per family wishes ID: [id number] PPx: HSQ, PPI DNR Considering palliative extubation - [place] consulted Problems: Subjective 24 Hr Interval Summary Free Text/Dictation Minimal change to patient's status MRI and EEG not encouraging for neurologic recovery Off of levophed Discussed case with the patient's sister and brother in law. Sister is serving as her HCP. They wish to have her made DNR at this point and are considering palliative extubation but would like more time to confer with family, possibly have family visit. Exam/Review of Systems Vital Signs Vitals Vital Signs Date Time Temp Pulse Resp B/P Pulse Ox O2 Delivery O2 Flow Rate FiO2 06/29/17 12:00 88 06/29/17 11:00 20 89 30 06/29/17 08:30 136/74 Mechanical Ventilator 06/29/17 08:00 101.5 Intake and Output 06/28/17 06/28/17 06/29/17 15:00 23:00 07:00 Intake Total 922.50 ml 813.12 ml 675 ml Output Total 471 ml 358 ml 311 ml Balance 451.50 ml 455.12 ml 364 ml Exam Intubated on mechanical ventilation No pupillary reflexs No dolls eye + Gag + spontaneous breaths on vent Femoral line in place Results Result Diagram: 06/29/17 1035 06/29/17 1035 Results 24 hrs Laboratory Tests Test 06/29/17 10:35 White Blood Count 12.3 #H Red Blood Count 2.58 L Hemoglobin 8.1 L Hematocrit 24.7 L Mean Corpuscular Volume 95.7 Mean Corpuscular Hemoglobin 31.4 Mean Corpuscular Hemoglobin Concent 32.8 Red Cell Distribution Width 13.7 Platelet Count 93 #L Mean Platelet Volume 10.3 Neutrophils % 81.6 H Lymphocytes % 13.2 L Monocytes % 4.2 Eosinophils % 0.0 Basophils % 0.1 Nucleated Red Blood Cells % 0.0 Neutrophils # (Manual) 10 H Lymphocytes # 1.6 Monocytes # 0.5 Eosinophils # 0.0 Basophils # 0.0 Nucleated Red Blood Cells # 0.0 Sodium Level 141 Potassium Level 3.4 L Chloride Level 106 Carbon Dioxide Level 27 Anion Gap 11 Blood Urea Nitrogen 14 Creatinine 0.64 Glucose Level 113 Calcium Level 7.1 L Vancomycin Level Trough 13.9 Medications Medications Current Medications Ondansetron HCl (Zofran Inj) 4 mg Q6H PRN IV NAUSEA AND/OR VOMITING; Start at 21:30 Acetaminophen (Tylenol Supp) 650 mg Q4H PRN [place] PAIN LEVEL 1-3 OR FEVER; Start 06/25/17 at 21:30 Lorazepam (Ativan) 1 mg Q2H PRN IV ANXIETY Last administered on 06/25/17 22:02 ; Admin Dose 1 MG; Start 06/25/17 at 21:30 Meperidine HCl (Demerol) 12.5 mg Q4H PRN IV POST OPERATIVE SHIVERING; Start at 21:30 Meperidine HCl (Demerol) 25 mg Q4H PRN IV POST OPERATIVE SHIVERING; Start 06/25 at 21:30 Eye Lubricant (Akwa Oint) 1 applic Q6 BOTH EYES Last administered on 06/29/17 12:42; Admin Dose 1 APPLIC; Start 06/26/17 at 00:00 Eye Lubricant 2 drop 2 drop Q6 BOTH EYES Last administered on 06/29/17 12:42; Admin Dose 2 DROP; Start 06/26/17 at 00:00 Cefepime HCl 50 ml @ 100 mls/hr Q12 IVPB Last administered on 06/29/17 08:08 ; Admin Dose 100 MLS/HR; Start 06/26/17 at 09:00 Norepinephrine/ Dextrose (Levophed/D5W) 500 ml @ 1.87 mls/hr TITRATE IV Last administered on 06/28/17 00:51; Admin Dose 3.75 MLS/HR; Start 06/26/17 at 10:30 Famotidine (Pepcid Iv) 20 mg Q12H IV Last administered on 06/29/17 08:08; Admin Dose 20 MG; Start 06/26/17 at 21:00 Labetalol HCl 10 mg 10 mg Q2 PRN IV SBP GREATER THAN 160 Last administered on 15:24; Admin Dose 10 MG; Start 06/26/17 at 15:00 Vecuronium [place] 100 mg/ Dextrose 100 ml @ 4.762 mls/ hr TITRATE IV ; Start 06/27/17 at 08:00 Dextrose/Sodium Chloride 1,000 ml @ 75 mls/hr [id number] IV Last administered on 06/28/17 19:05; Admin Dose 75 MLS/HR; Start 06/27/17 at 13:00 Vancomycin HCl 1.5 gm/Sodium Chloride 250 ml @ 83.333 mls/ hr Q12H IVPB Last administered on 06/29/17 12:15; Admin Dose 83.333 MLS/HR; Start 06/28/17 at 00: 00 Levetiracetam (Keppra 500 Mg/ 100ml (Pmx)) 100 ml @ 400 mls/hr Q12 IVPB Last administered on 06/29/17 08:08; Admin Dose 400 MLS/HR; Start 06/27/17 at 21:00 JULY BOCANEGRA MD Jun 29, 2017 13:24
--- NOTE | 2017-06-29 15:12 | CONS ---
Date/Time of Note Date/Time of Note DATE: 06/29/17 TIME: 15:03 Assessment/Plan Assessment/Plan Additional Assessment/Plan 66-year-old female with witnessed cardiac arrest with spontaneous return of circulation Status post hypothermia protocol Ventricular fibrillation Respiratory failure Intubation Anoxic brain injury I have had extensive conversation with patient's family patient's sister and [id number]. There are 2 other brothers who live in the [facility] otherwise she has no other first-degree family members patient is not and has no children. Recover goals of care patient's prior wishes not to live in a debilitated vegetative condition, control of symptom, ethical, cultural, cheondoism issues were all addressed in our conversation. Patient has no obvious sign of pain symptoms are well controlled. Family have decided to contact patient's 2 brothers tonight and discuss ongoing level of care. It was my recommendation that if family members like to visit they should come now. Otherwise family members request at least a couple of days to allow the rest of family members to make arrangements to come out as soon as possible. Patient is DO NOT RESUSCITATE... Consultation Date/Type/Reason Admit Date/Time Jun 25, 2017 at 21:12 Date of Consultation: Jun 29, 2017 Reason for Consultation Palliative Hx of Present Illness Patient is a 66-year-old female who was exercising and had a witnessed arrest. She had 40 minutes of cardiopulmonary resuscitation, intubated brought to emergency room was placed on hypothermia protocol. She has not had any spontaneous recovery from a neurological standpoint since admission. IMPRESSION: 1. 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 2. Bilateral mastoid effusions. Dr. Pat discussed findings with Bethanie Fisher RN, the ICU nurse responsible for this patient, via telephone at 06/28/2017 4:14:15 PM with read back confirmation. RPTAT: PP Physician Delia Date Time Electronically viewed and signed by Physician Delia on 06/28/2017 16: 15 LG/ CC: JESSICA HALL MD Past Medical History Medical History: other (Unknown) Past Surgical History Past Surgical Hx: other (Unknown) Social History Alcohol Use: other (Unknown) Smoking Status: Unknown if ever smoked Drug Use: other (Unknown) Exam/Review of Systems Vital Signs Vitals Vital Signs Date Time Temp Pulse Resp B/P Pulse Ox O2 Delivery O2 Flow Rate FiO2 06/29/17 13:30 96 18 134/82 100 06/29/17 12:00 99.5 06/29/17 11:00 30 06/29/17 08:30 Mechanical Ventilator Intake and Output 06/28/17 06/28/17 06/29/17 15:00 23:00 07:00 Intake Total 922.50 ml 813.12 ml 675 ml Output Total 471 ml 358 ml 341 ml Balance 451.50 ml 455.12 ml 334 ml Exam Constitutional: other (Intubated) Neck: No bruits, No jvd, No masses, No non-tender, No nuchal rigidity, No other , No supple, No thyromegaly Respiratory: No clear to auscultation, No congested cough, No crackles/rales, No diminished breath sounds, No intercostal retraction, No labored breathing, No normal air movement, No other, No respirations, No tactile fremitus, No wheezing Cardiovascular: No S3, No S4, No bruits, No diastolic murmur, No edema, No gallop, No irregular rhythm, No jugular venous distention (JVD), No murmurs/ extra sounds, No nl pulses, No other, No regular rate and rhythm, No rub, No systolic murmur Neurological: other (Bilateral pupils 2 mm sluggish bilateral pupillary light reflex, negative doll's) Results Result Diagram: 06/29/17 1035 06/29/17 1035 Results 24 hrs Laboratory Tests Test 06/29/17 10:35 White Blood Count 12.3 #H Red Blood Count 2.58 L Hemoglobin 8.1 L Hematocrit 24.7 L Mean Corpuscular Volume 95.7 Mean Corpuscular Hemoglobin 31.4 Mean Corpuscular Hemoglobin Concent 32.8 Red Cell Distribution Width 13.7 Platelet Count 93 #L Mean Platelet Volume 10.3 Neutrophils % 81.6 H Lymphocytes % 13.2 L Monocytes % 4.2 Eosinophils % 0.0 Basophils % 0.1 Nucleated Red Blood Cells % 0.0 Neutrophils # (Manual) 10 H Lymphocytes # 1.6 Monocytes # 0.5 Eosinophils # 0.0 Basophils # 0.0 Nucleated Red Blood Cells # 0.0 Sodium Level 141 Potassium Level 3.4 L Chloride Level 106 Carbon Dioxide Level 27 Anion Gap 11 Blood Urea Nitrogen 14 Creatinine 0.64 Glucose Level 113 Calcium Level 7.1 L Vancomycin Level Trough 13.9 Medications Medications Current Medications Ondansetron HCl (Zofran Inj) 4 mg Q6H PRN IV NAUSEA AND/OR VOMITING; Start at 21:30 Acetaminophen (Tylenol Supp) 650 mg Q4H PRN [place] PAIN LEVEL 1-3 OR FEVER; Start 06/25/17 at 21:30 Lorazepam (Ativan) 1 mg Q2H PRN IV ANXIETY Last administered on 06/25/17 22:02 ; Admin Dose 1 MG; Start 06/25/17 at 21:30 Meperidine HCl (Demerol) 12.5 mg Q4H PRN IV POST OPERATIVE SHIVERING; Start at 21:30 Meperidine HCl (Demerol) 25 mg Q4H PRN IV POST OPERATIVE SHIVERING; Start 06/25 at 21:30 Eye Lubricant (Akwa Oint) 1 applic Q6 BOTH EYES Last administered on 06/29/17 12:42; Admin Dose 1 APPLIC; Start 06/26/17 at 00:00 Eye Lubricant 2 drop 2 drop Q6 BOTH EYES Last administered on 06/29/17 12:42; Admin Dose 2 DROP; Start 06/26/17 at 00:00 Cefepime HCl 50 ml @ 100 mls/hr Q12 IVPB Last administered on 06/29/17 08:08 ; Admin Dose 100 MLS/HR; Start 06/26/17 at 09:00 Norepinephrine/ Dextrose (Levophed/D5W) 500 ml @ 1.87 mls/hr TITRATE IV Last administered on 06/28/17 00:51; Admin Dose 3.75 MLS/HR; Start 06/26/17 at 10:30 Famotidine (Pepcid Iv) 20 mg Q12H IV Last administered on 06/29/17 08:08; Admin Dose 20 MG; Start 06/26/17 at 21:00 Labetalol HCl 10 mg 10 mg Q2 PRN IV SBP GREATER THAN 160 Last administered on 15:24; Admin Dose 10 MG; Start 06/26/17 at 15:00 Vecuronium [place] 100 mg/ Dextrose 100 ml @ 4.762 mls/ hr TITRATE IV ; Start 06/27/17 at 08:00 Dextrose/Sodium Chloride 1,000 ml @ 75 mls/hr [id number] IV Last administered on 06/28/17 19:05; Admin Dose 75 MLS/HR; Start 06/27/17 at 13:00 Vancomycin HCl 1.5 gm/Sodium Chloride 250 ml @ 83.333 mls/ hr Q12H IVPB Last administered on 06/29/17 12:15; Admin Dose 83.333 MLS/HR; Start 06/28/17 at 00: 00 Levetiracetam (Keppra 500 Mg/ 100ml (Pmx)) 100 ml @ 400 mls/hr Q12 IVPB Last administered on 06/29/17 08:08; Admin Dose 400 MLS/HR; Start 06/27/17 at 21:00 BREN GARCIA Jun 29, 2017 15:12
[2017-06-29] MEDS: ACETAMINOPHEN 650MG/20.3ML CUP GTB PRN (16:07)
[2017-06-30] VITALS (32 sets, daily range): BP systolic 120–152; BP diastolic 58–85; PULSE 87–160; RESP 16–24
[2017-06-30] MEDS: ACETAMINOPHEN 650MG/20.3ML CUP GTB PRN (01:33)
[2017-06-30 05:34] LABS: CREATININE 0.62 mg/dl (0.44-1.00)
[2017-06-30] MEDS: ARTIFICIAL TEARS 15 ML OPH BOTH EYES SCH ×3 (05:44→17:20)
[2017-06-30] MEDS: OCULAR LUBRICANT 3.5 GM OPH OINT BOTH EYES SCH ×3 (05:44→17:21)
[2017-06-30] MEDS: FAMOTIDINE 20 MG INJ IV SCH (08:28)
[2017-06-30] MEDS: CEFEPIME 1GM/50 ML (PMX) 50 ML IVPB SCH ×2 (08:28→20:19)
--- NOTE | 2017-06-30 09:43 | CONS ---
Date/Time of Note Date/Time of Note DATE: 06/30/17 TIME: 09:41 Assessment/Plan Assessment/Plan Chief Complaint/Hosp Course Patient is a 66-year-old female who was exercising and had a witnessed arrest. She had 40 minutes of cardiopulmonary resuscitation, intubated brought to emergency room was placed on hypothermia protocol. She has not had any spontaneous recovery from a neurological standpoint since admission. IMPRESSION: 1. 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 2. Bilateral mastoid effusions. Dr. Pat discussed findings with Bethanie Fisher RN, the ICU nurse responsible for this patient, via telephone at 06/28/2017 4:14:15 PM with read back confirmation. RPTAT: PP Janusz Pat Physician Date Time Electronically viewed and signed by Janusz Pat Physician on 06/28/2017 16: 15 LG/ CC: JESSICA HALL MD Problems: Additional Assessment/Plan There is been no change in patient's overall clinical status. Family members decision yesterday was change her CODE STATUS to DO NOT RESUSCITATE and contact family members on the [facility] to come out as soon as possible. Plan is to do compassionate extubation within the next 2 days. Consultation Date/Type/Reason Admit Date/Time Jun 25, 2017 at 21:12 Initial Consult Date 06/29/17 Type of Consultation: Palliative care Referring Provider: HAYDEN LACEY Exam/Review of Systems Vital Signs Vitals Vital Signs Date Time Temp Pulse Resp B/P Pulse Ox O2 Delivery O2 Flow Rate FiO2 06/30/17 08:00 98.8 90 17 128/75 98 Mechanical Ventilator 06/30/17 05:03 30 Intake and Output 06/29/17 06/29/17 06/30/17 15:00 23:00 07:00 Intake Total 1165 ml 500 ml 824.6 ml Output Total 273 ml 313 ml 519 ml Balance 892 ml 187 ml 305.6 ml Results Result Diagram: 06/29/17 1035 06/30/17 0355 Results 24 hrs Laboratory Tests Test 06/29/17 10:35 06/30/17 03:55 White Blood Count 12.3 #H Red Blood Count 2.58 L Hemoglobin 8.1 L Hematocrit 24.7 L Mean Corpuscular Volume 95.7 Mean Corpuscular Hemoglobin 31.4 Mean Corpuscular Hemoglobin Concent 32.8 Red Cell Distribution Width 13.7 Platelet Count 93 #L Mean Platelet Volume 10.3 Neutrophils % 81.6 H Lymphocytes % 13.2 L Monocytes % 4.2 Eosinophils % 0.0 Basophils % 0.1 Nucleated Red Blood Cells % 0.0 Neutrophils # (Manual) 10 H Lymphocytes # 1.6 Monocytes # 0.5 Eosinophils # 0.0 Basophils # 0.0 Nucleated Red Blood Cells # 0.0 Sodium Level 141 Potassium Level 3.4 L Chloride Level 106 Carbon Dioxide Level 27 Anion Gap 11 Blood Urea Nitrogen 14 17 Creatinine 0.64 0.62 Glucose Level 113 Calcium Level 7.1 L Vancomycin Level Trough 13.9 Medications Medications Current Medications Ondansetron HCl (Zofran Inj) 4 mg Q6H PRN IV NAUSEA AND/OR VOMITING; Start at 21:30 Acetaminophen (Tylenol Supp) 650 mg Q4H PRN [place] PAIN LEVEL 1-3 OR FEVER; Start 06/25/17 at 21:30 Lorazepam (Ativan) 1 mg Q2H PRN IV ANXIETY Last administered on 06/25/17 22:02 ; Admin Dose 1 MG; Start 06/25/17 at 21:30 Meperidine HCl (Demerol) 12.5 mg Q4H PRN IV POST OPERATIVE SHIVERING; Start at 21:30 Meperidine HCl (Demerol) 25 mg Q4H PRN IV POST OPERATIVE SHIVERING; Start 06/25 at 21:30 Eye Lubricant (Akwa Oint) 1 applic Q6 BOTH EYES Last administered on 06/30/17 05:44; Admin Dose 1 APPLIC; Start 06/26/17 at 00:00 Eye Lubricant 2 drop 2 drop Q6 BOTH EYES Last administered on 06/30/17 05:44; Admin Dose 2 DROP; Start 06/26/17 at 00:00 Cefepime HCl 50 ml @ 100 mls/hr Q12 IVPB Last administered on 06/30/17 08:28 ; Admin Dose 100 MLS/HR; Start 06/26/17 at 09:00 Norepinephrine/ Dextrose (Levophed/D5W) 500 ml @ 1.87 mls/hr TITRATE IV Last administered on 06/28/17 00:51; Admin Dose 3.75 MLS/HR; Start 06/26/17 at 10:30 Famotidine (Pepcid Iv) 20 mg Q12H IV Last administered on 06/30/17 08:28; Admin Dose 20 MG; Start 06/26/17 at 21:00 Labetalol HCl 10 mg 10 mg Q2 PRN IV SBP GREATER THAN 160 Last administered on 15:24; Admin Dose 10 MG; Start 06/26/17 at 15:00 Vecuronium [place] 100 mg/ Dextrose 100 ml @ 4.762 mls/ hr TITRATE IV ; Start 06/27/17 at 08:00 Vancomycin HCl 1.5 gm/Sodium Chloride 250 ml @ 83.333 mls/ hr Q12H IVPB Last administered on 06/29/17 23:37; Admin Dose 83.333 MLS/HR; Start 06/28/17 at 00: 00 Levetiracetam (Keppra 500 Mg/ 100ml (Pmx)) 100 ml @ 400 mls/hr Q12 IVPB Last administered on 06/29/17 22:07; Admin Dose 400 MLS/HR; Start 06/27/17 at 21:00 Acetaminophen (Tylenol Liquid) 650 mg Q6H PRN GTB PAIN AND OR ELEVATED TEMP Last administered on 06/30/17 01:33; Admin Dose 650 MG; Start 06/29/17 at 16:00 BREN GARCIA Jun 30, 2017 09:42
--- NOTE | 2017-06-30 09:50 | CONS ---
Date/Time of Note Date/Time of Note DATE: 06/30/17 TIME: 09:49 Consult Date/Type/Reason Admit Date/Time Jun 25, 2017 at 21:12 Initial Consult Date 06/28/17 Type of Consultation: Pulmonary Ordering Provider: HAYDEN LACEY Subjective Patient's condition is unchanged. She remains somnolent on mechanical ventilation. Objective Vital Signs Date Time Temp Pulse Resp B/P Pulse Ox O2 Delivery O2 Flow Rate FiO2 06/30/17 08:00 98.8 90 17 128/75 98 Mechanical Ventilator 06/30/17 05:03 30 Intake and Output 06/29/17 06/29/17 06/30/17 15:00 23:00 07:00 Intake Total 1165 ml 500 ml 824.6 ml Output Total 273 ml 313 ml 519 ml Balance 892 ml 187 ml 305.6 ml Exam PHYSICAL EXAMINATION GENERAL: Well-nourished well-developed lady intubated on mechanical ventilation. Somnolent. VITAL SIGNS: see below. HEENT: Pupils equal, round, and reactive to light. CARDIAC: S1, S2, 2/6 systolic ejection murmur CHEST: Diminished air entry bilaterally. ABDOMEN: Mildly distended. Bowel sounds present no guarding or rebound EXTREMITIES: No cyanosis, clubbing edema +1 NEUROLOGIC: Unable to assess. Results/Medications Result Diagram: 06/29/17 1035 06/30/17 0355 Results 24 hrs Laboratory Tests Test 06/29/17 10:35 06/30/17 03:55 White Blood Count 12.3 #H Red Blood Count 2.58 L Hemoglobin 8.1 L Hematocrit 24.7 L Mean Corpuscular Volume 95.7 Mean Corpuscular Hemoglobin 31.4 Mean Corpuscular Hemoglobin Concent 32.8 Red Cell Distribution Width 13.7 Platelet Count 93 #L Mean Platelet Volume 10.3 Neutrophils % 81.6 H Lymphocytes % 13.2 L Monocytes % 4.2 Eosinophils % 0.0 Basophils % 0.1 Nucleated Red Blood Cells % 0.0 Neutrophils # (Manual) 10 H Lymphocytes # 1.6 Monocytes # 0.5 Eosinophils # 0.0 Basophils # 0.0 Nucleated Red Blood Cells # 0.0 Sodium Level 141 Potassium Level 3.4 L Chloride Level 106 Carbon Dioxide Level 27 Anion Gap 11 Blood Urea Nitrogen 14 17 Creatinine 0.64 0.62 Glucose Level 113 Calcium Level 7.1 L Vancomycin Level Trough 13.9 Medications Current Medications Ondansetron HCl (Zofran Inj) 4 mg Q6H PRN IV NAUSEA AND/OR VOMITING; Start at 21:30 Acetaminophen (Tylenol Supp) 650 mg Q4H PRN [place] PAIN LEVEL 1-3 OR FEVER; Start 06/25/17 at 21:30 Lorazepam (Ativan) 1 mg Q2H PRN IV ANXIETY Last administered on 06/25/17 22:02 ; Admin Dose 1 MG; Start 06/25/17 at 21:30 Meperidine HCl (Demerol) 12.5 mg Q4H PRN IV POST OPERATIVE SHIVERING; Start at 21:30 Meperidine HCl (Demerol) 25 mg Q4H PRN IV POST OPERATIVE SHIVERING; Start 06/25 at 21:30 Eye Lubricant (Akwa Oint) 1 applic Q6 BOTH EYES Last administered on 06/30/17 05:44; Admin Dose 1 APPLIC; Start 06/26/17 at 00:00 Eye Lubricant 2 drop 2 drop Q6 BOTH EYES Last administered on 06/30/17 05:44; Admin Dose 2 DROP; Start 06/26/17 at 00:00 Cefepime HCl 50 ml @ 100 mls/hr Q12 IVPB Last administered on 06/30/17 08:28 ; Admin Dose 100 MLS/HR; Start 06/26/17 at 09:00 Norepinephrine/ Dextrose (Levophed/D5W) 500 ml @ 1.87 mls/hr TITRATE IV Last administered on 06/28/17 00:51; Admin Dose 3.75 MLS/HR; Start 06/26/17 at 10:30 Famotidine (Pepcid Iv) 20 mg Q12H IV Last administered on 06/30/17 08:28; Admin Dose 20 MG; Start 06/26/17 at 21:00 Labetalol HCl 10 mg 10 mg Q2 PRN IV SBP GREATER THAN 160 Last administered on 15:24; Admin Dose 10 MG; Start 06/26/17 at 15:00 Vecuronium [place] 100 mg/ Dextrose 100 ml @ 4.762 mls/ hr TITRATE IV ; Start 06/27/17 at 08:00 Vancomycin HCl 1.5 gm/Sodium Chloride 250 ml @ 83.333 mls/ hr Q12H IVPB Last administered on 06/29/17 23:37; Admin Dose 83.333 MLS/HR; Start 06/28/17 at 00: 00 Levetiracetam (Keppra 500 Mg/ 100ml (Pmx)) 100 ml @ 400 mls/hr Q12 IVPB Last administered on 06/29/17 22:07; Admin Dose 400 MLS/HR; Start 06/27/17 at 21:00 Acetaminophen (Tylenol Liquid) 650 mg Q6H PRN GTB PAIN AND OR ELEVATED TEMP Last administered on 06/30/17 01:33; Admin Dose 650 MG; Start 06/29/17 at 16:00 Assessment/Plan Chief Complaint/Hosp Course Assessment 1. V. fib arrest prolonged resuscitation before return of circulation 2. Probable anoxic brain injury 3. Hypoxemic respiratory failure with left lower lobe infiltrate and/or effusion 4. Severe cardiomyopathy with decreased ejection fraction 5. Shock liver., Prolonged resuscitation Plan 1. Continue mechanical ventilation 2. Continue antibiotic coverage 3. Tube feeding 4. Cardiology recommendations 5. Neurology recommendations Pending family arrival from out of state. Will proceed to terminal extubation when everybody arrives. Problems: MICHAEL IRENE MD[facility] Jun 30, 2017 09:50
[2017-06-30] MEDS: LEVETIRACETAM 500 MG (PMX) 100 ML IVPB SCH ×2 (12:13→20:19)
[2017-06-30] MEDS: VANCOMYCIN 1.5 GM in SOD CHLORIDE 0.9% 250 ML IVPB SCH (12:16)
--- NOTE | 2017-06-30 13:09 | PN ---
Date/Time of Note Date/Time of Note DATE: 06/30/17 TIME: 13:08 Assessment/Plan VTE Prophylaxis VTE Prophylaxis Intervention: SCD's Lines/Catheters IV Catheter Type (from Nrs): Central Line Central line still needed: No Urinary Cath still in place: Yes Reason Cath still needed: urinary retention Assessment/Plan Chief Complaint/Hosp Course This is a 51-year-old female with no past medical history who was brought to the ER after cardiac arrest. Patient was doing water aerobic exercise when she collapsed. CPR was initiated by bystanders. When EMS arrived, she had agonal breathing and had very faint pulse. Shortly after however pulse was lost and was found to be in ventricular fibrillation. ROSC after about 40 minutes of resuscitation including shocks. When she arrived to the ER, she was unresponsive with dilated pupils. No gag or corneal reflex. Initially febrile with a temperature of 100.5. Labs shows creatinine 1.18, bicarb 12, glucose 369, AST 534, ALT 340. ABG on 100% FiO2 showed a pH of 6.9, PCO2 44, PO2 109 bicarb 9. Problems: Assessment/Plan Status post V-fib cardiopulmonary arrest: 40 minutes of resuscitation before ROSC RLL Aspiration PNA Vent dependent respiratory failure secondary to above Shock Liver Anoxic encephalopathy Hypotension Severe Cardiomyopathy -s/p hyopthermia protocol -off pressor support -no antiarrythmics necessary at this time -recheck echo in a few days -if patient recovers possible cath/AICD -no caridac meds for low EF due to hypotension -possible dobutamine if bp improves Subjective 24 Hr Interval Summary Free Text/Dictation The aptient with no cahgne Exam/Review of Systems Vital Signs Vitals Vital Signs Date Time Temp Pulse Resp B/P Pulse Ox O2 Delivery O2 Flow Rate FiO2 06/30/17 12:00 108 06/30/17 11:00 22 97 30 06/30/17 08:00 98.8 128/75 Mechanical Ventilator Intake and Output 06/29/17 06/29/17 06/30/17 15:00 23:00 07:00 Intake Total 1165 ml 500 ml 824.6 ml Output Total 273 ml 313 ml 519 ml Balance 892 ml 187 ml 305.6 ml Results Result Diagram: 06/29/17 1035 06/30/17 0355 Results 24 hrs Laboratory Tests Test 06/30/17 03:55 Blood Urea Nitrogen 17 Creatinine 0.62 Medications Medications Current Medications Ondansetron HCl (Zofran Inj) 4 mg Q6H PRN IV NAUSEA AND/OR VOMITING; Start at 21:30 Acetaminophen (Tylenol Supp) 650 mg Q4H PRN [place] PAIN LEVEL 1-3 OR FEVER; Start 06/25/17 at 21:30 Lorazepam (Ativan) 1 mg Q2H PRN IV ANXIETY Last administered on 06/25/17 22:02 ; Admin Dose 1 MG; Start 06/25/17 at 21:30 Meperidine HCl (Demerol) 12.5 mg Q4H PRN IV POST OPERATIVE SHIVERING; Start at 21:30 Meperidine HCl (Demerol) 25 mg Q4H PRN IV POST OPERATIVE SHIVERING; Start 06/25 at 21:30 Eye Lubricant (Akwa Oint) 1 applic Q6 BOTH EYES Last administered on 06/30/17 12:14; Admin Dose 1 APPLIC; Start 06/26/17 at 00:00 Eye Lubricant 2 drop 2 drop Q6 BOTH EYES Last administered on 06/30/17 12:14; Admin Dose 2 DROP; Start 06/26/17 at 00:00 Cefepime HCl 50 ml @ 100 mls/hr Q12 IVPB Last administered on 06/30/17 08:28 ; Admin Dose 100 MLS/HR; Start 06/26/17 at 09:00 Norepinephrine/ Dextrose (Levophed/D5W) 500 ml @ 1.87 mls/hr TITRATE IV Last administered on 06/28/17 00:51; Admin Dose 3.75 MLS/HR; Start 06/26/17 at 10:30 Famotidine (Pepcid Iv) 20 mg Q12H IV Last administered on 06/30/17 08:28; Admin Dose 20 MG; Start 06/26/17 at 21:00 Labetalol HCl 10 mg 10 mg Q2 PRN IV SBP GREATER THAN 160 Last administered on 15:24; Admin Dose 10 MG; Start 06/26/17 at 15:00 Vecuronium [place] 100 mg/ Dextrose 100 ml @ 4.762 mls/ hr TITRATE IV ; Start 06/27/17 at 08:00 Vancomycin HCl 1.5 gm/Sodium Chloride 250 ml @ 83.333 mls/ hr Q12H IVPB Last administered on 06/30/17 12:16; Admin Dose 83.333 MLS/HR; Start 06/28/17 at 00: 00 Levetiracetam (Keppra 500 Mg/ 100ml (Pmx)) 100 ml @ 400 mls/hr Q12 IVPB Last administered on 06/30/17 12:13; Admin Dose 400 MLS/HR; Start 06/27/17 at 21:00 Acetaminophen (Tylenol Liquid) 650 mg Q6H PRN GTB PAIN AND OR ELEVATED TEMP Last administered on 06/30/17 01:33; Admin Dose 650 MG; Start 06/29/17 at 16:00 JON EUCEDA MD Jun 30, 2017 13:09
--- NOTE | 2017-06-30 14:36 | CONS ---
Date/Time of Note Date/Time of Note DATE: 06/30/17 TIME: 14:33 Consult Date/Type/Reason Admit Date/Time Jun 25, 2017 at 21:12 Initial Consult Date 06/28/17 Type of Consultation: Neurology Reason for Consultation anoxic brain injury Ordering Provider: HAYDEN LACEY Subjective no improvement family made patient DNR leaning towards palliative extubation awaiting further family members Objective Vital Signs Date Time Temp Pulse Resp B/P Pulse Ox O2 Delivery O2 Flow Rate FiO2 06/30/17 13:00 102 20 138/79 97 Mechanical Ventilator 06/30/17 12:00 98.7 06/30/17 11:00 30 Intake and Output 06/29/17 06/29/17 06/30/17 15:00 23:00 07:00 Intake Total 1165 ml 500 ml 824.6 ml Output Total 273 ml 313 ml 519 ml Balance 892 ml 187 ml 305.6 ml Exam unresponsive to verbal stimuli CN; sluggish dolls partial corneals and gag present Motor absent w/d Results/Medications Result Diagram: 06/29/17 1035 06/30/17 0355 Results 24 hrs Laboratory Tests Test 06/30/17 03:55 Blood Urea Nitrogen 17 Creatinine 0.62 Medications Current Medications Ondansetron HCl (Zofran Inj) 4 mg Q6H PRN IV NAUSEA AND/OR VOMITING; Start at 21:30 Acetaminophen (Tylenol Supp) 650 mg Q4H PRN [place] PAIN LEVEL 1-3 OR FEVER; Start 06/25/17 at 21:30 Lorazepam (Ativan) 1 mg Q2H PRN IV ANXIETY Last administered on 06/25/17 22:02 ; Admin Dose 1 MG; Start 06/25/17 at 21:30 Meperidine HCl (Demerol) 12.5 mg Q4H PRN IV POST OPERATIVE SHIVERING; Start at 21:30 Meperidine HCl (Demerol) 25 mg Q4H PRN IV POST OPERATIVE SHIVERING; Start 06/25 at 21:30 Eye Lubricant (Akwa Oint) 1 applic Q6 BOTH EYES Last administered on 06/30/17 12:14; Admin Dose 1 APPLIC; Start 06/26/17 at 00:00 Eye Lubricant 2 drop 2 drop Q6 BOTH EYES Last administered on 06/30/17 12:14; Admin Dose 2 DROP; Start 06/26/17 at 00:00 Cefepime HCl 50 ml @ 100 mls/hr Q12 IVPB Last administered on 06/30/17 08:28 ; Admin Dose 100 MLS/HR; Start 06/26/17 at 09:00 Norepinephrine/ Dextrose (Levophed/D5W) 500 ml @ 1.87 mls/hr TITRATE IV Last administered on 06/28/17 00:51; Admin Dose 3.75 MLS/HR; Start 06/26/17 at 10:30 Famotidine (Pepcid Iv) 20 mg Q12H IV Last administered on 06/30/17 08:28; Admin Dose 20 MG; Start 06/26/17 at 21:00 Labetalol HCl 10 mg 10 mg Q2 PRN IV SBP GREATER THAN 160 Last administered on 15:24; Admin Dose 10 MG; Start 06/26/17 at 15:00 Vecuronium [place] 100 mg/ Dextrose 100 ml @ 4.762 mls/ hr TITRATE IV ; Start 06/27/17 at 08:00 Vancomycin HCl 1.5 gm/Sodium Chloride 250 ml @ 83.333 mls/ hr Q12H IVPB Last administered on 06/30/17 12:16; Admin Dose 83.333 MLS/HR; Start 06/28/17 at 00: 00 Levetiracetam (Keppra 500 Mg/ 100ml (Pmx)) 100 ml @ 400 mls/hr Q12 IVPB Last administered on 06/30/17 12:13; Admin Dose 400 MLS/HR; Start 06/27/17 at 21:00 Acetaminophen (Tylenol Liquid) 650 mg Q6H PRN GTB PAIN AND OR ELEVATED TEMP Last administered on 06/30/17 01:33; Admin Dose 650 MG; Start 06/29/17 at 16:00 Assessment/Plan Chief Complaint/Hosp Course 66 yo female admitted with cardiac arrest with ROSC after 40 mins was in PEA and V fib s/p shock admitted to ICU with shock liver, respiratory failure, Keppra added for myoclonus. MRI Brain: ischemic injury to bilateral hippocampal gyri EEG with burst suppression pattern 3-4 Hz- generally a/w poor prognosis for meaningful neurologic recovery Recommendations: continue seizure precautions on Keppra given result of EEG and MRI likely poor prognosis for meaningful recovery discussed with family (sister and [id number] today at bedside more in detail regarding EEG and MRI findings) reviewed MRI images with family they understand the results mean she is not brain but EEG shows slowing and is very abnormal with a burst suppression pattern they wish to move towards a palliative extubation when further family members arrive will follow up again tomorrow Problems: JESSICA HALL MD Jun 30, 2017 14:36
--- NOTE | 2017-06-30 16:36 | PN ---
Date/Time of Note Date/Time of Note DATE: 06/30/17 TIME: 16:34 Assessment/Plan VTE Prophylaxis VTE Prophylaxis Intervention: LMWH Lines/Catheters IV Catheter Type (from Nrsg): Central Line Central line still needed: Yes Urinary Cath still in place: Yes Reason Cath still needed: urinary retention Assessment/Plan Chief Complaint/Hosp Course 66 yo female who suffered VT arrest with ROSC, found to have systolic cardiomyopathy. S/p hypothermia protocol with poor neurologic status. Pending palliative extubation when family arrives later this week CV: Systolic cardiomyopathy, s/p VT arrest, s/p hypothermia protocol - Continue pressor as needed for BP support PULM Resipratory faiulre 12/10 cerebral ischemia: - continue MV for now NEURO: Anoxic brain injury leading to comatose state -Seizure ppx per neurology - Palliative extubation per family wishes PPx: HSQ, PPI DNR Pending palliative extubation - [place] consulted Problems: Subjective 24 Hr Interval Summary Free Text/Dictation Family has elected for palliative extubation on Wednesday when rest of family can arrive to say goodbye Exam/Review of Systems Vital Signs Vitals Vital Signs Date Time Temp Pulse Resp B/P Pulse Ox O2 Delivery O2 Flow Rate FiO2 06/30/17 16:00 99.1 97 17 125/64 97 Mechanical Ventilator 06/30/17 15:00 30 Intake and Output 06/29/17 06/29/17 06/30/17 14:59 22:59 06:59 Intake Total 1128 ml 572 ml 824.6 ml Output Total 275 ml 316 ml 484 ml Balance 853 ml 256 ml 340.6 ml Results Result Diagram: 06/29/17 1035 06/30/17 0355 Results 24 hrs Laboratory Tests Test 06/30/17 03:55 Blood Urea Nitrogen 17 Creatinine 0.62 Medications Medications Current Medications Ondansetron HCl (Zofran Inj) 4 mg Q6H PRN IV NAUSEA AND/OR VOMITING; Start at 21:30 Acetaminophen (Tylenol Supp) 650 mg Q4H PRN [place] PAIN LEVEL 1-3 OR FEVER; Start 06/25/17 at 21:30 Lorazepam (Ativan) 1 mg Q2H PRN IV ANXIETY Last administered on 06/25/17t 22:02 ; Admin Dose 1 MG; Start 06/25/17 at 21:30 Meperidine HCl (Demerol) 12.5 mg Q4H PRN IV POST OPERATIVE SHIVERING; Start at 21:30 Meperidine HCl (Demerol) 25 mg Q4H PRN IV POST OPERATIVE SHIVERING; Start 06/25 at 21:30 Eye Lubricant (Akwa Oint) 1 applic Q6 BOTH EYES Last administered on 06/30/17 12:14; Admin Dose 1 APPLIC; Start 06/26/17 at 00:00 Eye Lubricant 2 drop 2 drop Q6 BOTH EYES Last administered on 06/30/17 12:14; Admin Dose 2 DROP; Start 06/26/17 at 00:00 Cefepime HCl 50 ml @ 100 mls/hr Q12 IVPB Last administered on 06/30/17 08:28 ; Admin Dose 100 MLS/HR; Start 06/26/17 at 09:00 Norepinephrine/ Dextrose (Levophed/D5W) 500 ml @ 1.87 mls/hr TITRATE IV Last administered on 06/28/17 00:51; Admin Dose 3.75 MLS/HR; Start 06/26/17 at 10:30 Famotidine (Pepcid Iv) 20 mg Q12H IV Last administered on 06/30/17 08:28; Admin Dose 20 MG; Start 06/26/17 at 21:00 Labetalol HCl 10 mg 10 mg Q2 PRN IV SBP GREATER THAN 160 Last administered on 15:24; Admin Dose 10 MG; Start 06/26/17 at 15:00 Vecuronium [place] 100 mg/ Dextrose 100 ml @ 4.762 mls/ hr TITRATE IV ; Start 06/27/17 at 08:00 Vancomycin HCl 1.5 gm/Sodium Chloride 250 ml @ 83.333 mls/ hr Q12H IVPB Last administered on 06/30/17 12:16; Admin Dose 83.333 MLS/HR; Start 06/28/17 at 00: 00 Levetiracetam (Keppra 500 Mg/ 100ml (Pmx)) 100 ml @ 400 mls/hr Q12 IVPB Last administered on 06/30/17 12:13; Admin Dose 400 MLS/HR; Start 06/27/17 at 21:00 Acetaminophen (Tylenol Liquid) 650 mg Q6H PRN GTB PAIN AND OR ELEVATED TEMP Last administered on 06/30/17 01:33; Admin Dose 650 MG; Start 06/29/17 at 16:00 JULY BOCANEGRA MD Jun 30, 2017 16:36
[2017-07-01] VITALS (38 sets, daily range): BP systolic 113–174; BP diastolic 63–93; PULSE 83–167; RESP 12–26
[2017-07-01] MEDS: ARTIFICIAL TEARS 15 ML OPH BOTH EYES SCH ×4 (01:06→18:26)
[2017-07-01] MEDS: OCULAR LUBRICANT 3.5 GM OPH OINT BOTH EYES SCH ×4 (01:06→18:26)
[2017-07-01] MEDS: LANSOPRAZOLE 30 MG CAP GTB SCH (05:21)
[2017-07-01] MEDS: ACETAMINOPHEN 650MG/20.3ML CUP GTB PRN (07:46)
--- NOTE | 2017-07-01 07:50 | PN ---
Date/Time of Note Date/Time of Note DATE: 07/01/17 TIME: 07:49 Assessment/Plan VTE Prophylaxis VTE Prophylaxis Intervention: SCD's Lines/Catheters IV Catheter Type (from Nrs): Central Line Central line still needed: No Urinary Cath still in place: Yes Reason Cath still needed: urinary retention Assessment/Plan Chief Complaint/Hosp Course This is a 51-year-old female with no past medical history who was brought to the ER after cardiac arrest. Patient was doing water aerobic exercise when she collapsed. CPR was initiated by bystanders. When EMS arrived, she had agonal breathing and had very faint pulse. Shortly after however pulse was lost and was found to be in ventricular fibrillation. ROSC after about 40 minutes of resuscitation including shocks. When she arrived to the ER, she was unresponsive with dilated pupils. No gag or corneal reflex. Initially febrile with a temperature of 100.5. Labs shows creatinine 1.18, bicarb 12, glucose 369, AST 534, ALT 340. ABG on 100% FiO2 showed a pH of 6.9, PCO2 44, PO2 109 bicarb 9. Problems: Assessment/Plan Status post V-fib cardiopulmonary arrest: 40 minutes of resuscitation before ROSC RLL Aspiration PNA Vent dependent respiratory failure secondary to above Shock Liver Anoxic encephalopathy Hypotension Severe Cardiomyopathy -s/p hyopthermia protocol -off pressor support -no antiarrythmics necessary at this time -recheck echo in a few days -if patient recovers possible cath/AICD -no caridac meds for low EF due to hypotension -poor prognosis and possible extubation in the near future Subjective 24 Hr Interval Summary Free Text/Dictation The patient with no cahnge neurologically Exam/Review of Systems Vital Signs Vitals Vital Signs Date Time Temp Pulse Resp B/P Pulse Ox O2 Delivery O2 Flow Rate FiO2 07/01/17 05:00 94 20 137/77 97 Mechanical Ventilator 07/01/17 05:00 30 07/01/17 04:00 100.1 Intake and Output 06/30/17 06/30/17 07/01/17 15:00 23:00 07:00 Intake Total 590 ml 650 ml 550 ml Output Total 495 ml 300 ml 245 ml Balance 95 ml 350 ml 305 ml Results Result Diagram: 06/29/17 1035 06/30/17 0355 Medications Medications Current Medications Ondansetron HCl (Zofran Inj) 4 mg Q6H PRN IV NAUSEA AND/OR VOMITING; Start at 21:30 Acetaminophen (Tylenol Supp) 650 mg Q4H PRN [place] PAIN LEVEL 1-3 OR FEVER; Start 06/25/17 at 21:30 Lorazepam (Ativan) 1 mg Q2H PRN IV ANXIETY Last administered on 06/25/17 22:02 ; Admin Dose 1 MG; Start 06/25/17 at 21:30 Meperidine HCl (Demerol) 12.5 mg Q4H PRN IV POST OPERATIVE SHIVERING; Start at 21:30 Meperidine HCl (Demerol) 25 mg Q4H PRN IV POST OPERATIVE SHIVERING; Start 06/25 at 21:30 Eye Lubricant (Akwa Oint) 1 applic Q6 BOTH EYES Last administered on 07/01/17 05:22; Admin Dose 1 APPLIC; Start 06/26/17 at 00:00 Eye Lubricant 2 drop 2 drop Q6 BOTH EYES Last administered on 07/01/17 05:22; Admin Dose 2 DROP; Start 06/26/17 at 00:00 Cefepime HCl 50 ml @ 100 mls/hr Q12 IVPB Last administered on 06/30/17 20:19 ; Admin Dose 100 MLS/HR; Start 06/26/17 at 09:00 Norepinephrine/ Dextrose (Levophed/D5W) 500 ml @ 1.87 mls/hr TITRATE IV Last administered on 06/28/17 00:51; Admin Dose 3.75 MLS/HR; Start 06/26/17 at 10:30 Labetalol HCl 10 mg 10 mg Q2 PRN IV SBP GREATER THAN 160 Last administered on 15:24; Admin Dose 10 MG; Start 06/26/17 at 15:00 Vecuronium [place] 100 mg/ Dextrose 100 ml @ 4.762 mls/ hr TITRATE IV ; Start 06/27/17 at 08:00 Levetiracetam (Keppra 500 Mg/ 100ml (Pmx)) 100 ml @ 400 mls/hr Q12 IVPB Last administered on 06/30/17 20:19; Admin Dose 400 MLS/HR; Start 06/27/17 at 21:00 Acetaminophen (Tylenol Liquid) 650 mg Q6H PRN GTB PAIN AND OR ELEVATED TEMP Last administered on 07/01/17 07:46; Admin Dose 650 MG; Start 06/29/17 at 16:00 Lansoprazole (Prevacid) 30 mg DAILY@06 GTB Last administered on 07/01/17 05:21 ; Admin Dose 30 MG; Start 07/01/17 at 06:00 JON EUCEDA MD Jul 01, 2017 07:49
[2017-07-01] MEDS: CEFEPIME 1GM/50 ML (PMX) 50 ML IVPB SCH ×2 (09:05→20:27)
[2017-07-01] MEDS: LEVETIRACETAM 500 MG (PMX) 100 ML IVPB SCH ×2 (09:05→20:28)
--- NOTE | 2017-07-01 10:43 | CONS ---
Date/Time of Note Date/Time of Note DATE: 07/01/17 TIME: 10:42 Consult Date/Type/Reason Admit Date/Time Jun 25, 2017 at 21:12 Initial Consult Date 06/28/17 Type of Consultation: Pulmonary. Ordering Provider: HAYDEN LACEY Subjective No changes. Remains somnolent. Objective Vital Signs Date Time Temp Pulse Resp B/P Pulse Ox O2 Delivery O2 Flow Rate FiO2 07/01/17 10:00 99 19 144/74 97 07/01/17 09:00 30 07/01/17 07:15 101.1 Mechanical Ventilator Intake and Output 06/30/17 06/30/17 07/01/17 15:00 23:00 07:00 Intake Total 590 ml 650 ml 550 ml Output Total 495 ml 300 ml 245 ml Balance 95 ml 350 ml 305 ml Exam PHYSICAL EXAMINATION GENERAL: Well-nourished well-developed lady intubated on mechanical ventilation. Somnolent. VITAL SIGNS: see below. HEENT: Pupils equal, round, and reactive to light. CARDIAC: S1, S2, 2/6 systolic ejection murmur CHEST: Diminished air entry bilaterally. ABDOMEN: Mildly distended. Bowel sounds present no guarding or rebound EXTREMITIES: No cyanosis, clubbing edema +1 NEUROLOGIC: Unable to assess. Results/Medications Result Diagram: 06/29/17 1035 06/30/17 0355 Medications Current Medications Ondansetron HCl (Zofran Inj) 4 mg Q6H PRN IV NAUSEA AND/OR VOMITING; Start at 21:30 Acetaminophen (Tylenol Supp) 650 mg Q4H PRN [place] PAIN LEVEL 1-3 OR FEVER; Start 06/25/17 at 21:30 Lorazepam (Ativan) 1 mg Q2H PRN IV ANXIETY Last administered on 06/25/17t 22:02 ; Admin Dose 1 MG; Start 06/25/17 at 21:30 Meperidine HCl (Demerol) 12.5 mg Q4H PRN IV POST OPERATIVE SHIVERING; Start at 21:30 Meperidine HCl (Demerol) 25 mg Q4H PRN IV POST OPERATIVE SHIVERING; Start 06/25 at 21:30 Eye Lubricant (Akwa Oint) 1 applic Q6 BOTH EYES Last administered on 07/01/17t 05:22; Admin Dose 1 APPLIC; Start 06/26/17 at 00:00 Eye Lubricant 2 drop 2 drop Q6 BOTH EYES Last administered on 07/01/17 05:22; Admin Dose 2 DROP; Start 06/26/17 at 00:00 Cefepime HCl 50 ml @ 100 mls/hr Q12 IVPB Last administered on 07/01/17 09:05 ; Admin Dose 100 MLS/HR; Start 06/26/17 at 09:00 Norepinephrine/ Dextrose (Levophed/D5W) 500 ml @ 1.87 mls/hr TITRATE IV Last administered on 06/28/17 00:51; Admin Dose 3.75 MLS/HR; Start 06/26/17 at 10:30 Labetalol HCl 10 mg 10 mg Q2 PRN IV SBP GREATER THAN 160 Last administered on 15:24; Admin Dose 10 MG; Start 06/26/17 at 15:00 Vecuronium [place] 100 mg/ Dextrose 100 ml @ 4.762 mls/ hr TITRATE IV ; Start 06/27/17 at 08:00 Levetiracetam (Keppra 500 Mg/ 100ml (Pmx)) 100 ml @ 400 mls/hr Q12 IVPB Last administered on 07/01/17 09:05; Admin Dose 400 MLS/HR; Start 06/27/17 at 21:00 Acetaminophen (Tylenol Liquid) 650 mg Q6H PRN GTB PAIN AND OR ELEVATED TEMP Last administered on 07/01/17 07:46; Admin Dose 650 MG; Start 06/29/17 at 16:00 Lansoprazole (Prevacid) 30 mg DAILY@06 GTB Last administered on 07/01/17 05:21 ; Admin Dose 30 MG; Start 07/01/17 at 06:00 Assessment/Plan Chief Complaint/Hosp Course Assessment 1. V. fib arrest prolonged resuscitation before return of circulation 2. Probable anoxic brain injury 3. Hypoxemic respiratory failure with left lower lobe infiltrate and/or effusion 4. Severe cardiomyopathy with decreased ejection fraction 5. Shock liver., Prolonged resuscitation Plan 1. Continue mechanical ventilation 2. Continue antibiotic coverage 3. Tube feeding 4. Cardiology recommendations 5. Neurology recommendations Pending terminal extubation Problems: MICHAEL IRENE MD, [facility] [place] 01, 2017 10:43
--- NOTE | 2017-07-01 11:37 | CONS ---
Date/Time of Note Date/Time of Note DATE: 07/01/17 TIME: 11:35 Consult Date/Type/Reason Admit Date/Time Jun 25, 2017 at 21:12 Initial Consult Date 06/28/17 Type of Consultation: Neurology Reason for Consultation hypoxic injury Ordering Provider: HAYDEN LACEY Subjective no change in status family moving towards palliative extubation Objective Vital Signs Date Time Temp Pulse Resp B/P Pulse Ox O2 Delivery O2 Flow Rate FiO2 07/01/17 11:00 99 19 145/74 93 07/01/17 09:00 30 07/01/17 07:15 101.1 Mechanical Ventilator Intake and Output 06/30/17 06/30/17 07/01/17 15:00 23:00 07:00 Intake Total 590 ml 650 ml 550 ml Output Total 495 ml 300 ml 245 ml Balance 95 ml 350 ml 305 ml Exam unresponsive to verbal stimuli CN; sluggish dolls partial corneals and gag present Motor absent w/d Results/Medications Result Diagram: 06/29/17 1035 06/30/17 0355 Medications Current Medications Ondansetron HCl (Zofran Inj) 4 mg Q6H PRN IV NAUSEA AND/OR VOMITING; Start at 21:30 Acetaminophen (Tylenol Supp) 650 mg Q4H PRN [place] PAIN LEVEL 1-3 OR FEVER; Start 06/25/17 at 21:30 Lorazepam (Ativan) 1 mg Q2H PRN IV ANXIETY Last administered on 06/25/17 22:02 ; Admin Dose 1 MG; Start 06/25/17 at 21:30 Meperidine HCl (Demerol) 12.5 mg Q4H PRN IV POST OPERATIVE SHIVERING; Start at 21:30 Meperidine HCl (Demerol) 25 mg Q4H PRN IV POST OPERATIVE SHIVERING; Start 06/25 at 21:30 Eye Lubricant (Akwa Oint) 1 applic Q6 BOTH EYES Last administered on 07/01/17 05:22; Admin Dose 1 APPLIC; Start 06/26/17 at 00:00 Eye Lubricant 2 drop 2 drop Q6 BOTH EYES Last administered on 07/01/17 05:22; Admin Dose 2 DROP; Start 06/26/17 at 00:00 Cefepime HCl 50 ml @ 100 mls/hr Q12 IVPB Last administered on 07/01/17 09:05 ; Admin Dose 100 MLS/HR; Start 06/26/17 at 09:00 Norepinephrine/ Dextrose (Levophed/D5W) 500 ml @ 1.87 mls/hr TITRATE IV Last administered on 06/28/17 00:51; Admin Dose 3.75 MLS/HR; Start 06/26/17 at 10:30 Labetalol HCl 10 mg 10 mg Q2 PRN IV SBP GREATER THAN 160 Last administered on 15:24; Admin Dose 10 MG; Start 06/26/17 at 15:00 Vecuronium [place] 100 mg/ Dextrose 100 ml @ 4.762 mls/ hr TITRATE IV ; Start 06/27/17 at 08:00 Levetiracetam (Keppra 500 Mg/ 100ml (Pmx)) 100 ml @ 400 mls/hr Q12 IVPB Last administered on 07/01/17 09:05; Admin Dose 400 MLS/HR; Start 06/27/17 at 21:00 Acetaminophen (Tylenol Liquid) 650 mg Q6H PRN GTB PAIN AND OR ELEVATED TEMP Last administered on 07/01/17 07:46; Admin Dose 650 MG; Start 06/29/17 at 16:00 Lansoprazole (Prevacid) 30 mg DAILY@06 GTB Last administered on 07/01/17 05:21 ; Admin Dose 30 MG; Start 07/01/17 at 06:00 Assessment/Plan Chief Complaint/Hosp Course 66 yo female admitted with cardiac arrest with ROSC after 40 mins was in PEA and V fib s/p shock admitted to ICU with shock liver, respiratory failure, Keppra added for myoclonus. MRI Brain: ischemic injury to bilateral hippocampal gyri EEG with burst suppression pattern 3-4 Hz- generally a/w poor prognosis for meaningful neurologic recovery Recommendations: continue seizure precautions on Keppra given result of EEG and MRI likely poor prognosis for meaningful recovery discussed with family (sister and [id number] today at bedside more in detail regarding EEG and MRI findings) reviewed MRI images with family they understand the results mean she is not brain but EEG shows slowing and is very abnormal with a burst suppression pattern they wish to move towards a palliative extubation when further family members arrive planned for another family meeting tomorrow should there be any questions/concerns Dr. Trejo will be covering me tomorrow Problems: JESSICA HALL MD Jul 01, 2017 11:37
--- NOTE | 2017-07-01 17:25 | PN ---
Date/Time of Note Date/Time of Note DATE: 07/01/17 TIME: 17:24 Assessment/Plan VTE Prophylaxis VTE Prophylaxis Intervention: LMWH Lines/Catheters IV Catheter Type (from Nrsg): Central Line Central line still needed: Yes Urinary Cath still in place: Yes Reason Cath still needed: urinary retention Assessment/Plan Chief Complaint/Hosp Course 66 yo female who suffered VT arrest with ROSC, found to have systolic cardiomyopathy. S/p hypothermia protocol with poor neurologic status. Pending palliative extubation when family arrives later this week CV: Systolic cardiomyopathy, s/p VT arrest, s/p hypothermia protocol - Continue pressor as needed for BP support PULM Resipratory faiulre 12/10 cerebral ischemia: - continue MV for now NEURO: Anoxic brain injury leading to comatose state -Seizure ppx per neurology - Palliative extubation per family wishes PPx: HSQ, PPI DNR Pending palliative extubation tomorrow Problems: Subjective 24 Hr Interval Summary Free Text/Dictation No change to clinical status Planning for palliative extubation tomorrow Sister at bedside in agreement Exam/Review of Systems Vital Signs Vitals Vital Signs Date Time Temp Pulse Resp B/P Pulse Ox O2 Delivery O2 Flow Rate FiO2 07/01/17 16:00 99.4 90 17 133/68 98 07/01/17 09:00 30 07/01/17 07:15 Mechanical Ventilator Intake and Output 06/30/17 06/30/17 07/01/17 15:00 23:00 07:00 Intake Total 590 ml 650 ml 550 ml Output Total 495 ml 300 ml 245 ml Balance 95 ml 350 ml 305 ml Results Result Diagram: 06/29/17 1035 06/30/17 0355 Medications Medications Current Medications Ondansetron HCl (Zofran Inj) 4 mg Q6H PRN IV NAUSEA AND/OR VOMITING; Start at 21:30 Acetaminophen (Tylenol Supp) 650 mg Q4H PRN [place] PAIN LEVEL 1-3 OR FEVER; Start 06/25/17 at 21:30 Lorazepam (Ativan) 1 mg Q2H PRN IV ANXIETY Last administered on 06/25/17t 22:02 ; Admin Dose 1 MG; Start 06/25/17 at 21:30 Meperidine HCl (Demerol) 12.5 mg Q4H PRN IV POST OPERATIVE SHIVERING; Start at 21:30 Meperidine HCl (Demerol) 25 mg Q4H PRN IV POST OPERATIVE SHIVERING; Start 06/25 at 21:30 Eye Lubricant (Akwa Oint) 1 applic Q6 BOTH EYES Last administered on 07/01/17 12:52; Admin Dose 1 APPLIC; Start 06/26/17 at 00:00 Eye Lubricant 2 drop 2 drop Q6 BOTH EYES Last administered on 07/01/17 12:52; Admin Dose 2 DROP; Start 06/26/17 at 00:00 Cefepime HCl 50 ml @ 100 mls/hr Q12 IVPB Last administered on 07/01/17 09:05 ; Admin Dose 100 MLS/HR; Start 06/26/17 at 09:00 Norepinephrine/ Dextrose (Levophed/D5W) 500 ml @ 1.87 mls/hr TITRATE IV Last administered on 06/28/17 00:51; Admin Dose 3.75 MLS/HR; Start 06/26/17 at 10:30 Labetalol HCl 10 mg 10 mg Q2 PRN IV SBP GREATER THAN 160 Last administered on 15:24; Admin Dose 10 MG; Start 06/26/17 at 15:00 Vecuronium [place] 100 mg/ Dextrose 100 ml @ 4.762 mls/ hr TITRATE IV ; Start 06/27/17 at 08:00 Levetiracetam (Keppra 500 Mg/ 100ml (Pmx)) 100 ml @ 400 mls/hr Q12 IVPB Last administered on 07/01/17 09:05; Admin Dose 400 MLS/HR; Start 06/27/17 at 21:00 Acetaminophen (Tylenol Liquid) 650 mg Q6H PRN GTB PAIN AND OR ELEVATED TEMP Last administered on 07/01/17 07:46; Admin Dose 650 MG; Start 06/29/17 at 16:00 Lansoprazole (Prevacid) 30 mg DAILY@06 GTB Last administered on 07/01/17 05:21 ; Admin Dose 30 MG; Start 07/01/17 at 06:00 JULY BOCANEGRA MD Jul 01, 2017 17:24
--- NOTE | 2017-07-01 18:39 | CONS ---
Date/Time of Note Date/Time of Note DATE: 07/01/17 TIME: 18:37 Assessment/Plan Assessment/Plan Chief Complaint/Hosp Course Patient is a 66-year-old female who was exercising and had a witnessed arrest. She had 40 minutes of cardiopulmonary resuscitation, intubated brought to emergency room was placed on hypothermia protocol. She has not had any spontaneous recovery from a neurological standpoint since admission. IMPRESSION: 1. 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 2. Bilateral mastoid effusions. Dr. Pat discussed findings with Bethanie Fisher RN, the ICU nurse responsible for this patient, via telephone at 06/28/2017 4:14:15 PM with read back confirmation. RPTAT: PP Janusz Pat Physician Date Time Electronically viewed and signed by Janusz Pat Physician on 06/28/2017 16: 15 LG/ CC: JESSICA HALL MD Problems: Additional Assessment/Plan Discussed goals of care with family today... the plan is compassionate extubation tomorrow at 1000 Consultation Date/Type/Reason Admit Date/Time Jun 25, 2017 at 21:12 Initial Consult Date 06/29/17 Type of Consultation: Paloliative Care Referring Provider: HAYDEN LACEY Exam/Review of Systems Vital Signs Vitals Vital Signs Date Time Temp Pulse Resp B/P Pulse Ox O2 Delivery O2 Flow Rate FiO2 07/01/17 18:00 114 22 154/86 96 07/01/17 17:30 30 07/01/17 16:00 99.4 07/01/17 07:15 Mechanical Ventilator Intake and Output 06/30/17 06/30/17 07/01/17 15:00 23:00 07:00 Intake Total 590 ml 650 ml 600 ml Output Total 495 ml 300 ml 245 ml Balance 95 ml 350 ml 355 ml Results Result Diagram: 06/29/17 1035 06/30/17 0355 Medications Medications Current Medications Ondansetron HCl (Zofran Inj) 4 mg Q6H PRN IV NAUSEA AND/OR VOMITING; Start at 21:30 Acetaminophen (Tylenol Supp) 650 mg Q4H PRN [place] PAIN LEVEL 1-3 OR FEVER; Start 06/25/17 at 21:30 Lorazepam (Ativan) 1 mg Q2H PRN IV ANXIETY Last administered on 06/25/17 22:02 ; Admin Dose 1 MG; Start 06/25/17 at 21:30 Meperidine HCl (Demerol) 12.5 mg Q4H PRN IV POST OPERATIVE SHIVERING; Start at 21:30 Meperidine HCl (Demerol) 25 mg Q4H PRN IV POST OPERATIVE SHIVERING; Start 06/25 at 21:30 Eye Lubricant (Akwa Oint) 1 applic Q6 BOTH EYES Last administered on 07/01/17 18:26; Admin Dose 1 APPLIC; Start 06/26/17 at 00:00 Eye Lubricant 2 drop 2 drop Q6 BOTH EYES Last administered on 07/01/17 18:26; Admin Dose 2 DROP; Start 06/26/17 at 00:00 Cefepime HCl 50 ml @ 100 mls/hr Q12 IVPB Last administered on 07/01/17 09:05 ; Admin Dose 100 MLS/HR; Start 06/26/17 at 09:00 Norepinephrine/ Dextrose (Levophed/D5W) 500 ml @ 1.87 mls/hr TITRATE IV Last administered on 06/28/17 00:51; Admin Dose 3.75 MLS/HR; Start 06/26/17 at 10:30 Labetalol HCl 10 mg 10 mg Q2 PRN IV SBP GREATER THAN 160 Last administered on 15:24; Admin Dose 10 MG; Start 06/26/17 at 15:00 Vecuronium [place] 100 mg/ Dextrose 100 ml @ 4.762 mls/ hr TITRATE IV ; Start 06/27/17 at 08:00 Levetiracetam (Keppra 500 Mg/ 100ml (Pmx)) 100 ml @ 400 mls/hr Q12 IVPB Last administered on 07/01/17 09:05; Admin Dose 400 MLS/HR; Start 06/27/17 at 21:00 Acetaminophen (Tylenol Liquid) 650 mg Q6H PRN GTB PAIN AND OR ELEVATED TEMP Last administered on 07/01/17 07:46; Admin Dose 650 MG; Start 06/29/17 at 16:00 Lansoprazole (Prevacid) 30 mg DAILY@06 GTB Last administered on 07/01/17 05:21 ; Admin Dose 30 MG; Start 07/01/17 at 06:00 BREN GARCIA Jul 01, 2017 18:39
[2017-07-02] VITALS (29 sets, daily range): BP systolic 100–159; BP diastolic 55–99; PULSE 100–127; RESP 14–30
[2017-07-02] MEDS: LANSOPRAZOLE 30 MG CAP GTB SCH (06:00)
[2017-07-02] MEDS: ARTIFICIAL TEARS 15 ML OPH BOTH EYES SCH ×3 (06:17→07:43)
[2017-07-02] MEDS: OCULAR LUBRICANT 3.5 GM OPH OINT BOTH EYES SCH ×3 (06:17→07:43)
[2017-07-02] MEDS: LEVETIRACETAM 500 MG (PMX) 100 ML IVPB SCH (07:45)
[2017-07-02] MEDS: ACETAMINOPHEN 650MG/20.3ML CUP GTB PRN (07:45)
[2017-07-02] MEDS: CEFEPIME 1GM/50 ML (PMX) 50 ML IVPB SCH (07:51)
--- NOTE | 2017-07-02 08:04 | PN ---
Date/Time of Note Date/Time of Note DATE: 07/02/17 TIME: 08:03 Assessment/Plan VTE Prophylaxis VTE Prophylaxis Intervention: SCD's Lines/Catheters [facility] Central Line Central line still needed: No Urinary Cath still in place: No Assessment/Plan Chief Complaint/Hosp Course This is a 51-year-old female with no past medical history who was brought to the ER after cardiac arrest. Patient was doing water aerobic exercise when she collapsed. CPR was initiated by bystanders. When EMS arrived, she had agonal breathing and had very faint pulse. Shortly after however pulse was lost and was found to be in ventricular fibrillation. ROSC after about 40 minutes of resuscitation including shocks. When she arrived to the ER, she was unresponsive with dilated pupils. No gag or corneal reflex. Initially febrile with a temperature of 100.5. Labs shows creatinine 1.18, bicarb 12, glucose 369, AST 534, ALT 340. ABG on 100% FiO2 showed a pH of 6.9, PCO2 44, PO2 109 bicarb 9. Problems: Assessment/Plan Status post V-fib cardiopulmonary arrest: 40 minutes of resuscitation before ROSC RLL Aspiration PNA Vent dependent respiratory failure secondary to above Shock Liver Anoxic encephalopathy Hypotension Severe Cardiomyopathy -s/p hyopthermia protocol -off pressor support -no antiarrythmics necessary at this time -recheck echo in 2-3 days -if patient recovers possible cath/AICD -very low likelihood -no caridac meds for low EF due to hypotension -poor prognosis and possible extubation in the near future Subjective 24 Hr Interval Summary Free Text/Dictation [facility] Exam/Review of Systems Vital Signs Vitals Vital Signs Date Time Temp Pulse Resp B/P Pulse Ox O2 Delivery O2 Flow Rate FiO2 07/02/17 07:45 113 97 07/02/17 07:30 102.0 24 07/02/17 07:00 125/73 07/02/17 06:00 Mechanical Ventilator 07/02/17 05:00 30 Intake and Output 07/01/17 07/01/17 07/02/17 15:00 23:00 07:00 Intake Total 1000 ml 650 ml 550 ml Output Total 655 ml 280 ml Balance 1000 ml -5 ml 270 ml Results Result Diagram: 06/29/17 1035 06/30/17 0355 Medications Medications Current Medications Ondansetron HCl (Zofran Inj) 4 mg Q6H PRN IV NAUSEA AND/OR VOMITING; Start at 21:30 Acetaminophen (Tylenol Supp) 650 mg Q4H PRN [place] PAIN LEVEL 1-3 OR FEVER; Start 06/25/17 at 21:30 Lorazepam (Ativan) 1 mg Q2H PRN IV ANXIETY Last administered on 06/25/17 22:02 ; Admin Dose 1 MG; Start 06/25/17 at 21:30 Meperidine HCl (Demerol) 12.5 mg Q4H PRN IV POST OPERATIVE SHIVERING; Start at 21:30 Meperidine HCl (Demerol) 25 mg Q4H PRN IV POST OPERATIVE SHIVERING; Start 06/25 at 21:30 Eye Lubricant (Akwa Oint) 1 applic Q6 BOTH EYES Last administered on 07/02/17 07:43; Admin Dose 1 APPLIC; Start 06/26/17 at 00:00 Eye Lubricant 2 drop 2 drop Q6 BOTH EYES Last administered on 07/02/17 07:43; Admin Dose 2 DROP; Start 06/26/17 at 00:00 Cefepime HCl 50 ml @ 100 mls/hr Q12 IVPB Last administered on 07/02/17 07:51 ; Admin Dose 100 MLS/HR; Start 06/26/17 at 09:00 Norepinephrine/ Dextrose (Levophed/D5W) 500 ml @ 1.87 mls/hr TITRATE IV Last administered on 06/28/17 00:51; Admin Dose 3.75 MLS/HR; Start 06/26/17 at 10:30 Labetalol HCl 10 mg 10 mg Q2 PRN IV SBP GREATER THAN 160 Last administered on 15:24; Admin Dose 10 MG; Start 06/26/17 at 15:00 Vecuronium [place] 100 mg/ Dextrose 100 ml @ 4.762 mls/ hr TITRATE IV ; Start 06/27/17 at 08:00 Levetiracetam (Keppra 500 Mg/ 100ml (Pmx)) 100 ml @ 400 mls/hr Q12 IVPB Last administered on 07/02/17 07:45; Admin Dose 400 MLS/HR; Start 06/27/17 at 21:00 Acetaminophen (Tylenol Liquid) 650 mg Q6H PRN GTB PAIN AND OR ELEVATED TEMP Last administered on 07/02/17 07:45; Admin Dose 650 MG; Start 06/29/17 at 16:00 Lansoprazole (Prevacid) 30 mg DAILY@06 GTB Last administered on 07/01/17 05:21 ; Admin Dose 30 MG; Start 07/01/17 at 06:00 JON EUCEDA MD Jul 02, 2017 08:04
[2017-07-02] MEDS ORDERED: LORAZEPAM 2 MG INJ IV ONE (10:30)
[2017-07-02] MEDS ORDERED: morphine (DRIP) 100 MG/100 ML 100 ML IV SCH (10:30)
--- NOTE | 2017-07-02 10:54 | CONS ---
Date/Time of Note Date/Time of Note DATE: 07/02/17 TIME: 10:53 Consult Date/Type/Reason Admit Date/Time Jun 25, 2017 at 21:12 Initial Consult Date 06/28/17 Type of Consultation: Pulmonary Ordering Provider: HAYDEN LACEY Subjective Patient remains clinically unchanged. Unresponsive this morning. Objective Vital Signs Date Time Temp Pulse Resp B/P Pulse Ox O2 Delivery O2 Flow Rate FiO2 07/02/17 10:00 112 20 136/75 96 07/02/17 07:30 102.0 07/02/17 06:00 Mechanical Ventilator 07/02/17 05:00 30 Intake and Output 07/01/17 07/01/17 07/02/17 15:00 23:00 07:00 Intake Total 1000 ml 650 ml 550 ml Output Total 655 ml 280 ml Balance 1000 ml -5 ml 270 ml Exam PHYSICAL EXAMINATION GENERAL: Well-nourished well-developed lady intubated on mechanical ventilation. Somnolent. VITAL SIGNS: see below. HEENT: Pupils equal, round, and reactive to light. CARDIAC: S1, S2, 2/6 systolic ejection murmur CHEST: Diminished air entry bilaterally. ABDOMEN: Mildly distended. Bowel sounds present no guarding or rebound EXTREMITIES: No cyanosis, clubbing edema +1 NEUROLOGIC: Unable to assess. Results/Medications Result Diagram: 06/29/17 1035 06/30/17 0355 Medications Current Medications Morphine Sulfate/ Sodium Chloride (morphine) 100 ml @ 1 mls/hr TITRATE IV ; Start 07/02/17 at 10:30 Assessment/Plan Chief Complaint/Hosp Course Assessment 1. V. fib arrest prolonged resuscitation before return of circulation 2. Probable anoxic brain injury 3. Hypoxemic respiratory failure with left lower lobe infiltrate and/or effusion 4. Severe cardiomyopathy with decreased ejection fraction 5. Shock liver., Prolonged resuscitation Plan 1. Continue mechanical ventilation 2. Continue antibiotic coverage 3. Tube feeding 4. Cardiology recommendations 5. Neurology recommendations Pending terminal extubation Problems: MICHAEL IRENE MD, [facility] Jul 02, 2017 10:54
--- NOTE | 2017-07-02 14:07 | CONS ---
Date/Time of Note Date/Time of Note DATE: 07/02/17 TIME: 14:05 Assessment/Plan Assessment/Plan Chief Complaint/Hosp Course Patient is a 66-year-old female who was exercising and had a witnessed arrest. She had 40 minutes of cardiopulmonary resuscitation, intubated brought to emergency room was placed on hypothermia protocol. She has not had any spontaneous recovery from a neurological standpoint since admission. IMPRESSION: 1. 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 2. Bilateral mastoid effusions. Dr. Pat discussed findings with Bethanie Fisher RN, the ICU nurse responsible for this patient, via telephone at 06/28/2017 4:14:15 PM with read back confirmation. RPTAT: PP Janusz Pat Physician Date Time Electronically viewed and signed by Janusz Pat Physician on 06/28/2017 16: 15 LG/ CC: JESSICA HALL MD Problems: Additional Assessment/Plan Discuss compassionate extubation with family members today. Discussed the patient will be kept comfortable throughout the extubation process they are welcome to stay, all questions answered supports given to family members. Fears concerns ethical issues have been discussed as well as reviewing her medical course prehospitalization during his hospital course. Patient's prognosis had been discussed numerous times in the past and has been readdressed again today. We will proceed with compassionate extubation today. Consultation Date/Type/Reason Admit Date/Time Jun 25, 2017 at 21:12 Initial Consult Date 06/29/17 Type of Consultation: Palliative care Referring Provider: HAYDEN LACEY Exam/Review of Systems Vital Signs Vitals Vital Signs Date Time Temp Pulse Resp B/P Pulse Ox O2 Delivery O2 Flow Rate FiO2 07/02/17 13:00 119 148/83 89 07/02/17 12:00 98.9 07/02/17 11:45 2.0 07/02/17 10:00 20 07/02/17 08:00 30 07/02/17 06:00 Mechanical Ventilator Intake and Output 8/24/17 8/24/17 8/25/17 15:00 23:00 07:00 Intake Total 1000 ml 650 ml 550 ml Output Total 655 ml 280 ml Balance 1000 ml -5 ml 270 ml Results Result Diagram: 06/29/17 1035 06/30/17 0355 Medications Medications Current Medications Morphine Sulfate/ Sodium Chloride (morphine) 100 ml @ 1 mls/hr TITRATE IV Last administered on 07/02/17t 10:56; Admin Dose 2 MLS/HR; Start 07/02/17 at 10:30 BREN GARCIA Jul 02, 2017 14:07
--- NOTE | 2017-07-02 17:10 | PN ---
Date/Time of Note Date/Time of Note DATE: 07/02/17 TIME: 17:09 Assessment/Plan VTE Prophylaxis VTE Prophylaxis Intervention: contraindicated Lines/Catheters IV Catheter Type (from Nrsg): Central Line Central line still needed: Yes Urinary Cath still in place: No Assessment/Plan Chief Complaint/Hosp Course 66 yo female who suffered VT arrest with ROSC, found to have systolic cardiomyopathy. S/p hypothermia protocol with poor neurologic status - palliative extubation today DNR Problems: Subjective 24 Hr Interval Summary Free Text/Dictation Patient being palliatively extubated today Exam/Review of Systems Vital Signs Vitals Vital Signs Date Time Temp Pulse Resp B/P Pulse Ox O2 Delivery O2 Flow Rate FiO2 07/02/17 16:00 113 07/02/17 16:00 97.8 28 110/62 89 07/02/17 11:45 2.0 07/02/17 09:15 30 07/02/17 06:00 Mechanical Ventilator Intake and Output 07/01/17 07/01/17 07/02/17 15:00 23:00 07:00 Intake Total 1000 ml 650 ml 600 ml Output Total 655 ml 280 ml Balance 1000 ml -5 ml 320 ml Results Result Diagram: 06/29/17 1035 06/30/17 0355 Medications Medications Current Medications Morphine Sulfate/ Sodium Chloride (morphine) 100 ml @ 1 mls/hr TITRATE IV Last administered on 07/02/17t 10:56; Admin Dose 2 MLS/HR; Start 07/02/17 at 10:30 JULY BOCANEGRA MD Jul 02, 2017 17:09
--- NOTE | 2017-07-02 18:19 | DES ---
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
== END 2017-07-02 18:16 | disposition expired | DRG 308 ==
LOC: E/R 18:42 → EDBD 21:12 → OBSVTOIN 21:12 → INTOOBSV 21:12 → ICU 21:12 → MS2 07-02 16:41
PROVIDERS: ADMIT Internal Medicine; ATTEND Internal Medicine
PROC: 06HM33Z Insertion of Infusion Device into Right Femoral Vein, Percutaneous Approach (ICD-10-PCS; 2017-06-25)
PROC: B54BZZA Ultrasonography of Right Lower Extremity Veins, Guidance (ICD-10-PCS; 2017-06-25)
PROC: 5A1955Z Respiratory Ventilation, Greater than 96 Consecutive Hours (ICD-10-PCS; principal; 2017-06-26)
PROC: 0BH17EZ Insertion of Endotracheal Airway into Trachea, Via Natural or Artificial Opening (ICD-10-PCS; 2017-06-26)
DX: I47.2 Ventricular tachycardia (principal); J96.00 Acute respiratory failure, unspecified whether with hypoxia or hypercapnia; K72.00 Acute and subacute hepatic failure without coma; I46.9 Cardiac arrest, cause unspecified; J69.0 Pneumonitis due to inhalation of food and vomit; G93.1 Anoxic brain damage, not elsewhere classified; N17.9 Acute kidney failure, unspecified; J90 Pleural effusion, not elsewhere classified; E87.2 Acidosis; M62.82 Rhabdomyolysis; I42.9 Cardiomyopathy, unspecified; I67.82 Cerebral ischemia; G25.3 Myoclonus; I95.9 Hypotension, unspecified; R55 Syncope and collapse; R94.01 Abnormal electroencephalogram [EEG]; H74.8X3 Other specified disorders of middle ear and mastoid, bilateral; Z66 Do not resuscitate; T17.900A Unspecified foreign body in respiratory tract, part unspecified causing asphyxiation, initial encounter; X58.XXXA Exposure to other specified factors, initial encounter; Y93.14 Activity, water aerobics and water exercise; Y92.34 Swimming pool (public) as the place of occurrence of the external cause
CPT/HCPCS: 31500; 36600; 70450; 70551; 71010; 71275; 80048; 80053; 80202; 82150; 82550; 82553; 82565; 82803; 82962; 83036; 83690; 83735; 84100; 84484; 84520; 85025; 85384; 85610; 85730; 87040; 87081; 87086; 92950; 93005; 93306; 94002; 94003; 94770; 95819; C9113; J0131; J0171; J0461; J0692; J1100; J1815; J1953; J2060; J2270; J3370; J3475; J3480; J7030; J7040; J7042; J7050; J7060; J7070; Q9967